=== PATIENT | male | born 1985 | race African-American/Black ===

== ENCOUNTER 2019-03-02 08:40 | Emergency (ER) | payer SELFPAY ==
[~2019-03-02] VITALS: Ht 167.6 cm; Wt 54.4 kg
[2019-03-02 08:40] VITALS: BP 146/91
[2019-03-02 09:15] LABS: BASO # 0.1 x10^3/uL (0.0-0.2); BASO % 1 % (0-3); EOS % 0 % (0-3); HEMATOCRIT 41.9 % (39.0-53.0); HEMOGLOBIN 13.6 g/dL (13.0-17.5); LYMPH % 26 % (24-48); MEAN CORPUSCULAR HEMOGLOBIN 26 pg (25-35); MEAN CORPUSCULAR HGB CONC 32 g/dL (31-37); MEAN CORPUSCULAR VOLUME 82 fL (79-100); MONO # 0.6 x10^3/uL (0.0-1.1); MONO % 6 % (0-9); NEUT # 7.6 x10^3uL (1.8-7.7); NEUT % 67 % (31-73); PLATELET COUNT 418 x10^3/uL (140-400); RED BLOOD COUNT 5.14 x10^6/uL (4.30-5.70); RED CELL DISTRIBUTION WIDTH 14.3 % (11.5-14.5); WHITE BLOOD COUNT 11.4 x10^3/uL (4.0-11.0)
[2019-03-02] MEDS ORDERED: IV NORMAL SALINE 1000ML BAG 1,000 ML IV ONE (09:15)
[2019-03-02] MEDS ORDERED: ONDANSETRON PF 4 MG/2 ML VIAL. ONE (09:20)
[2019-03-02 09:25] LABS: CREATININE 1.3 mg/dL (0.7-1.3); GFR 64.4
[2019-03-02 09:28] LABS: ACETAMIN < 2 mcg/ml (10-30); SALIC 5.3 mg/dL (2.8-20.0)
[2019-03-02 09:29] LABS: ETHANOL < 10 mg/dL (0-10)
[2019-03-02 09:33] LABS: ALBUMIN/GLOBULIN RATIO 0.7 (1.0-1.7); TOTAL BILIRUBIN 0.3 mg/dL (0.2-1.0); TOTAL PROTEIN 7.5 g/dL (6.4-8.2)
[2019-03-02 09:42] LABS: BILIRUBIN,URINE NEGATIVE (NEG); CLARITY,URINE CLEAR; COLOR,URINE YELLOW; NITRITE,URINE NEGATIVE (NEG); PROTEIN,URINE 100 mg/dL (NEG-TRACE); UROBILINOGEN,URINE 0.2 mg/dL (0.2 mg/dL)
[2019-03-02] MEDS ORDERED: ONDANSETRON PF 4 MG/2 ML VIAL. IV ONE (09:45)
[2019-03-02 09:47] LABS: AMPHETAMINE/METHAMPHETAMINE NEG (NEG); BARBITURATES NEG (NEG); BENZODIAZEPINES NEG (NEG); CANNABINOIDS POS (NEG); COCAINE NEG (NEG); METHADONE NEG (NEG); OPIATES NEG (NEG); PHENCYCLIDINE NEG (NEG)
--- NOTE | 2019-03-02 09:48 | EKG ---
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
--- NOTE | 2019-03-02 09:49 | PHYS DOC ---
Past Medical History Past Medical History: Seizure Past Surgical History: No Surgical History Alcohol Use: Occasionally Drug Use: None Adult General Chief Complaint Chief Complaint: SEIZURE HPI HPI Patient is a 33 year old L was brought here from home by EMS for evaluation of seizure activity. Patient said he had a history of seizure disorder, he was evaluated at [facility] 4 months ago for seizure activity. Patient said they did nothing for him, he is not taking any seizure medication. Patient said this morning he went to the toilet, when he came back into his bed he started shaking for a few minutes. Patient never fell down or hit his head on anything. Patient admitted of smoking heavy marijuana. He denies any head injury. Patient denies any other drugs uses. He denies any headache or neck pain, no fever. HE did request EMS to take him here. He does not want to go back to [facility]. Patient denies any abdominal pain, no chest pain, no trouble breathing. Review of Systems Review of Systems Constitutional: Denies fever or chills [] Eyes: Denies change in visual acuity, redness, or eye pain [] HENT: Denies nasal congestion or sore throat [] Respiratory: Denies cough or shortness of breath [] Cardiovascular: No additional information not addressed in HPI [] GI: Denies abdominal pain, nausea, vomiting, bloody stools or diarrhea [] : Denies dysuria or hematuria [] Musculoskeletal: Denies back pain or joint pain [] Integument: Denies rash or skin lesions [] Neurologic: Denies headache, focal weakness or sensory changes. POSITIVE FOR SEIZURE ACTIVITY. Endocrine: Denies polyuria or polydipsia [] All other systems were reviewed and found to be within normal limits, except as documented in this note. Current Medications Current Medications Current Medications Medications (Trade) Dose Ordered Sig/Zaid Start Time Stop Time Status Last Admin Dose Admin Ondansetron HCl (Zofran) 4 mg STK-MED ONCE 03/02/19 09:20 03/02/19 09:21 DC Sodium Chloride 1,000 ml @ 1,000 mls/hr 1X ONCE 03/02/19 09:15 03/02/19 10:14 DC Allergies Allergies Allergies Coded Allergies Type Severity Reaction Last Updated Verified No Known Drug Allergies 03/02/19 No Physical Exam Physical Exam Constitutional: Well developed, well nourished, no acute distress, non-toxic appearance. [] HENT: Normocephalic, atraumatic, bilateral external ears normal, oropharynx moist, no oral exudates, nose normal. [] Eyes: PERRLA, EOMI, conjunctiva normal, no discharge. [] Neck: Normal range of motion, no tenderness, supple, no stridor. [] Cardiovascular:Heart rate regular rhythm, no murmur [] Lungs & Thorax: Bilateral breath sounds clear to auscultation [] Abdomen: Bowel sounds normal, soft, no tenderness, no masses, no pulsatile masses. [] Skin: Warm, dry, no erythema, no rash. [] Back: No tenderness, no CVA tenderness. [] Extremities: No tenderness, no cyanosis, no clubbing, ROM intact, no edema. [] Neurologic: Alert and oriented X 3, normal motor function, normal sensory function, no focal deficits noted. [] Psychologic: Affect normal, judgement normal, mood normal. [] Current Patient Data Vital Signs Vital Signs Date Time Temp Pulse Resp B/P (MAP) Pulse Ox O2 Delivery O2 Flow Rate FiO2 03/02/19 08:40 98.7 114 20 146/91 (109) 90 Nasal Cannula 2.0 98.7 Lab Values Laboratory Tests Test 03/02/19 08:56 03/02/19 09:34 White Blood Count 11.4 x10^3/uL (4.0-11.0) H Red Blood Count 5.14 x10^6/uL (4.30-5.70) Hemoglobin 13.6 g/dL (13.0-17.5) Hematocrit 41.9 % (39.0-53.0) Mean Corpuscular Volume 82 fL (79-100) Mean Corpuscular Hemoglobin 26 pg (25-35) Mean Corpuscular Hemoglobin Concent 32 g/dL (31-37) Red Cell Distribution Width 14.3 % (11.5-14.5) Platelet Count 418 x10^3/uL (140-400) H Neutrophils (%) (Auto) 67 % (31-73) Lymphocytes (%) (Auto) 26 % (24-48) Monocytes (%) (Auto) 6 % (0-9) Eosinophils (%) (Auto) 0 % (0-3) Basophils (%) (Auto) 1 % (0-3) Neutrophils # (Auto) 7.6 x10^3uL (1.8-7.7) Lymphocytes # (Auto) 3.0 x10^3/uL (1.0-4.8) Monocytes # (Auto) 0.6 x10^3/uL (0.0-1.1) Eosinophils # (Auto) 0.0 x10^3/uL (0.0-0.7) Basophils # (Auto) 0.1 x10^3/uL (0.0-0.2) Sodium Level 138 mmol/L (136-145) Potassium Level 4.0 mmol/L (3.5-5.1) Chloride Level 103 mmol/L (98-107) Carbon Dioxide Level 18 mmol/L (21-32) L Anion Gap 17 (6-14) H Blood Urea Nitrogen 9 mg/dL (8-26) Creatinine 1.3 mg/dL (0.7-1.3) Estimated GFR (Cockcroft-Gault) 64.4 BUN/Creatinine Ratio 7 (6-20) Glucose Level 127 mg/dL (70-99) H Lactic Acid Level 9.3 mmol/L (0.4-2.0) *H Calcium Level 9.0 mg/dL (8.5-10.1) Total Bilirubin 0.3 mg/dL (0.2-1.0) Aspartate Amino Transferase (AST) 18 U/L (15-37) Alanine Aminotransferase (ALT) 19 U/L (16-63) Alkaline Phosphatase 71 U/L (46-116) Total Protein 7.5 g/dL (6.4-8.2) Albumin 3.0 g/dL (3.4-5.0) L Albumin/Globulin Ratio 0.7 (1.0-1.7) L Salicylates Level 5.3 mg/dL (2.8-20.0) Salicylate Last Dose Date Unknown Salicylate Last Dose Time Unknown Acetaminophen Level < 2 mcg/ml (10-30) L Acetaminophen Last Dose Date Unknown Acetaminophen Last Dose Time Unknown Ethyl Alcohol Level < 10 mg/dL (0-10) Urine Collection Type Void Urine Color Yellow Urine Clarity Clear Urine pH 5.0 Urine Specific [place] 1.015 Urine Protein 100 mg/dL (NEG-TRACE) Urine Glucose (UA) Negative mg/dL (NEG) Urine Ketones (Stick) Negative mg/dL (NEG) Urine Blood Negative (NEG) Urine Nitrite Negative (NEG) Urine Bilirubin Negative (NEG) Urine Urobilinogen Dipstick 0.2 mg/dL (0.2 mg/dL) Urine Leukocyte Esterase Small (NEG) Urine RBC 1-2 /HPF (0-2) Urine WBC 20-40 /HPF (0-4) Urine Squamous Epithelial Cells Few /LPF Urine Bacteria Few /HPF (0-FEW) Urine Hyaline Casts Few /HPF Urine Mucus Marked /LPF Urine Opiates Screen Neg (NEG) Urine Methadone Screen Neg (NEG) Urine Barbiturates Neg (NEG) Urine Phencyclidine Screen Neg (NEG) Urine Amphetamine/Methamphetamine Neg (NEG) Urine Benzodiazepines Screen Neg (NEG) Urine Cocaine Screen Neg (NEG) Urine Cannabinoids Screen Pos (NEG) Urine Ethyl Alcohol Neg (NEG) Laboratory Tests 03/02/19 08:56 Laboratory Tests 03/02/19 08:56 EKG EKG EKG was read by this physician at 9: 20 AM show heart rate 104 bpm sinus tachycardia, no STEMI[] Radiology/Procedures Radiology/Procedures [] Course & Med Decision Making Course & Med Decision Making Pertinent Labs and Imaging studies reviewed. (See chart for details) Patient refused IV fluid, IV nausea medication. Patient refused CT scan his head. Patient said he felt much better now he wanted to be released [facility]ART[facility]. Patient signed out against medical advice. Dragon Disclaimer Dragon Disclaimer This electronic medical record was generated, in whole or in part, using a voice recognition dictation system. Departure Departure Impression: Primary Impression: Seizure Disposition: 07 AGAINST MEDICAL ADVICE Condition: STABLE Patient Instructions: Discharge Against Medical Advice ESEQUIEL KELLY DO March 02, 2019 09:49
[2019-03-02 09:57] LABS: BACTERIA,URINE FEW /HPF (0-FEW); HYALINE CASTS, URINE FEW /HPF; SQUAMOUS EPITHELIAL CELL,UR FEW /LPF; WBC,URINE 20-40 /HPF (0-4)
== END 2019-03-02 09:51 | disposition home or self-care (01) ==
LOC: ER 08:40
DX: G40.909 Epilepsy, unspecified, not intractable, without status epilepticus (principal); R00.0 Tachycardia, unspecified; F12.90 Cannabis use, unspecified, uncomplicated
CPT/HCPCS: 36415; 80053; 80307; 80329; 81001; 83605; 85025; 87086; 93005; 99285; G0480

== ENCOUNTER 2019-06-18 00:36 | Emergency (ER) | payer SELFPAY ==
[~2019-06-18] VITALS: Ht 165.1 cm; Wt 59.0 kg
[2019-06-18] MEDS ORDERED: IV NORMAL SALINE 1000ML BAG 1,000 ML IV ONE ×2 (01:00→01:45)
[2019-06-18 01:44] LABS: BASO % 1 % (0-3); EOS % 0 % (0-3); HEMATOCRIT 40.3 % (39.0-53.0); HEMOGLOBIN 13.8 g/dL (13.0-17.5); LYMPH # 0.8 x10^3/uL (1.0-4.8); LYMPH % 13 % (24-48); MEAN CORPUSCULAR HEMOGLOBIN 28 pg (25-35); MEAN CORPUSCULAR HGB CONC 34 g/dL (31-37); MEAN CORPUSCULAR VOLUME 81 fL (79-100); MONO # 0.9 x10^3/uL (0.0-1.1); MONO % 16 % (0-9); NEUT # 4.3 x10^3/uL (1.8-7.7); NEUT % 70 % (31-73); PLATELET COUNT 168 x10^3/uL (140-400); RED CELL DISTRIBUTION WIDTH 15.7 % (11.5-14.5)
[2019-06-18] MEDS ORDERED: ACETAMINOPHEN 650 MG SUPP.RECT. PR ONE (01:45)
[2019-06-18 01:54] LABS: CALCIUM 8.9 mg/dL (8.5-10.1); CREATININE 1.2 mg/dL (0.7-1.3); GFR 85.4; POTASSIUM 3.9 mmol/L (3.5-5.1)
[2019-06-18 01:59] LABS: ALBUMIN 3.7 g/dL (3.4-5.0); ALBUMIN/GLOBULIN RATIO 0.9 (1.0-1.7); MAGNESIUM 1.6 mg/dL (1.8-2.4); TOTAL BILIRUBIN 0.6 mg/dL (0.2-1.0); TOTAL PROTEIN 7.8 g/dL (6.4-8.2)
[2019-06-18 02:01] LABS: BILIRUBIN,URINE NEGATIVE (NEG); CLARITY,URINE CLEAR; COLOR,URINE YELLOW; NITRITE,URINE NEGATIVE (NEG); PROTEIN,URINE 100 mg/dL (NEG-TRACE); UROBILINOGEN,URINE 0.2 mg/dL (0.2 mg/dL)
[2019-06-18 02:08] LABS: BARBITURATES NEG (NEG); BENZODIAZEPINES NEG (NEG); CANNABINOIDS POS (NEG); COCAINE NEG (NEG); METHADONE NEG (NEG); OPIATES NEG (NEG); PHENCYCLIDINE NEG (NEG)
[2019-06-18 02:09] LABS: AMPHETAMINE/METHAMPHETAMINE NEG (NEG); RBC,URINE OCC /HPF (0-2)
[2019-06-18 02:10] LABS: AMORPHOUS SEDIMENT,UR PRESENT /HPF; BACTERIA,URINE 0 /HPF (0-FEW); HYALINE CASTS, URINE FEW /HPF; SQUAMOUS EPITHELIAL CELL,UR OCC /LPF
--- NOTE | 2019-06-18 03:11 | RAD ---
AP chest. HISTORY: Fever AP view was taken of the chest. Lungs are clear. Heart is normal in size. There is no pleural effusion. IMPRESSION: 1. No acute infiltrates. Electronically signed by: Forest Field MD (06/18/2019 3:08 AM) [facility]
--- NOTE | 2019-06-18 04:35 | RAD ---
CT brain without contrast. HISTORY: Seizure CT scan of brain was done without contrast. There is no intracranial hemorrhage or subdural hematoma. There is no mass or shift of the midline. An acute CVA is not identified. Ventricles are normal in size. Sinuses are clear except for a mucous retention cyst in the left sphenoid sinus. IMPRESSION: 1. No intracranial hemorrhage or acute finding noted. PQRS Compliance Statement: One or more of the following individualized dose reduction techniques were utilized for this examination: 1. Automated exposure control 2. Adjustment of the mA and/or kV according to patient size 3. Use of iterative reconstruction technique Electronically signed by: Forest Field MD (06/18/2019 4:32 AM) [facility]
[2019-06-18 04:42] VITALS: BP 105/60
--- NOTE | 2019-06-18 05:51 | PHYS DOC ---
Past Medical History Past Medical History: Seizure Past Surgical History: No Surgical History Alcohol Use: Occasionally Drug Use: None Adult General Chief Complaint Chief Complaint: SEIZURE HPI HPI Patient is a 33 year old [f__sex] who presents with [] Review of Systems Review of Systems Constitutional: Denies fever or chills [] Eyes: Denies change in visual acuity, redness, or eye pain [] HENT: Denies nasal congestion or sore throat [] Respiratory: Denies cough or shortness of breath [] Cardiovascular: No additional information not addressed in HPI [] GI: Denies abdominal pain, nausea, vomiting, bloody stools or diarrhea [] : Denies dysuria or hematuria [] Musculoskeletal: Denies back pain or joint pain [] Integument: Denies rash or skin lesions [] Neurologic: Denies headache, focal weakness or sensory changes [] Endocrine: Denies polyuria or polydipsia [] All other systems were reviewed and found to be within normal limits, except as documented in this note. Current Medications Current Medications Current Medications Medications (Trade) Dose Ordered Sig/Zaid Start Time Stop Time Status Last Admin Dose Admin Acetaminophen (Tylenol Supp) 650 mg 1X ONCE 06/18/19 01:45 06/18/19 01:46 DC 06/18/19 01:46 650 MG Lorazepam (Ativan Inj) 1 mg 1X ONCE 06/18/19 01:45 06/18/19 01:46 DC 06/18/19 01:46 1 MG Sodium Chloride 1,000 ml @ 1,000 mls/hr 1X ONCE 06/18/19 01:45 06/18/19 02:44 DC 06/18/19 02:51 1,000 MLS/HR Allergies Allergies Allergies Coded Allergies Type Severity Reaction Last Updated Verified No Known Drug Allergies 03/02/19 No Physical Exam Physical Exam Constitutional: Well developed, well nourished, no acute distress, non-toxic appearance. [] HENT: Normocephalic, atraumatic, bilateral external ears normal, oropharynx moist, no oral exudates, nose normal. [] Eyes: PERRLA, EOMI, conjunctiva normal, no discharge. [] Neck: Normal range of motion, no tenderness, supple, no stridor. [] Cardiovascular:Heart rate regular rhythm, no murmur [] Lungs & Thorax: Bilateral breath sounds clear to auscultation [] Abdomen: Bowel sounds normal, soft, no tenderness, no masses, no pulsatile masses. [] Skin: Warm, dry, no erythema, no rash. [] Back: No tenderness, no CVA tenderness. [] Extremities: No tenderness, no cyanosis, no clubbing, ROM intact, no edema. [] Neurologic: Alert and oriented X 3, normal motor function, normal sensory function, no focal deficits noted. [] Psychologic: Affect normal, judgement normal, mood normal. [] Current Patient Data Vital Signs Vital Signs Date Time Temp Pulse Resp B/P (MAP) Pulse Ox O2 Delivery O2 Flow Rate FiO2 06/18/19 04:42 80 26 96 06/18/19 00:45 101.2 125/71 (89) Room Air 101.2 Lab Values Laboratory Tests Test 06/18/19 01:18 06/18/19 01:50 06/18/19 02:45 White Blood Count 6.0 x10^3/uL (4.0-11.0) Red Blood Count 5.00 x10^6/uL (4.30-5.70) Hemoglobin 13.8 g/dL (13.0-17.5) Hematocrit 40.3 % (39.0-53.0) Mean Corpuscular Volume 81 fL (79-100) Mean Corpuscular Hemoglobin 28 pg (25-35) Mean Corpuscular Hemoglobin Concent 34 g/dL (31-37) Red Cell Distribution Width 15.7 % (11.5-14.5) H Platelet Count 168 x10^3/uL (140-400) Neutrophils (%) (Auto) 70 % (31-73) Lymphocytes (%) (Auto) 13 % (24-48) L Monocytes (%) (Auto) 16 % (0-9) H Eosinophils (%) (Auto) 0 % (0-3) Basophils (%) (Auto) 1 % (0-3) Neutrophils # (Auto) 4.3 x10^3/uL (1.8-7.7) Lymphocytes # (Auto) 0.8 x10^3/uL (1.0-4.8) L Monocytes # (Auto) 0.9 x10^3/uL (0.0-1.1) Eosinophils # (Auto) 0.0 x10^3/uL (0.0-0.7) Basophils # (Auto) 0.0 x10^3/uL (0.0-0.2) Sodium Level 136 mmol/L (136-145) Potassium Level 3.9 mmol/L (3.5-5.1) Chloride Level 101 mmol/L (98-107) Carbon Dioxide Level 24 mmol/L (21-32) Anion Gap 11 (6-14) Blood Urea Nitrogen 9 mg/dL (8-26) Creatinine 1.2 mg/dL (0.7-1.3) Estimated GFR (Cockcroft-Gault) 85.4 BUN/Creatinine Ratio 8 (6-20) Glucose Level 89 mg/dL (70-99) Lactic Acid Level 0.5 mmol/L (0.4-2.0) Calcium Level 8.9 mg/dL (8.5-10.1) Magnesium Level 1.6 mg/dL (1.8-2.4) L Total Bilirubin 0.6 mg/dL (0.2-1.0) Aspartate Amino Transferase (AST) 19 U/L (15-37) Alanine Aminotransferase (ALT) 16 U/L (16-63) Alkaline Phosphatase 72 U/L (46-116) Creatine Kinase 155 U/L (39-308) Total Protein 7.8 g/dL (6.4-8.2) Albumin 3.7 g/dL (3.4-5.0) Albumin/Globulin Ratio 0.9 (1.0-1.7) L Urine Collection Type Unknown Urine Color Yellow Urine Clarity Clear Urine pH 5.0 Urine Specific [place] 1.015 Urine Protein 100 mg/dL (NEG-TRACE) Urine Glucose (UA) Negative mg/dL (NEG) Urine Ketones (Stick) 15 mg/dL (NEG) Urine Blood Trace (NEG) Urine Nitrite Negative (NEG) Urine Bilirubin Negative (NEG) Urine Urobilinogen Dipstick 0.2 mg/dL (0.2 mg/dL) Urine Leukocyte Esterase Negative (NEG) Urine RBC Occ /HPF (0-2) Urine WBC 1-4 /HPF (0-4) Urine Squamous Epithelial Cells Occ /LPF Urine Amorphous Sediment Present /HPF Urine Bacteria 0 /HPF (0-FEW) Urine Hyaline Casts Few /HPF Urine Mucus Marked /LPF Urine Opiates Screen Neg (NEG) Urine Methadone Screen Neg (NEG) Urine Barbiturates Neg (NEG) Urine Phencyclidine Screen Neg (NEG) Urine Amphetamine/Methamphetamine Neg (NEG) Urine Benzodiazepines Screen Neg (NEG) Urine Cocaine Screen Neg (NEG) Urine Cannabinoids Screen Pos (NEG) Urine Ethyl Alcohol Neg (NEG) Ammonia 11 mcmol/L (11-34) Laboratory Tests 06/18/19 01:18 Laboratory Tests 06/18/19 01:18 EKG EKG @0048 NSR at 85bpm, NO ST elevation, Radiology/Procedures Radiology/Procedures [] Course & Med Decision Making Course & Med Decision Making Pertinent Labs and Imaging studies reviewed. (See chart for details) [] Dragon Disclaimer Dragon Disclaimer This electronic medical record was generated, in whole or in part, using a voice recognition dictation system. Departure Departure Impression: Primary Impression: Altered mental status Additional Impression: Witnessed seizure-like activity Disposition: ADMITTED INPATIENT Admitting Physician: JOSE LUIS Cruz) Condition: GUARDED Referrals: NO PCP (PCP) Problem Qualifiers Primary Impression: Altered mental status Altered mental status type: unspecified Qualified Codes: R41.82 - Altered mental status, unspecified LUIS MCCABE DO Jun 18, 2019 05:51
[2019-06-18] MEDS ORDERED: ONDANSETRON PF 4 MG/2 ML VIAL. IV PRN (06:15)
--- NOTE | 2019-06-18 06:19 | EKG ---
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
== END 2019-06-18 06:50 | disposition left against medical advice (07) ==
LOC: ER 00:36 → UNDOADMIN 06:00 → 6 SOUTH 06:00 → ER 06:50
DX: R56.9 Unspecified convulsions (principal); R41.82 Altered mental status, unspecified
CPT/HCPCS: 36415; 70450; 71045; 80053; 80307; 81001; 82140; 82550; 83605; 83735; 85025; 87040; 93005; 96361; 96374; 99285; J2060; J7030

== ENCOUNTER 2019-10-17 02:11 | Observation (INO) | payer SELFPAY ==
[~2019-10-17] VITALS: Ht 180.3 cm; Wt 59.0 kg
[2019-10-17 02:41] LABS: BASO # 0.1 x10^3/uL (0.0-0.2); BASO % 1 % (0-3); EOS # 0.2 x10^3/uL (0.0-0.7); EOS % 1 % (0-3); HEMATOCRIT 46.1 % (39.0-53.0); HEMOGLOBIN 15.2 g/dL (13.0-17.5); LYMPH % 61 % (24-48); MEAN CORPUSCULAR HEMOGLOBIN 29 pg (25-35); MEAN CORPUSCULAR HGB CONC 33 g/dL (31-37); MEAN CORPUSCULAR VOLUME 87 fL (79-100); MONO # 0.9 x10^3/uL (0.0-1.1); MONO % 8 % (0-9); NEUT # 3.4 x10^3/uL (1.8-7.7); NEUT % 29 % (31-73); PLATELET COUNT 249 x10^3/uL (140-400); RED BLOOD COUNT 5.31 x10^6/uL (4.30-5.70); RED CELL DISTRIBUTION WIDTH 14.1 % (11.5-14.5); WHITE BLOOD COUNT 11.5 x10^3/uL (4.0-11.0)
[2019-10-17 02:50] LABS: PROTHROMBIN TIME PATIENT 13.7 SEC (11.7-14.0)
[2019-10-17 02:57] LABS: ALBUMIN 4.1 g/dL (3.4-5.0); ALBUMIN/GLOBULIN RATIO 1.1 (1.0-1.7); CALCIUM 9.6 mg/dL (8.5-10.1); CREATININE 1.5 mg/dL (0.7-1.3); MAGNESIUM 1.8 mg/dL (1.8-2.4); POTASSIUM 3.7 mmol/L (3.5-5.1); TOTAL BILIRUBIN 0.5 mg/dL (0.2-1.0)
[2019-10-17 02:59] LABS: BILIRUBIN,URINE NEGATIVE (NEG); CLARITY,URINE CLEAR; COLOR,URINE YELLOW; NITRITE,URINE NEGATIVE (NEG); PROTEIN,URINE 30 mg/dL (NEG-TRACE); UROBILINOGEN,URINE 0.2 mg/dL (0.2 mg/dL)
[2019-10-17] MEDS ORDERED: IV NORMAL SALINE 1000ML BAG 1,000 ML IV ONE (03:00)
[2019-10-17 03:05] LABS: AMPHETAMINE/METHAMPHETAMINE NEG (NEG); BARBITURATES NEG (NEG); BENZODIAZEPINES NEG (NEG); CANNABINOIDS POS (NEG); COCAINE NEG (NEG); METHADONE NEG (NEG); OPIATES NEG (NEG); PHENCYCLIDINE NEG (NEG)
[2019-10-17 03:10] LABS: SQUAMOUS EPITHELIAL CELL,UR OCC /LPF
[2019-10-17 03:11] LABS: BACTERIA,URINE 0 /HPF (0-FEW); RBC,URINE OCC /HPF (0-2); WBC,URINE OCC /HPF (0-4)
[2019-10-17 03:18] LABS: % ATYL 8 % (0-0); % LYMPHS 52 % (24-48); % MONOS 4 % (0-10); % SEGS 36 % (35-66); PLT ESTIMATE ADEQUATE (ADEQUATE)
--- NOTE | 2019-10-17 03:55 | RAD ---
CT head without contrast. CT cervical spine without contrast. PQRS statement: CT scans at this facility use dose reduction including either automated exposure control, iterative reconstructions, and /or weight based radiation dosing via mA and kV modification when appropriate to reduce radiation dose to as low as reasonably achievable. HISTORY: Headache, seizure, fell and hit head. COMPARISON: CT head June 18, 2019. CT head findings: No intracranial hemorrhage, mass, hydrocephalus, extra-axial fluid collections or infarction. Mild mucosal thickening left sphenoid sinus. Orbits, mastoids and bones are unremarkable. IMPRESSION: No acute intracranial CT abnormality. CT cervical spine findings: There is motion artifact by the patient at the skull base and cervical junction and at the C1 and C2 and upper C3 vertebra the extent of which decreases the sensitivity to detect traumatic pathology including fracture. Craniocervical junction remains intact. The lower cervical spine demonstrates intact vertebral height and alignment without a fracture. There is a linear fragment anterior and inferior left C3 transverse process, raising the possibility of a fracture, the sclerotic margins and mild spurring about its margins could indicate that this is chronic. Lung apices and paraspinal tissues are unremarkable. IMPRESSION: Motion degraded exam as described above. There is a small linear sclerotic fragment along the C3 left transverse process which could represent a small fracture fragment, possibly but not definitively chronic. FOR INTERNAL CODING PURPOSES Critical result: Critical results called to ESEQUIEL KELLY at 10/17/2019 3:51 AM. RESULT CODE: (C) Electronically signed by: Satya Leon MD (10/17/2019 3:52 AM) [facility]
--- NOTE | 2019-10-17 04:07 | PHYS DOC ---
Past Medical History Past Medical History: Seizure Past Surgical History: No Surgical History Alcohol Use: Occasionally Drug Use: None Adult General Chief Complaint Chief Complaint: SEIZURE HPI HPI Patient is a 33 year old male who was brought here from home by EMS after he was found in the bathroom having a seizure by his girlfriend. Upon arrival to ER, patient was dried heaving, was confused. MS reported that his family said he had history of seizure disorder but he was not on any medication. He was seen here twice last year for seizure activity but he signed out against medical advice. He Was seen at [facility] last year for seizure activity as well. His girlfriend stated that they did not thing for him. All other ROS is negative unless otherwise noted in HPI Review of Systems Review of Systems See above Current Medications Current Medications Current Medications Medications (Trade) Dose Ordered Sig/Zaid Start Time Stop Time Status Last Admin Dose Admin Lorazepam (Ativan Inj) 1 mg 1X ONCE 10/17/19 03:00 10/17/19 03:01 DC 10/17/19 02:59 1 MG Ondansetron HCl (Zofran) 4 mg PRN Q8HRS PRN 10/17/19 04:30 10/18/19 04:29 10/17/19 04:50 4 MG Sodium Chloride 1,000 ml @ 1,000 mls/hr 1X ONCE 10/17/19 03:00 10/17/19 03:59 DC 10/17/19 02:59 1,000 MLS/HR Allergies Allergies Allergies Coded Allergies Type Severity Reaction Last Updated Verified No Known Drug Allergies 03/02/19 No Physical Exam Physical Exam See above Constitutional: Well developed, well nourished, no acute distress, non-toxic appearance. APPEARED CONFUSED, POSTICTAL. HENT: Normocephalic, atraumatic, bilateral external ears normal, oropharynx moist, no oral exudates, nose normal. [] Eyes: PERRLA, EOMI, conjunctiva normal, no discharge. [] Neck: Normal range of motion, no tenderness, supple, no stridor. [] Cardiovascular:Heart rate regular rhythm, no murmur [] Lungs & Thorax: Bilateral breath sounds clear to auscultation [] Abdomen: Bowel sounds normal, soft, no tenderness, no masses, no pulsatile masses. [] Skin: Warm, dry, no erythema, no rash. [] Back: No tenderness, no CVA tenderness. [] Extremities: No tenderness, no cyanosis, no clubbing, ROM intact, no edema. [] Neurologic: Alert and AWAKE BUT CONFUSED, normal motor function, normal sensory function, no focal deficits noted. [] Psychologic: Affect normal, judgement normal, mood normal. [] Current Patient Data Vital Signs Vital Signs Date Time Temp Pulse Resp B/P (MAP) Pulse Ox O2 Delivery O2 Flow Rate FiO2 10/17/19 02:11 97.6 111 18 132/73 (92) 99 Nasal Cannula 2.0 97.6 Lab Values Laboratory Tests Test 10/17/19 02:31 10/17/19 02:51 White Blood Count 11.5 x10^3/uL (4.0-11.0) H Red Blood Count 5.31 x10^6/uL (4.30-5.70) Hemoglobin 15.2 g/dL (13.0-17.5) Hematocrit 46.1 % (39.0-53.0) Mean Corpuscular Volume 87 fL (79-100) Mean Corpuscular Hemoglobin 29 pg (25-35) Mean Corpuscular Hemoglobin Concent 33 g/dL (31-37) Red Cell Distribution Width 14.1 % (11.5-14.5) Platelet Count 249 x10^3/uL (140-400) Neutrophils (%) (Auto) 29 % (31-73) L Lymphocytes (%) (Auto) 61 % (24-48) H Monocytes (%) (Auto) 8 % (0-9) Eosinophils (%) (Auto) 1 % (0-3) Basophils (%) (Auto) 1 % (0-3) Neutrophils # (Auto) 3.4 x10^3/uL (1.8-7.7) Lymphocytes # (Auto) 7.0 x10^3/uL (1.0-4.8) H Monocytes # (Auto) 0.9 x10^3/uL (0.0-1.1) Eosinophils # (Auto) 0.2 x10^3/uL (0.0-0.7) Basophils # (Auto) 0.1 x10^3/uL (0.0-0.2) Segmented Neutrophils % 36 % (35-66) Lymphocytes % 52 % (24-48) H Atypical Lymphocytes % (Manual) 8 % (0-0) H Monocytes % 4 % (0-10) Platelet Estimate Adequate (ADEQUATE) Giant Platelets Occ Prothrombin Time 13.7 SEC (11.7-14.0) Prothrombin Time INR 1.1 (0.8-1.1) Activated Partial Thromboplast Time 28 SEC (24-38) Sodium Level 138 mmol/L (136-145) Potassium Level 3.7 mmol/L (3.5-5.1) Chloride Level 101 mmol/L (98-107) Carbon Dioxide Level 13 mmol/L (21-32) L Anion Gap 24 (6-14) H Blood Urea Nitrogen 21 mg/dL (8-26) Creatinine 1.5 mg/dL (0.7-1.3) H Estimated GFR (Cockcroft-Gault) 66.0 BUN/Creatinine Ratio 14 (6-20) Glucose Level 160 mg/dL (70-99) H Calcium Level 9.6 mg/dL (8.5-10.1) Magnesium Level 1.8 mg/dL (1.8-2.4) Total Bilirubin 0.5 mg/dL (0.2-1.0) Aspartate Amino Transferase (AST) 19 U/L (15-37) Alanine Aminotransferase (ALT) 13 U/L (16-63) L Alkaline Phosphatase 71 U/L (46-116) Creatine Kinase 261 U/L (39-308) Creatine Kinase MB (Mass) 3.3 ng/mL (0.0-3.6) Creatine Kinase MB Relative Index 1.3 % (0-4) Troponin I Quantitative < 0.017 ng/mL (0.000-0.055) Total Protein 8.0 g/dL (6.4-8.2) Albumin 4.1 g/dL (3.4-5.0) Albumin/Globulin Ratio 1.1 (1.0-1.7) Ethyl Alcohol Level < 10 mg/dL (0-10) Urine Collection Type Unknown Urine Color Yellow Urine Clarity Clear Urine pH 5.0 Urine Specific [place] 1.015 Urine Protein 30 mg/dL (NEG-TRACE) Urine Glucose (UA) Negative mg/dL (NEG) Urine Ketones (Stick) Negative mg/dL (NEG) Urine Blood Moderate (NEG) Urine Nitrite Negative (NEG) Urine Bilirubin Negative (NEG) Urine Urobilinogen Dipstick 0.2 mg/dL (0.2 mg/dL) Urine Leukocyte Esterase Negative (NEG) Urine RBC Occ /HPF (0-2) Urine WBC Occ /HPF (0-4) Urine Squamous Epithelial Cells Occ /LPF Urine Bacteria 0 /HPF (0-FEW) Urine Mucus Slight /LPF Urine Opiates Screen Neg (NEG) Urine Methadone Screen Neg (NEG) Urine Barbiturates Neg (NEG) Urine Phencyclidine Screen Neg (NEG) Urine Amphetamine/Methamphetamine Neg (NEG) Urine Benzodiazepines Screen Neg (NEG) Urine Cocaine Screen Neg (NEG) Urine Cannabinoids Screen Pos (NEG) Urine Ethyl Alcohol Neg (NEG) Laboratory Tests 10/17/19 02:31 Laboratory Tests 10/17/19 02:31 EKG EKG ekg was done and read at 0252, rate of 90 bpm, SINUS RHYTHM, NO STEMI. [] Radiology/Procedures Radiology/Procedures [][facility] [address] [place], [place] [id number] IMAGING REPORT Signed PATIENT: SYDNIE ARENSA ACCOUNT: [id number] : 1985 LOCATION: ER AGE: 33 SEX: M EXAM STATUS: REG ER ORD. PHYSICIAN: ESEQUIEL KELLY DO REASON: HAD SEIZURE WHILE IN THE SHOWER, FELL DOWN ON THE GROUND, HEADACHE PROCEDURE: CT HEAD AND CERVICAL SPINE WO CT head without contrast. CT cervical spine without contrast. PQRS statement: CT scans at this facility use dose reduction including either automated exposure control, iterative reconstructions, and /or weight based radiation dosing via mA and kV modification when appropriate to reduce radiation dose to as low as reasonably achievable. HISTORY: Headache, seizure, fell and hit head. COMPARISON: CT head June 18, 2019. CT head findings: No intracranial hemorrhage, mass, hydrocephalus, extra-axial fluid collections or infarction. Mild mucosal thickening left sphenoid sinus. Orbits, mastoids and bones are unremarkable. IMPRESSION: No acute intracranial CT abnormality. CT cervical spine findings: There is motion artifact by the patient at the skull base and cervical junction and at the C1 and C2 and upper C3 vertebra the extent of which decreases the sensitivity to detect traumatic pathology including fracture. Craniocervical junction remains intact. The lower cervical spine demonstrates intact vertebral height and alignment without a fracture. There is a linear fragment anterior and inferior left C3 transverse process, raising the possibility of a fracture, the sclerotic margins and mild spurring about its margins could indicate that this is chronic. Lung apices and paraspinal tissues are unremarkable. IMPRESSION: Motion degraded exam as described above. There is a small linear sclerotic fragment along the C3 left transverse process which could represent a small fracture fragment, possibly but not definitively chronic. FOR INTERNAL CODING PURPOSES Critical result: Critical results called to ESEQUIEL KELLY at 10/17/2019 3:51 AM. RESULT CODE: (C) Electronically signed by: Ashley Leon MD (10/17/2019 3:52 AM) [id number] DICTATED and SIGNED BY: ASHLEY LEON MD DATE: 10/17/19 0352 [facility] [address] [place] [address] IMAGING REPORT Signed PATIENT: SYDNIE ARENAS ACCOUNT: [id number] : 1985 LOCATION: [address] [place] [address] AGE: 33 SEX: M EXAM STATUS: ADM IN ORD. PHYSICIAN: ESEQUIEL KELLY DO REASON: FELL IN THE SHOWER, HAD A SEIZURE, NECK PAIN , POOR STUDY EARLIER. PROCEDURE: CT CERVICAL SPINE WO CONTRAST CT cervical spine without contrast PQRS statement: CT scans at this facility use dose reduction including either automated exposure control, iterative reconstructions, and /or weight based radiation dosing via mA and kV modification when appropriate to reduce radiation dose to as low as reasonably achievable. HISTORY: Fall, seizure, neck pain. FINDINGS: Craniocervical junction intact. No fracture of the cervical spine. 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 Paraspinal tissues and lung apices are unremarkable. IMPRESSION: No acute osseous injury of the cervical spine. Electronically signed by: Ashley Leon MD (10/17/2019 5:17 AM) [id number] DICTATED and SIGNED BY: ASHLEY LEON MD DATE: 10/17/19 0517 Course & Med Decision Making Course & Med Decision Making Pertinent Labs and Imaging studies reviewed. (See chart for details) Patient has recurrent seizure, was seen here twice last year for seizure activities. Patient did signed out AMA twice. He is not currently on any anti seizure medication, not sure if he has neurologic work up for his seizure activity. He was given a load dose of keppra iv and he will need to be admitted to the hospital for further evaluation . Patient was amenable to the plan of care. Dragon Disclaimer Dragon Disclaimer This electronic medical record was generated, in whole or in part, using a voice recognition dictation system. Departure Departure Impression: Primary Impression: Seizure Disposition: ADMITTED INPATIENT Admitting Physician: JOSE LUIS (Dr. Brenner) Condition: STABLE Referrals: NO PCP (PCP) ESEQUIEL KELLY DO Oct 17, 2019 04:07
[2019-10-17] MEDS ORDERED: ONDANSETRON PF 4 MG/2 ML VIAL. IV PRN ×2 (04:30→12:45)
[2019-10-17] MEDS ORDERED: levETIRAcetam 1,000 MG in IV DEXTROSE 5% 100ML 100 ML IV ONE (05:00)
--- NOTE | 2019-10-17 05:20 | RAD ---
CT cervical spine without contrast PQRS statement: CT scans at this facility use dose reduction including either automated exposure control, iterative reconstructions, and /or weight based radiation dosing via mA and kV modification when appropriate to reduce radiation dose to as low as reasonably achievable. HISTORY: Fall, seizure, neck pain. FINDINGS: Craniocervical junction intact. No fracture of the cervical spine. 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 Paraspinal tissues and lung apices are unremarkable. IMPRESSION: No acute osseous injury of the cervical spine. Electronically signed by: Satya Leon MD (10/17/2019 5:17 AM) [facility]
[2019-10-17 07:00] VITALS: BP 138/87
--- NOTE | 2019-10-17 08:30 | NUR ---
Pt admitted from ED via gurney. Pt moved to bed. Pt sleeping awakens to touch and answers questions but then drifts back to sleep. Completed assessment. Call light within reach. Will return to monitor.
--- NOTE | 2019-10-17 10:03 | PDOC1 ---
History and Physical Date of Admission Date of Admission DATE: 10/17/19 TIME: 10:02 Identification/Chief Complaint Chief Complaint seen in er , 33 year old male who was brought here from home by EMS after he was found in the bathroom having a seizure by his girlfriend. Upon arrival to ER, patient was dried heaving, was confused. MS reported that his family said he had history of seizure disorder but he was not on any medication. He was seen here twice last year for seizure activity but he signed out against medical advice. He Was seen at [facility] last year for seizure activity as well HE REPORTS HEAVY MARIJUANA USE DAILY Past Medical History Past Medical History Past Medical History Past Medical History Past Medical History: Seizure Past Surgical History: No Surgical History Alcohol Use: Occasionally Drug Use: None Family History Family History: High Cholestrol Social History Smoke: <1 pack per day ALCOHOL: occassional Drugs: None, Marijuana Current Problem List Problem List Problems Medical Problems: (1) Seizure Status: Acute Current Medications Current Medications Current Medications Sodium Chloride 1,000 ml @ 1,000 mls/hr 1X ONCE IV Last administered on 10/17/19at 02:59; Start 10/17/19 at 03:00; Stop 10/17/19 at 03:59; Status DC Lorazepam (Ativan Inj) 1 mg 1X ONCE IVP Last administered on 10/17/19at 02:59; Start 10/17/19 at 03:00; Stop 10/17/19 at 03:01; Status DC Levetiracetam 1000 mg/Dextrose 110 ml @ 440 mls/hr 1X ONCE IV Last administered on 10/17/19at 05:10; Start 10/17/19 at 05:00; Stop 10/17/19 at 05:14; Status DC Ondansetron HCl (Zofran) 4 mg PRN Q8HRS PRN IV NAUSEA/VOMITING 1ST CHOICE Last administered on 10/17/19at 04:50; Start 10/17/19 at 04:30; Stop 10/18/19 at 04:29 Lorazepam (Ativan Inj) 1 mg 1X ONCE IVP Last administered on 10/17/19at 04:44; Start 10/17/19 at 05:00; Stop 10/17/19 at 05:01; Status DC Allergies Allergies: Coded Allergies: No Known Drug Allergies (Unverified , 03/02/19) ROS Review of System 14 PT ROS OTHERWISE NEG General: No: Chills, Night Sweats, Fatigue, Malaise, Appetite, Other PSYCHOLOGICAL ROS: No: Anxiety, Behavioral Disorder, Concentration difficultie, Decreased libido, Depression, Disorientation, Hallucinations, Hostility, Irritablity, Memory difficulties, Mood Swings, Obsessive thoughts, Physical abuse, Sexual abuse, Sleep disturbances, Suicidal ideation, Other Eyes: No Blurry vision, No Decreased vision, No Double vision, No Dry eyes, No Excessive tearing, No Eye Pain, No Itchy Eyes, No Loss of vision, No Photophobia, No Scotomata, No Uses contacts, No Uses glasses, No Other ALLERGY AND IMMUNOLOGY: No: Hives, Insect Bite Sensitivity, Itchy/Watery Eyes, Nasal Congestion, Post Nasal Drip, Seasonal Allergies, Other Hematological and Lymphatic: No: Bleeding Problems, Blood Clots, Blood Transfusions, Brusing, Night Sweats, Pallor, Swollen Lymph Nodes, Other Respiratory: No: Cough, Hemoptysis, Orthopnea, Pleuritic Pain, Shortness of breath, SOB with excertion, Sputum Changes, Stridor, Tachypnea, Wheezing, Other Cardiovascular: No Chest Pain, No Palpitations, No Orthopnea, No Paroxysmal Noc. Dyspnea, No Edema, No Lt Headedness, No Other Genitourinary: No Dysuria, No Frequency, No Incontinence, No Hematuria, No Retention, No Discharge, No Urgency, No Pain, No Flank Pain, No Other, No , No , No , No , No , No , No Skin: No Dry Skin, No Eczema, No Hair Changes, No Lumps, No Mole Changes, No Mottling, No Nail Changes, No Pruritus, No Rash, No Skin Lesion Changes, No Other, No Acne Physical Exam Physical Exam Physical Exam Physical Exam See above Constitutional: Well developed, well nourished, no acute distress, non-toxic appearance. APPEARED CONFUSED, POSTICTAL. in ER, NOW ALERT, ORIENTED HENT: Normocephalic, atraumatic, bilateral external ears normal, oropharynx moist, no oral exudates, nose normal. [] Eyes: PERRLA, EOMI, conjunctiva normal, no discharge. [] Neck: Normal range of motion, no tenderness, supple, no stridor. [] Cardiovascular:Heart rate regular rhythm, no murmur [] Lungs & Thorax: Bilateral breath sounds clear to auscultation [] Abdomen: Bowel sounds normal, soft, no tenderness, no masses, no pulsatile masses. [] Skin: Warm, dry, no erythema, no rash. [] Back: No tenderness, no CVA tenderness. [] Extremities: No tenderness, no cyanosis, no clubbing, ROM intact, no edema. [] Neurologic: Alert and normal motor function, normal sensory function, no focal deficits noted. [] Psychologic: Affect normal, judgment normal, mood normal. [ General: Alert, Oriented X3, Cooperative, No acute distress HEENT: Atraumatic, EOMI, Mucous membr. moist/pink Lungs: Clear to auscultation Heart: RRR Breasts: Not examined Rectal Exam: not examined PELVIC: Examination not indicated Extremities: No cyanosis Neuro: Normal speech, Cranial nerves 3-12 NL Psych/Mental Status: Mental status NL, Mood NL Vitals Vitals Vital Signs Date Time Temp Pulse Resp B/P (MAP) Pulse Ox O2 Delivery O2 Flow Rate FiO2 10/17/19 07:00 98.2 75 16 138/87 (104) 100 Room Air 98.2 10/17/19 02:11 2.0 Labs Labs Laboratory Tests Test 10/17/19 02:31 10/17/19 02:51 White Blood Count 11.5 x10^3/uL (4.0-11.0) Red Blood Count 5.31 x10^6/uL (4.30-5.70) Hemoglobin 15.2 g/dL (13.0-17.5) Hematocrit 46.1 % (39.0-53.0) Mean Corpuscular Volume 87 fL (79-100) Mean Corpuscular Hemoglobin 29 pg (25-35) Mean Corpuscular Hemoglobin Concent 33 g/dL (31-37) Red Cell Distribution Width 14.1 % (11.5-14.5) Platelet Count 249 x10^3/uL (140-400) Neutrophils (%) (Auto) 29 % (31-73) Lymphocytes (%) (Auto) 61 % (24-48) Monocytes (%) (Auto) 8 % (0-9) Eosinophils (%) (Auto) 1 % (0-3) Basophils (%) (Auto) 1 % (0-3) Neutrophils # (Auto) 3.4 x10^3/uL (1.8-7.7) Lymphocytes # (Auto) 7.0 x10^3/uL (1.0-4.8) Monocytes # (Auto) 0.9 x10^3/uL (0.0-1.1) Eosinophils # (Auto) 0.2 x10^3/uL (0.0-0.7) Basophils # (Auto) 0.1 x10^3/uL (0.0-0.2) Segmented Neutrophils % 36 % (35-66) Lymphocytes % 52 % (24-48) Atypical Lymphocytes % (Manual) 8 % (0-0) Monocytes % 4 % (0-10) Platelet Estimate Adequate (ADEQUATE) Giant Platelets Occ Prothrombin Time 13.7 SEC (11.7-14.0) Prothromb Time International Ratio 1.1 (0.8-1.1) Activated Partial Thromboplast Time 28 SEC (24-38) Sodium Level 138 mmol/L (136-145) Potassium Level 3.7 mmol/L (3.5-5.1) Chloride Level 101 mmol/L (98-107) Carbon Dioxide Level 13 mmol/L (21-32) Anion Gap 24 (6-14) Blood Urea Nitrogen 21 mg/dL (8-26) Creatinine 1.5 mg/dL (0.7-1.3) Estimated GFR (Cockcroft-Gault) 66.0 BUN/Creatinine Ratio 14 (6-20) Glucose Level 160 mg/dL (70-99) Calcium Level 9.6 mg/dL (8.5-10.1) Magnesium Level 1.8 mg/dL (1.8-2.4) Total Bilirubin 0.5 mg/dL (0.2-1.0) Aspartate Amino Transf (AST/SGOT) 19 U/L (15-37) Alanine Aminotransferase (ALT/SGPT) 13 U/L (16-63) Alkaline Phosphatase 71 U/L (46-116) Creatine Kinase 261 U/L (39-308) Creatine Kinase MB (Mass) 3.3 ng/mL (0.0-3.6) Creatine Kinase MB Relative Index 1.3 % (0-4) Troponin I Quantitative < 0.017 ng/mL (0.000-0.055) Total Protein 8.0 g/dL (6.4-8.2) Albumin 4.1 g/dL (3.4-5.0) Albumin/Globulin Ratio 1.1 (1.0-1.7) Ethyl Alcohol Level < 10 mg/dL (0-10) Urine Collection Type Unknown Urine Color Yellow Urine Clarity Clear Urine pH 5.0 Urine Specific [place] 1.015 Urine Protein 30 mg/dL (NEG-TRACE) Urine Glucose (UA) Negative mg/dL (NEG) Urine Ketones (Stick) Negative mg/dL (NEG) Urine Blood Moderate (NEG) Urine Nitrite Negative (NEG) Urine Bilirubin Negative (NEG) Urine Urobilinogen Dipstick 0.2 mg/dL (0.2 mg/dL) Urine Leukocyte Esterase Negative (NEG) Urine RBC Occ /HPF (0-2) Urine WBC Occ /HPF (0-4) Urine Squamous Epithelial Cells Occ /LPF Urine Bacteria 0 /HPF (0-FEW) Urine Mucus Slight /LPF Urine Opiates Screen Neg (NEG) Urine Methadone Screen Neg (NEG) Urine Barbiturates Neg (NEG) Urine Phencyclidine Screen Neg (NEG) Urine Amphetamine/Methamphetamine Neg (NEG) Urine Benzodiazepines Screen Neg (NEG) Urine Cocaine Screen Neg (NEG) Urine Cannabinoids Screen Pos (NEG) Urine Ethyl Alcohol Neg (NEG) Laboratory Tests Test 10/17/19 02:31 10/17/19 02:51 White Blood Count 11.5 x10^3/uL (4.0-11.0) Red Blood Count 5.31 x10^6/uL (4.30-5.70) Hemoglobin 15.2 g/dL (13.0-17.5) Hematocrit 46.1 % (39.0-53.0) Mean Corpuscular Volume 87 fL (79-100) Mean Corpuscular Hemoglobin 29 pg (25-35) Mean Corpuscular Hemoglobin Concent 33 g/dL (31-37) Red Cell Distribution Width 14.1 % (11.5-14.5) Platelet Count 249 x10^3/uL (140-400) Neutrophils (%) (Auto) 29 % (31-73) Lymphocytes (%) (Auto) 61 % (24-48) Monocytes (%) (Auto) 8 % (0-9) Eosinophils (%) (Auto) 1 % (0-3) Basophils (%) (Auto) 1 % (0-3) Neutrophils # (Auto) 3.4 x10^3/uL (1.8-7.7) Lymphocytes # (Auto) 7.0 x10^3/uL (1.0-4.8) Monocytes # (Auto) 0.9 x10^3/uL (0.0-1.1) Eosinophils # (Auto) 0.2 x10^3/uL (0.0-0.7) Basophils # (Auto) 0.1 x10^3/uL (0.0-0.2) Segmented Neutrophils % 36 % (35-66) Lymphocytes % 52 % (24-48) Atypical Lymphocytes % (Manual) 8 % (0-0) Monocytes % 4 % (0-10) Platelet Estimate Adequate (ADEQUATE) Giant Platelets Occ Prothrombin Time 13.7 SEC (11.7-14.0) Prothromb Time International Ratio 1.1 (0.8-1.1) Activated Partial Thromboplast Time 28 SEC (24-38) Sodium Level 138 mmol/L (136-145) Potassium Level 3.7 mmol/L (3.5-5.1) Chloride Level 101 mmol/L (98-107) Carbon Dioxide Level 13 mmol/L (21-32) Anion Gap 24 (6-14) Blood Urea Nitrogen 21 mg/dL (8-26) Creatinine 1.5 mg/dL (0.7-1.3) Estimated GFR (Cockcroft-Gault) 66.0 BUN/Creatinine Ratio 14 (6-20) Glucose Level 160 mg/dL (70-99) Calcium Level 9.6 mg/dL (8.5-10.1) Magnesium Level 1.8 mg/dL (1.8-2.4) Total Bilirubin 0.5 mg/dL (0.2-1.0) Aspartate Amino Transf (AST/SGOT) 19 U/L (15-37) Alanine Aminotransferase (ALT/SGPT) 13 U/L (16-63) Alkaline Phosphatase 71 U/L (46-116) Creatine Kinase 261 U/L (39-308) Creatine Kinase MB (Mass) 3.3 ng/mL (0.0-3.6) Creatine Kinase MB Relative Index 1.3 % (0-4) Troponin I Quantitative < 0.017 ng/mL (0.000-0.055) Total Protein 8.0 g/dL (6.4-8.2) Albumin 4.1 g/dL (3.4-5.0) Albumin/Globulin Ratio 1.1 (1.0-1.7) Ethyl Alcohol Level < 10 mg/dL (0-10) Urine Collection Type Unknown Urine Color Yellow Urine Clarity Clear Urine pH 5.0 Urine Specific [place] 1.015 Urine Protein 30 mg/dL (NEG-TRACE) Urine Glucose (UA) Negative mg/dL (NEG) Urine Ketones (Stick) Negative mg/dL (NEG) Urine Blood Moderate (NEG) Urine Nitrite Negative (NEG) Urine Bilirubin Negative (NEG) Urine Urobilinogen Dipstick 0.2 mg/dL (0.2 mg/dL) Urine Leukocyte Esterase Negative (NEG) Urine RBC Occ /HPF (0-2) Urine WBC Occ /HPF (0-4) Urine Squamous Epithelial Cells Occ /LPF Urine Bacteria 0 /HPF (0-FEW) Urine Mucus Slight /LPF Urine Opiates Screen Neg (NEG) Urine Methadone Screen Neg (NEG) Urine Barbiturates Neg (NEG) Urine Phencyclidine Screen Neg (NEG) Urine Amphetamine/Methamphetamine Neg (NEG) Urine Benzodiazepines Screen Neg (NEG) Urine Cocaine Screen Neg (NEG) Urine Cannabinoids Screen Pos (NEG) Urine Ethyl Alcohol Neg (NEG) Images Images CT cervical spine without contrast PQRS statement: CT scans at this facility use dose reduction including either automated exposure control, iterative reconstructions, and /or weight based radiation dosing via mA and kV modification when appropriate to reduce radiation dose to as low as reasonably achievable. HISTORY: Fall, seizure, neck pain. FINDINGS: Craniocervical junction intact. No fracture of the cervical spine. 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 Paraspinal tissues and lung apices are unremarkable. IMPRESSION: No acute osseous injury of the cervical spine. Electronically signed by: Satya Leon MD (10/17/2019 5:17 AM) [facility] DICTATED and SIGNED BY: SATYA LEON MD DATE: 10/17/[address] head without contrast. CT cervical spine without contrast. PQRS statement: CT scans at this facility use dose reduction including either automated exposure control, iterative reconstructions, and /or weight based radiation dosing via mA and kV modification when appropriate to reduce radiation dose to as low as reasonably achievable. HISTORY: Headache, seizure, fell and hit head. COMPARISON: CT head June 18, 2019. CT head findings: No intracranial hemorrhage, mass, hydrocephalus, extra-axial fluid collections or infarction. Mild mucosal thickening left sphenoid sinus. Orbits, mastoids and bones are unremarkable. IMPRESSION: No acute intracranial CT abnormality. CT cervical spine findings: There is motion artifact by the patient at the skull base and cervical junction and at the C1 and C2 and upper C3 vertebra the extent of which decreases the sensitivity to detect traumatic pathology including fracture. Craniocervical junction remains intact. The lower cervical spine demonstrates intact vertebral height and alignment without a fracture. There is a linear fragment anterior and inferior left C3 transverse process, raising the possibility of a fracture, the sclerotic margins and mild spurring about its margins could indicate that this is chronic. Lung apices and paraspinal tissues are unremarkable. IMPRESSION: Motion degraded exam as described above. There is a small linear sclerotic fragment along the C3 left transverse process which could represent a small fracture fragment, possibly but not definitively chronic. VTE Prophylaxis Ordered VTE Prophylaxis Devices: Yes VTE Pharmacological Prophylaxi: Yes Assessment/Plan Assessment/Plan IMPRESSION: ACUTE SEIZURE No acute intracranial CT abnormality. THC ABUSE PLAN ADMIT SEIZURE PRECAUTIONS NEUROLOGY CONSULT HAWK REN MD Oct 17, 2019 10:03
--- NOTE | 2019-10-17 10:42 | EKG ---
[facility] [address] [place] [id number] Test Date: 2019-10-17 Test Time: 02:50:01 Pat Name: SYDNIE ARENAS Department: Room: Gender: M [employer]: : [id number] Requested By: ESEQUIEL KELLY Order Number: [id number] Reading MD: Measurements Intervals [place] Rate: 90 P: 36 IL: 178 QRS: 70 QRSD: 88 T: 43 QT: 368 QTc: 454 Interpretive Statements SINUS RHYTHM QRS(T) CONTOUR ABNORMALITY CONSIDER ANTEROSEPTAL MYOCARDIAL DAMAGE ST & T ABNORMALITY, CONSIDER RECENT INFERIOR MYOCARDIAL OR PERICARDIAL DAMAGE ABNORMAL ECG RI6.01 No previous ECG available for comparison
[2019-10-17 11:00] VITALS: BP 123/73
[2019-10-17] MEDS ORDERED: ALBUTEROL SULFATE 2.5 MG/3 ML NEBU. NEB PRN (12:45)
[2019-10-17] MEDS ORDERED: LORazepam 0.5 MG TABLET PO PRN (12:45)
[2019-10-17] MEDS ORDERED: 0.9 % SODIUM CHLORIDE 10 ML DISP.SYRIN. IV PRN (12:45)
[2019-10-17] MEDS ORDERED: DOCUSATE SODIUM 100 MG CAPSULE. PO PRN (12:45)
[2019-10-17] MEDS ORDERED: cloNIDine HCL 0.1 MG TABLET PO PRN (12:45)
[2019-10-17] MEDS ORDERED: MAG HYDROX/ALUMINUM HYD/SIMETH 30 ML ORAL.SUSP PO PRN (12:45)
[2019-10-17] MEDS ORDERED: guaiFENesin ORAL 200 MG/10 ML LIQUID. PO PRN (12:45)
[2019-10-17] MEDS ORDERED: ACETAMINOPHEN 325 MG TABLET. PO PRN (12:45)
--- NOTE | 2019-10-17 15:11 | NUR ---
Pt states he would like to leave AMA because he needs to be at work. Paged and updated Dr. Brenner. IV removed. Pt verbalized understanding and signed AMA form.
--- NOTE | 2019-10-17 15:17 | NUR ---
Pt taken out by [employer] and .
--- NOTE | 2019-10-17 16:16 | PDOC2 ---
NEUROLOGY CONSULT Date of Admission Date of Admission DATE: 10/17/19 TIME: 16:07 Reason for Consult Reason for Consult: IMPRESSION: Seizure, provoked by drug. Marijuana use/abuse. RECOMMENDATIONS/PLAN: Dilantin 300 mg HS. FU with PCP. See Psychiatry. Drug abstinence. No driving x 6 months anytime after a seizure or seizure like episode. HISTORY OF THE PRESENT ILLNESS: This is a 33-year-old AA male who was brought here from home by EMS after he was found in the bathroom having a seizure by his girlfriend. Upon arrival to ER, patient was dried heaving, was confused. MS reported that his family said he had history of seizure disorder but he has not taken medication. Keppra was prescribed to him in the past but he stated he never took due to cost. He was seen in the ER of [facility] twice last year for seizure activity but he signed out against medical advice. Past Medical History Seizure. Past Surgical History No major surgery recently. Family History High Cholesterol Social History Smoke: <1 pack per day ALCOHOL: occassional Drugs: Marijuana q2h daily x 10 years. ALLERGY: Unknown MEDICATIONS: Refer to MAR REVIEW OF SYSTEMS: Constitutional: No malnutrition, weight loss, cachexia. Head: No traumatic brain or head injury. Skin: No edema, or rash. Ear: No infection. Eyes: No vision loss or color blindness. Nose: No bleeding or purulent discharges. Hearing: No hearing decrease. Neck: No injury. Cardiac: No GA, or arrhythmia. Pulmonary: No COPD. GI: No GI ulcer, GI bleeding. Urinary/genital: No dysuria, hematuria, incontinence, urinary retention. Endocrinologic: No cousin face, craniofacial dysmorphism. Skeletomuscular: No muscular atrophy, deformity. Neurological: see HP. Psychiatric: Marijuana use/abuse. Otherwise, not -bwzad review of systems. PHYSICAL EXAMINATION: General appearance is in no acute distress. HEENT: Normocephalic and nontraumatic. Eyes, nose, ears, and throat are unremarkable. Neck is supple. No lymphadenopathy. No bruits are heard over the carotid artery. No crepitus. Cardiovascular: S1, S2, regular rate and rhythm. Pulmonary: Clear to auscultation bilaterally. Abdomen: Bowel sounds are positive. Abdomen is soft, nontender, and nondistended. Extremities: No rash, lesions, or edema. No restriction of range of motion NEUROLOGICAL EXAMINATION: Alert Oriented to time, place and person. PERRL. EOMI. CN: no focal findings. Muscle tone: within normal. Muscle strength: 5 DTR: 2 Plantar reflex: Flexor response bilaterally Gait: not examined in bed. Sensory exam: no abnormal findings. No cerebellar signs elicited. F-T-N test fine. Current Medications Current Medications Current Medications Sodium Chloride 1,000 ml @ 1,000 mls/hr 1X ONCE IV Last administered on 10/17at 02:59; Start 10/17/19 at 03:00; Stop 10/17/19 at 03:59; Status DC Lorazepam (Ativan Inj) 1 mg 1X ONCE IVP Last administered on 10/17/19at 02:59; Start 10/17/19 at 03:00; Stop 10/17/19 at 03:01; Status DC Levetiracetam 1000 mg/Dextrose 110 ml @ 440 mls/hr 1X ONCE IV Last administered on 10/17/19at 05:10; Start 10/17/19 at 05:00; Stop 10/17/19 at 05:14; Status DC Ondansetron HCl (Zofran) 4 mg PRN Q8HRS PRN IV NAUSEA/VOMITING 1ST CHOICE Last administered on 10/17/19at 04:50; Start 10/17/19 at 04:30; Stop 10/17/19 at 15:24; Status DC Lorazepam (Ativan Inj) 1 mg 1X ONCE IVP Last administered on 10/17/19at 04:44; Start 10/17/19 at 05:00; Stop 10/17/19 at 05:01; Status DC Sodium Chloride (Normal Saline Flush) 3 ml QSHIFT PRN IV AFTER MEDS AND BLOOD DRAWS; Start 10/17/19 at 12:45; Stop 10/17/19 at 15:24; Status DC Ondansetron HCl (Zofran) 4 mg PRN Q4HRS PRN IV NAUSEA/VOMITING; Start 10/17/19 at 12:45; Stop 10/17/19 at 15:24; Status DC Acetaminophen (Tylenol) 650 mg PRN Q4HRS PRN PO TEMP OVER 100.4F OR MILD PAIN; Start 10/17/19 at 12:45; Stop 10/17/19 at 15:24; Status DC Al Hydroxide/Mg Hydroxide (Mylanta Plus Xs) 30 ml PRN DAILY PRN PO HEARTBURN / GAS; Start 10/17/19 at 12:45; Stop 10/17/19 at 15:24; Status DC Clonidine HCl (Catapres) 0.1 mg PRN Q6HRS PRN PO SBP>160 OR DBP>90; Start 10/17/19 at 12:45; Stop 10/17/19 at 15:24; Status DC Docusate Sodium (Colace) 100 mg PRN BID PRN PO CONSTIPATION; Start 10/17/19 at 12:45; Stop 10/17/19 at 15:24; Status DC Albuterol Sulfate (Ventolin Neb Soln) 2.5 mg PRN Q4HRS PRN NEB SHORTNESS OF BREATH; Start 10/17/19 at 12:45; Stop 10/17/19 at 15:24; Status DC Guaifenesin (Robitussin) 200 mg PRN Q4HRS PRN PO COUGH; Start 10/17/19 at 12:45; Stop 10/17/19 at 15:24; Status DC Lorazepam (Ativan) 0.5 mg PRN Q4HRS PRN PO ANXIETY / AGITATION; Start 10/17/19 at 12:45; Stop 10/17/19 at 15:24; Status DC Lorazepam (Ativan Inj) 2 mg PRN Q4HRS PRN IV ANXIETY / AGITATION; Start 10/17/19 at 12:45; Stop 10/17/19 at 15:24; Status DC Enoxaparin Sodium (Lovenox 40mg Syringe) 40 mg DAILY SQ ; Start 10/18/19 at 09:00; Stop 10/17/19 at 15:24; Status DC Allergies Allergies: Allergies Coded Allergies Type Severity Reaction Last Updated Verified No Known Drug Allergies 03/02/19 No ROS Review of System The patient denies any associated fevers, chills, headache, ear pain, rhinorrhea, sore throat, stiff neck, productive cough, chest pain, shortness of breath, back or flank pain, abdominal pain, nausea, vomiting, diarrhea, constipation, dysuria, rash, numbness, weakness, tingling, incontinence, difficulty ambulating, or diaphoresis. Physical Exam Physical Exam General: Well developed, well nourished, no acute distress, well appearing HEENT: Pupils equally round and reactive to light, EOMI, no discharge, normal conjunctiva Neck: Supple, no nuchal rigidity, no JVD, trachea midline, no tenderness Cardiac: RRR, no murmurs, no gallops, no rubs Chest/Lungs: CTAB, no wheeze, no rhonchi, no crackles Abdomen: soft, non-distended, no guarding, no peritoneal signs, non-tender Back: No tenderness Extremities: no edema, pulses intact, non-tender,capillary refill <3 sec bilateral upper and lower extremities, Neuro: Alert and oriented x 4, no focal deficits, normal speech Vitals Vitals: Vital Signs Date Time Temp Pulse Resp B/P (MAP) Pulse Ox O2 Delivery O2 Flow Rate FiO2 10/17/19 11:21 Room Air 10/17/19 11:00 97.8 63 16 123/73 (90) 95 97.8 10/17/19 02:11 2.0 Labs Labs Laboratory Tests Test 10/17/19 02:31 10/17/19 02:51 White Blood Count 11.5 x10^3/uL (4.0-11.0) Red Blood Count 5.31 x10^6/uL (4.30-5.70) Hemoglobin 15.2 g/dL (13.0-17.5) Hematocrit 46.1 % (39.0-53.0) Mean Corpuscular Volume 87 fL (79-100) Mean Corpuscular Hemoglobin 29 pg (25-35) Mean Corpuscular Hemoglobin Concent 33 g/dL (31-37) Red Cell Distribution Width 14.1 % (11.5-14.5) Platelet Count 249 x10^3/uL (140-400) Neutrophils (%) (Auto) 29 % (31-73) Lymphocytes (%) (Auto) 61 % (24-48) Monocytes (%) (Auto) 8 % (0-9) Eosinophils (%) (Auto) 1 % (0-3) Basophils (%) (Auto) 1 % (0-3) Neutrophils # (Auto) 3.4 x10^3/uL (1.8-7.7) Lymphocytes # (Auto) 7.0 x10^3/uL (1.0-4.8) Monocytes # (Auto) 0.9 x10^3/uL (0.0-1.1) Eosinophils # (Auto) 0.2 x10^3/uL (0.0-0.7) Basophils # (Auto) 0.1 x10^3/uL (0.0-0.2) Segmented Neutrophils % 36 % (35-66) Lymphocytes % 52 % (24-48) Atypical Lymphocytes % (Manual) 8 % (0-0) Monocytes % 4 % (0-10) Platelet Estimate Adequate (ADEQUATE) Giant Platelets Occ Prothrombin Time 13.7 SEC (11.7-14.0) Prothromb Time International Ratio 1.1 (0.8-1.1) Activated Partial Thromboplast Time 28 SEC (24-38) Sodium Level 138 mmol/L (136-145) Potassium Level 3.7 mmol/L (3.5-5.1) Chloride Level 101 mmol/L (98-107) Carbon Dioxide Level 13 mmol/L (21-32) Anion Gap 24 (6-14) Blood Urea Nitrogen 21 mg/dL (8-26) Creatinine 1.5 mg/dL (0.7-1.3) Estimated GFR (Cockcroft-Gault) 66.0 BUN/Creatinine Ratio 14 (6-20) Glucose Level 160 mg/dL (70-99) Calcium Level 9.6 mg/dL (8.5-10.1) Magnesium Level 1.8 mg/dL (1.8-2.4) Total Bilirubin 0.5 mg/dL (0.2-1.0) Aspartate Amino Transf (AST/SGOT) 19 U/L (15-37) Alanine Aminotransferase (ALT/SGPT) 13 U/L (16-63) Alkaline Phosphatase 71 U/L (46-116) Creatine Kinase 261 U/L (39-308) Creatine Kinase MB (Mass) 3.3 ng/mL (0.0-3.6) Creatine Kinase MB Relative Index 1.3 % (0-4) Troponin I Quantitative < 0.017 ng/mL (0.000-0.055) Total Protein 8.0 g/dL (6.4-8.2) Albumin 4.1 g/dL (3.4-5.0) Albumin/Globulin Ratio 1.1 (1.0-1.7) Ethyl Alcohol Level < 10 mg/dL (0-10) Urine Collection Type Unknown Urine Color Yellow Urine Clarity Clear Urine pH 5.0 Urine Specific [place] 1.015 Urine Protein 30 mg/dL (NEG-TRACE) Urine Glucose (UA) Negative mg/dL (NEG) Urine Ketones (Stick) Negative mg/dL (NEG) Urine Blood Moderate (NEG) Urine Nitrite Negative (NEG) Urine Bilirubin Negative (NEG) Urine Urobilinogen Dipstick 0.2 mg/dL (0.2 mg/dL) Urine Leukocyte Esterase Negative (NEG) Urine RBC Occ /HPF (0-2) Urine WBC Occ /HPF (0-4) Urine Squamous Epithelial Cells Occ /LPF Urine Bacteria 0 /HPF (0-FEW) Urine Mucus Slight /LPF Urine Opiates Screen Neg (NEG) Urine Methadone Screen Neg (NEG) Urine Barbiturates Neg (NEG) Urine Phencyclidine Screen Neg (NEG) Urine Amphetamine/Methamphetamine Neg (NEG) Urine Benzodiazepines Screen Neg (NEG) Urine Cocaine Screen Neg (NEG) Urine Cannabinoids Screen Pos (NEG) Urine Ethyl Alcohol Neg (NEG) Laboratory Tests Test 10/17/19 02:31 10/17/19 02:51 White Blood Count 11.5 x10^3/uL (4.0-11.0) Red Blood Count 5.31 x10^6/uL (4.30-5.70) Hemoglobin 15.2 g/dL (13.0-17.5) Hematocrit 46.1 % (39.0-53.0) Mean Corpuscular Volume 87 fL (79-100) Mean Corpuscular Hemoglobin 29 pg (25-35) Mean Corpuscular Hemoglobin Concent 33 g/dL (31-37) Red Cell Distribution Width 14.1 % (11.5-14.5) Platelet Count 249 x10^3/uL (140-400) Neutrophils (%) (Auto) 29 % (31-73) Lymphocytes (%) (Auto) 61 % (24-48) Monocytes (%) (Auto) 8 % (0-9) Eosinophils (%) (Auto) 1 % (0-3) Basophils (%) (Auto) 1 % (0-3) Neutrophils # (Auto) 3.4 x10^3/uL (1.8-7.7) Lymphocytes # (Auto) 7.0 x10^3/uL (1.0-4.8) Monocytes # (Auto) 0.9 x10^3/uL (0.0-1.1) Eosinophils # (Auto) 0.2 x10^3/uL (0.0-0.7) Basophils # (Auto) 0.1 x10^3/uL (0.0-0.2) Segmented Neutrophils % 36 % (35-66) Lymphocytes % 52 % (24-48) Atypical Lymphocytes % (Manual) 8 % (0-0) Monocytes % 4 % (0-10) Platelet Estimate Adequate (ADEQUATE) Giant Platelets Occ Prothrombin Time 13.7 SEC (11.7-14.0) Prothromb Time International Ratio 1.1 (0.8-1.1) Activated Partial Thromboplast Time 28 SEC (24-38) Sodium Level 138 mmol/L (136-145) Potassium Level 3.7 mmol/L (3.5-5.1) Chloride Level 101 mmol/L (98-107) Carbon Dioxide Level 13 mmol/L (21-32) Anion Gap 24 (6-14) Blood Urea Nitrogen 21 mg/dL (8-26) Creatinine 1.5 mg/dL (0.7-1.3) Estimated GFR (Cockcroft-Gault) 66.0 BUN/Creatinine Ratio 14 (6-20) Glucose Level 160 mg/dL (70-99) Calcium Level 9.6 mg/dL (8.5-10.1) Magnesium Level 1.8 mg/dL (1.8-2.4) Total Bilirubin 0.5 mg/dL (0.2-1.0) Aspartate Amino Transf (AST/SGOT) 19 U/L (15-37) Alanine Aminotransferase (ALT/SGPT) 13 U/L (16-63) Alkaline Phosphatase 71 U/L (46-116) Creatine Kinase 261 U/L (39-308) Creatine Kinase MB (Mass) 3.3 ng/mL (0.0-3.6) Creatine Kinase MB Relative Index 1.3 % (0-4) Troponin I Quantitative < 0.017 ng/mL (0.000-0.055) Total Protein 8.0 g/dL (6.4-8.2) Albumin 4.1 g/dL (3.4-5.0) Albumin/Globulin Ratio 1.1 (1.0-1.7) Ethyl Alcohol Level < 10 mg/dL (0-10) Urine Collection Type Unknown Urine Color Yellow Urine Clarity Clear Urine pH 5.0 Urine Specific [place] 1.015 Urine Protein 30 mg/dL (NEG-TRACE) Urine Glucose (UA) Negative mg/dL (NEG) Urine Ketones (Stick) Negative mg/dL (NEG) Urine Blood Moderate (NEG) Urine Nitrite Negative (NEG) Urine Bilirubin Negative (NEG) Urine Urobilinogen Dipstick 0.2 mg/dL (0.2 mg/dL) Urine Leukocyte Esterase Negative (NEG) Urine RBC Occ /HPF (0-2) Urine WBC Occ /HPF (0-4) Urine Squamous Epithelial Cells Occ /LPF Urine Bacteria 0 /HPF (0-FEW) Urine Mucus Slight /LPF Urine Opiates Screen Neg (NEG) Urine Methadone Screen Neg (NEG) Urine Barbiturates Neg (NEG) Urine Phencyclidine Screen Neg (NEG) Urine Amphetamine/Methamphetamine Neg (NEG) Urine Benzodiazepines Screen Neg (NEG) Urine Cocaine Screen Neg (NEG) Urine Cannabinoids Screen Pos (NEG) Urine Ethyl Alcohol Neg (NEG) GANGA BE MD Oct 17, 2019 16:16
[2019-10-18] MEDS ORDERED: ENOXAPARIN 40 MG/0.4 ML SYRINGE. SQ SCH (09:00)
== END 2019-10-17 15:24 | disposition home or self-care (01) ==
LOC: ER 02:11 → 4 NORTH 04:42
PROVIDERS: ADMIT Family Medicine; ATTEND Family Medicine
DX: R56.9 Unspecified convulsions (principal); F17.210 Nicotine dependence, cigarettes, uncomplicated
CPT/HCPCS: 36415; 70450; 72125; 80053; 80307; 81001; 82553; 83735; 84484; 85007; 85025; 85610; 85730; 93005; 96361; 96374; 96375; 96376; 99284; G0378; G0379; G0480; J1953; J2060; J2405; J7030

== ENCOUNTER 2020-02-25 11:48 | Emergency (ER) | payer SELFPAY ==
[~2020-02-25] VITALS: Ht 165.1 cm; Wt 68.1 kg
[2020-02-25] MEDS ORDERED: levETIRAcetam 1,000 MG in IV DEXTROSE 5% 100ML 100 ML IV ONE (12:45)
[2020-02-25] MEDS ORDERED: IV NORMAL SALINE 1000ML BAG 1,000 ML IV ONE (12:45)
[2020-02-25 12:49] LABS: BASO # 0.1 x10^3/uL (0.0-0.2); BASO % 1 % (0-3); EOS % 0 % (0-3); HEMATOCRIT 50.1 % (39.0-53.0); HEMOGLOBIN 16.2 g/dL (13.0-17.5); LYMPH # 3.1 x10^3/uL (1.0-4.8); LYMPH % 31 % (24-48); MEAN CORPUSCULAR HEMOGLOBIN 29 pg (25-35); MEAN CORPUSCULAR HGB CONC 32 g/dL (31-37); MEAN CORPUSCULAR VOLUME 88 fL (79-100); MONO # 0.9 x10^3/uL (0.0-1.1); MONO % 9 % (0-9); NEUT # 6.1 x10^3/uL (1.8-7.7); NEUT % 60 % (31-73); PLATELET COUNT 265 x10^3/uL (140-400); RED BLOOD COUNT 5.68 x10^6/uL (4.30-5.70); RED CELL DISTRIBUTION WIDTH 14.4 % (11.5-14.5); WHITE BLOOD COUNT 10.3 x10^3/uL (4.0-11.0)
[2020-02-25 13:00] LABS: CALCIUM 9.3 mg/dL (8.5-10.1); CREATININE 1.4 mg/dL (0.7-1.3); GFR 71.1; POTASSIUM 3.9 mmol/L (3.5-5.1)
[2020-02-25 13:05] LABS: ALBUMIN 4.2 g/dL (3.4-5.0); ALBUMIN/GLOBULIN RATIO 0.9 (1.0-1.7); TOTAL BILIRUBIN 0.6 mg/dL (0.2-1.0)
--- NOTE | 2020-02-25 13:08 | RAD ---
CHEST AP ONLY 02/25/2020 12:39 PM INDICATION: Cough COMPARISON: 06/18/2019 TECHNIQUE: Portable frontal view of the chest is provided. FINDINGS: The cardiomediastinal silhouette is within normal limits. Lungs are clear. There are no significant pleural effusions. There is no pulmonary vascular congestion. No pneumothorax. No suspicious osseous abnormality. IMPRESSION: There is no acute cardiopulmonary process. Electronically signed by: Kadie Wynne MD (02/25/2020 1:06 PM) [facility]
--- NOTE | 2020-02-25 13:14 | PHYS DOC ---
Past Medical History Past Medical History: Seizure Past Surgical History: No Surgical History Smoking Status: Current Every Day Smoker Additional Information: 3 CIGARETTES A DAY Alcohol Use: Occasionally Drug Use: None General Adult EDM: Chief Complaint: SEIZURE HPI: HPI: Patient is a 34 year old male with history of seizures who presents to the ED today to be evaluated after having a seizure at home he states the seizure lasted 2 minutes but no one witnessed it he woke up with urine incontinence. Patient reports not being on any seizure medications. He also arrives in the ED coughing and hacking. Review of Systems: Review of Systems: Constitutional: Denies fever or chills. [] Eyes: Denies change in visual acuity. [] HENT: Denies nasal congestion or sore throat. [] Respiratory: reports cough denies shortness of breath. [] Cardiovascular: Denies chest pain or edema. [] GI: Denies abdominal pain, nausea, vomiting, bloody stools or diarrhea. [] : Denies dysuria. [] Musculoskeletal: Denies back pain or joint pain. [] Integument: Denies rash. [] Neurologic: Reports seizure, denies focal weakness or sensory changes. [] Psychiatric: Denies depression or anxiety. [] Heart Score: Risk Factors: Risk Factors: DM, Current or recent (<one month) smoker, HTN, HLP, family history of CAD, obesity. Risk Scores: Score 0 - 3: 2.5% MACE over next 6 weeks - Discharge Home Score 4 - 6: 20.3% MACE over next 6 weeks - Admit for Clinical Observation Score 7 - 10: 72.7% MACE over next 6 weeks - Early Invasive Strategies Current Medications: Current Medications Medications (Trade) Dose Ordered Sig/Zaid Start Time Stop Time Status Last Admin Dose Admin Levetiracetam 1000 mg/Dextrose 110 ml @ 440 mls/hr 1X ONCE 02/25/20 12:45 02/25/20 12:59 DC 02/25/20 13:00 440 MLS/HR Sodium Chloride 1,000 ml @ 1,000 mls/hr 1X ONCE 02/25/20 12:45 02/25/20 13:44 02/25/20 11:59 1,000 MLS/HR Allergies: Allergies: Allergies Coded Allergies Type Severity Reaction Last Updated Verified No Known Drug Allergies 03/02/19 No Physical Exam: PE: Constitutional: Well developed, well nourished, no acute distress, non-toxic appearance. [] HENT: Normocephalic, atraumatic, bilateral external ears normal, oropharynx moist, no oral exudates, nose normal. [] Eyes: PERRLA, EOMI, conjunctiva normal, no discharge. [] Neck: Normal range of motion, no tenderness, supple, no stridor. [] Cardiovascular:Heart rate regular rhythm, no murmur [] Lungs & Thorax: Bilateral breath sounds clear to auscultation [] Abdomen: Bowel sounds normal, soft, no tenderness, no masses, no pulsatile masses. [] Skin: Warm, dry, no erythema, no rash. [] Back: No tenderness, no CVA tenderness. [] Extremities: No tenderness, no cyanosis, no clubbing, ROM intact, no edema. [] Neurologic: Alert and oriented X 3, normal motor function, normal sensory function, no focal deficits noted. [] Psychologic: Affect normal, judgement normal, mood normal. [] Current Patient Data: Labs: Laboratory Tests Test 02/25/20 11:55 White Blood Count 10.3 x10^3/uL (4.0-11.0) Red Blood Count 5.68 x10^6/uL (4.30-5.70) Hemoglobin 16.2 g/dL (13.0-17.5) Hematocrit 50.1 % (39.0-53.0) Mean Corpuscular Volume 88 fL (79-100) Mean Corpuscular Hemoglobin 29 pg (25-35) Mean Corpuscular Hemoglobin Concent 32 g/dL (31-37) Red Cell Distribution Width 14.4 % (11.5-14.5) Platelet Count 265 x10^3/uL (140-400) Neutrophils (%) (Auto) 60 % (31-73) Lymphocytes (%) (Auto) 31 % (24-48) Monocytes (%) (Auto) 9 % (0-9) Eosinophils (%) (Auto) 0 % (0-3) Basophils (%) (Auto) 1 % (0-3) Neutrophils # (Auto) 6.1 x10^3/uL (1.8-7.7) Lymphocytes # (Auto) 3.1 x10^3/uL (1.0-4.8) Monocytes # (Auto) 0.9 x10^3/uL (0.0-1.1) Eosinophils # (Auto) 0.0 x10^3/uL (0.0-0.7) Basophils # (Auto) 0.1 x10^3/uL (0.0-0.2) Sodium Level 137 mmol/L (136-145) Potassium Level 3.9 mmol/L (3.5-5.1) Chloride Level 100 mmol/L (98-107) Carbon Dioxide Level 13 mmol/L (21-32) L Anion Gap 24 (6-14) H Blood Urea Nitrogen 12 mg/dL (8-26) Creatinine 1.4 mg/dL (0.7-1.3) H Estimated GFR (Cockcroft-Gault) 71.1 BUN/Creatinine Ratio 9 (6-20) Glucose Level 129 mg/dL (70-99) H Calcium Level 9.3 mg/dL (8.5-10.1) Total Bilirubin Pending Aspartate Amino Transferase (AST) Pending Alanine Aminotransferase (ALT) Pending Alkaline Phosphatase Pending Total Protein Pending Albumin Pending Albumin/Globulin Ratio Pending Ethyl Alcohol Level < 10 mg/dL (0-10) Laboratory Tests 02/25/20 11:55 Laboratory Tests 02/25/20 11:55 Vital Signs: Vital Signs Date Time Temp Pulse Resp B/P (MAP) Pulse Ox O2 Delivery O2 Flow Rate FiO2 02/25/20 11:48 98.2 122 20 141/81 (101) 96 Room Air 98.2 EKG: EKG: [] Radiology/Procedures: Radiology/Procedures: [] Course & Med Decision Making: Course & Med Decision Making Pertinent Labs and Imaging studies reviewed. (See chart for details) This is a 34 year old male presenting for seizure that occurred at home hx of seizures but not on medication. Also noted for coughing. chest xray is negative. Labs are negative for any acute findings, given Keppra in the ED. Discharged with the same. Educated patient on the importance of compliance with seizure medications. He has been given prescriptions for Keppra before apparently when he runs out he never goes to see any neurologist. Dragon Disclaimer: Dragon Disclaimer: This electronic medical record was generated, in whole or in part, using a voice recognition dictation system. Departure Departure Impression: Primary Impression: Seizure Additional Impression: Cough Disposition: HOME, SELF-CARE Condition: STABLE Referrals: NO PCP (PCP) ALVARO BELLAMY MD follow up in 1 week Patient Instructions: Seizure, Adult Additional Instructions: You were evaluated in the emergency room after having a seizure. Please follow- up with the neurologist provided, take the prescribed seizure medicines as ordered. Scripts Levetiracetam (KEPPRA) 500 Mg Tablet 1 TAB PO BID, #30 TAB 0 Refills Prov: JAIMEE REINA APRN 02/25/20 JAIMEE REINA APRN February 25, 2020 13:14
[2020-02-25] MEDS ORDERED: LEVE500T56 PO (14:50)
[2020-02-25 15:00] VITALS: BP 130/62
== END 2020-02-25 15:30 | disposition home or self-care (01) ==
LOC: ER 11:48
DX: R56.9 Unspecified convulsions (principal); R05 Cough; R32 Unspecified urinary incontinence; F17.210 Nicotine dependence, cigarettes, uncomplicated
CPT/HCPCS: 36415; 71045; 80053; 85025; 96365; 99285; G0480; J1953; J7030; J7060

== ENCOUNTER 2020-04-09 09:25 | Emergency (ER) | payer SELFPAY ==
[~2020-04-09] VITALS: Ht 167.6 cm; Wt 68.1 kg
[~2020-04-09 09:25] MED LIST: LEVE500T56 PO
[2020-04-09] MEDS ORDERED: IV NORMAL SALINE 1000ML BAG 1,000 ML IV ONE (10:00)
[2020-04-09 10:22] LABS: CALCIUM 8.5 mg/dL (8.5-10.1); CREATININE 1.3 mg/dL (0.7-1.3); GFR 77.4; POTASSIUM 4.4 mmol/L (3.5-5.1)
[2020-04-09 10:25] LABS: BASO % 1 % (0-3); EOS % 1 % (0-3); HEMATOCRIT 44.9 % (39.0-53.0); HEMOGLOBIN 15.4 g/dL (13.0-17.5); LYMPH # 2.6 x10^3/uL (1.0-4.8); LYMPH % 40 % (24-48); MEAN CORPUSCULAR HEMOGLOBIN 30 pg (25-35); MEAN CORPUSCULAR HGB CONC 34 g/dL (31-37); MEAN CORPUSCULAR VOLUME 87 fL (79-100); MONO # 0.5 x10^3/uL (0.0-1.1); MONO % 8 % (0-9); NEUT # 3.3 x10^3/uL (1.8-7.7); NEUT % 51 % (31-73); PLATELET COUNT 229 x10^3/uL (140-400); RED BLOOD COUNT 5.19 x10^6/uL (4.30-5.70); RED CELL DISTRIBUTION WIDTH 14.2 % (11.5-14.5); WHITE BLOOD COUNT 6.4 x10^3/uL (4.0-11.0)
[2020-04-09 10:27] LABS: ALBUMIN 3.7 g/dL (3.4-5.0); ALBUMIN/GLOBULIN RATIO 1.2 (1.0-1.7); TOTAL BILIRUBIN 0.5 mg/dL (0.2-1.0); TOTAL PROTEIN 6.9 g/dL (6.4-8.2)
[2020-04-09] MEDS ORDERED: levETIRAcetam 1,000 MG in IV DEXTROSE 5% 100ML 100 ML IV ONE (10:45)
--- NOTE | 2020-04-09 11:38 | PHYS DOC ---
Past Medical History Past Medical History: Seizure Past Surgical History: No Surgical History Smoking Status: Current Every Day Smoker Alcohol Use: None Drug Use: None General Adult EDM: Chief Complaint: SEIZURE HPI: HPI: Patient is a 34 year old male presents to the ED with a chief complaint of seizure. Patient states that he has a history of seizure disorder and is prescribed Keppra. Patient states that he does not take Keppra for the last 2 weeks because he found that the pills are too big. Patient denies any injuries. Patient denies fever, chills, nausea, vomiting, diarrhea, dysuria, chest pain, shortness of breath... Review of Systems: Review of Systems: Constitutional: Denies fever or chills. [] Eyes: Denies change in visual acuity. [] HENT: Denies nasal congestion or sore throat. [] Respiratory: Denies cough or shortness of breath. [] Cardiovascular: Denies chest pain or edema. [] GI: Denies abdominal pain, nausea, vomiting, bloody stools or diarrhea. [] : Denies dysuria. [] Neurologic: Complains of seizure Heart Score: Risk Factors: Risk Factors: DM, Current or recent (<one month) smoker, HTN, HLP, family history of CAD, obesity. Risk Scores: Score 0 - 3: 2.5% MACE over next 6 weeks - Discharge Home Score 4 - 6: 20.3% MACE over next 6 weeks - Admit for Clinical Observation Score 7 - 10: 72.7% MACE over next 6 weeks - Early Invasive Strategies Current Medications: Current Medications Medications (Trade) Dose Ordered Sig/[facility] Start Time Stop Time Status Last Admin Dose Admin Levetiracetam 1000 mg/Dextrose 110 ml @ 440 mls/hr 1X ONCE 04/09/20 10:45 04/09/20 10:59 DC Sodium Chloride 1,000 ml @ 1,000 mls/hr 1X ONCE 04/09/20 10:00 04/09/20 10:59 DC 04/09/20 10:25 1,000 MLS/HR Allergies: Allergies: Allergies Coded Allergies Type Severity Reaction Last Updated Verified No Known Drug Allergies 03/02/19 No Physical Exam: PE: Constitutional: Well developed, well nourished, no acute distress, non-toxic appearance. [] HENT: Normocephalic, atraumatic Eyes: EOMI Neck: Normal range of motion, Supple Cardiovascular:Heart rate regular rhythm Lungs & Thorax: Bilateral breath sounds clear to auscultation [] Abdomen: Bowel sounds normal, soft, no tenderness Extremities: No tenderness, ROM intact Neurologic: Alert and oriented X 3, no focal neuro deficits on exam Current Patient Data: Labs: Laboratory Tests Test 04/09/20 09:35 White Blood Count 6.4 x10^3/uL (4.0-11.0) Red Blood Count 5.19 x10^6/uL (4.30-5.70) Hemoglobin 15.4 g/dL (13.0-17.5) Hematocrit 44.9 % (39.0-53.0) Mean Corpuscular Volume 87 fL (79-100) Mean Corpuscular Hemoglobin 30 pg (25-35) Mean Corpuscular Hemoglobin Concent 34 g/dL (31-37) Red Cell Distribution Width 14.2 % (11.5-14.5) Platelet Count 229 x10^3/uL (140-400) Neutrophils (%) (Auto) 51 % (31-73) Lymphocytes (%) (Auto) 40 % (24-48) Monocytes (%) (Auto) 8 % (0-9) Eosinophils (%) (Auto) 1 % (0-3) Basophils (%) (Auto) 1 % (0-3) Neutrophils # (Auto) 3.3 x10^3/uL (1.8-7.7) Lymphocytes # (Auto) 2.6 x10^3/uL (1.0-4.8) Monocytes # (Auto) 0.5 x10^3/uL (0.0-1.1) Eosinophils # (Auto) 0.0 x10^3/uL (0.0-0.7) Basophils # (Auto) 0.0 x10^3/uL (0.0-0.2) Sodium Level 139 mmol/L (136-145) Potassium Level 4.4 mmol/L (3.5-5.1) Chloride Level 103 mmol/L (98-107) Carbon Dioxide Level 20 mmol/L (21-32) L Anion Gap 16 (6-14) H Blood Urea Nitrogen 10 mg/dL (8-26) Creatinine 1.3 mg/dL (0.7-1.3) Estimated GFR (Cockcroft-Gault) 77.4 BUN/Creatinine Ratio 8 (6-20) Glucose Level 105 mg/dL (70-99) H Calcium Level 8.5 mg/dL (8.5-10.1) Total Bilirubin 0.5 mg/dL (0.2-1.0) Aspartate Amino Transferase (AST) 18 U/L (15-37) Alanine Aminotransferase (ALT) 15 U/L (16-63) L Alkaline Phosphatase 69 U/L (46-116) Total Protein 6.9 g/dL (6.4-8.2) Albumin 3.7 g/dL (3.4-5.0) Albumin/Globulin Ratio 1.2 (1.0-1.7) Laboratory Tests 04/09/20 09:35 Laboratory Tests 04/09/20 09:35 Vital Signs: Vital Signs Date Time Temp Pulse Resp B/P (MAP) Pulse Ox O2 Delivery O2 Flow Rate FiO2 04/09/20 09:40 98.4 99 20 112/87 (95) 86 Room Air 98.4 EKG: EKG: [] Radiology/Procedures: Radiology/Procedures: [] Course & Med Decision Making: Course & Med Decision Making Pertinent Labs reviewed. (See chart for details) Ordered labs, IV fluids, Keppra 1000 mg IV Patient is alert and oriented x3 with no focal neuro deficits on exam. Labs are within normal limits. Patient states that he will try to break the Keppra tablet and take it at home. Discussed results and plan of care with patient. Patient is instructed to follow up with PCP in one to 2 days. Appropriate discharge instructions given to patient to return to the ED or to seek immediate medical evaluation. Patient is instructed to return to the ED if symptoms worsen or if any concerns. Dragon Disclaimer: Dragon Disclaimer: This electronic medical record was generated, in whole or in part, using a voice recognition dictation system. Departure Departure Impression: Primary Impression: Seizure Additional Impression: Non compliance with medical treatment Referrals: NO PCP (PCP) Patient Instructions: Seizure, Adult Additional Instructions: Discussed results and plan of care with patient. Patient is instructed to follow up with PCP in one to 2 days. Appropriate discharge instructions given to patient to return to the ED or to seek immediate medical evaluation. Patient is instructed to return to the ED if symptoms worsen or if any concerns. Justicifation of Admission Dx: Justifications for Admission: Justification of Admission Dx: SHANICE Romeo DO Apr 09, 2020 11:38
[2020-04-09 12:00] VITALS: BP 114/82
== END 2020-04-09 12:07 | disposition home or self-care (01) ==
LOC: ER 09:25
DX: G40.909 Epilepsy, unspecified, not intractable, without status epilepticus (principal); F17.200 Nicotine dependence, unspecified, uncomplicated
CPT/HCPCS: 36415; 80053; 85025; 96365; 99284; J1953; J7030; J7060

== ENCOUNTER 2020-04-23 09:22 | Emergency (ER) | payer SELFPAY ==
[~2020-04-23] VITALS: Ht 165.1 cm; Wt 81.0 kg
[2020-04-23] MEDS ORDERED: IV NORMAL SALINE 1000ML BAG 1,000 ML IV ONE (09:30)
[2020-04-23] MEDS ORDERED: FAMOTIDINE 20 MG/2 ML VIAL IVP ONE (10:00)
[2020-04-23] MEDS ORDERED: ONDANSETRON PF 4 MG/2 ML VIAL. IVP ONE (10:00)
--- NOTE | 2020-04-23 10:18 | RAD ---
CT HEAD AND CERVICAL SPINE WO dated 04/23/2020 9:30 AM. Comparison: None. Clinical Indication: Reason: seizure, pain / Spl. Instructions: / History: . Technical factors: Contiguous 5 mm axial images of the head were obtained from the skullbase to the vertex. No contrast was administered. In addition, 3 mm axial images of the cervical spine were acquired with thin cut coronal and sagittal reconstructions. One or more of the following individualized dose reduction techniques were utilized for this examination: 1. Automated exposure control 2. Adjustment of the mA and/or kV according to patient size 3. Use of iterative reconstruction technique Findings head: Ventricles and sulci are within normal limits for age. No evidence of ventricular shift or mass effect. Brain parenchyma is of normal attenuation. There is no evidence of hemorrhage or extra-axial collection. Mucous retention cyst or soft tissue thickening of the left sphenoid sinus. The paranasal sinuses and mastoid air cells are otherwise clear. IMPRESSION HEAD: No evidence of acute intracranial abnormality. Findings cervical spine: Images were acquired from the skull base to T2. There is straightening of the normal cervical lordosis, otherwise sagittal alignment is anatomic. Vertebral body heights are maintained. No prevertebral soft tissue swelling. Posterior elements are intact. No fractures are identified. No significant spondylotic changes. No apparent focal disc herniation. The bony canal and foramen are adequate. Visually soft tissue structures are unremarkable. Limited images of lung apices are clear. IMPRESSION CERVICAL SPINE: No evidence of fracture or malalignment. Electronically signed by: Warner Childress MD (04/23/2020 10:15 AM) [id number]
--- NOTE | 2020-04-23 10:21 | RAD ---
CT chest without contrast dated 04/23/2020. No comparison available. CLINICAL INDICATION: Cough. Technique: Contiguous axial imaging the chest performed without the administration of intravenous contrast. One or more of the following individualized dose reduction techniques were utilized for this examination: 1. Automated exposure control 2. Adjustment of the mA and/or kV according to patient size 3. Use of iterative reconstruction technique FINDINGS: Central airways are patent. Mild diffuse bronchial wall thickening. Prominent reticular nodular markings throughout both lungs with diffuse groundglass opacity. There is more confluent opacification in the superior segment lower lobes bilaterally. No pneumothorax. No significant pleural effusion. Heart size within normal limits. No pericardial effusion. No mediastinal, hilar or axillary lymphadenopathy. There are calcified prevascular lymph nodes. Thyroid gland is unremarkable. Limited images of the upper abdomen are unremarkable. No acute bony abnormality. IMPRESSION: 1. Bilateral airspace disease consistent with pneumonia. Consider atypical infection or viral pneumonitis. Aspiration pneumonia is another consideration. Electronically signed by: Warner Childress MD (04/23/2020 10:19 AM) [id number]
--- NOTE | 2020-04-23 10:31 | PHYS DOC ---
Past Medical History Past Medical History: Seizure Additional Past Medical Histor: NON-COMPLIANT Past Surgical History: No Surgical History Smoking Status: Current Every Day Smoker Alcohol Use: None Additional Information: FORMER ETOH, APPROX 4 MONTHS AGO. Drug Use: None General Adult EDM: Chief Complaint: SEIZURE HPI: HPI: Patient is a 34 year old [f__sex] who presents with [] Review of Systems: Review of Systems: Constitutional: Denies fever or chills. [] Eyes: Denies change in visual acuity. [] HENT: Denies nasal congestion or sore throat. [] Respiratory: Denies cough or shortness of breath. [] Cardiovascular: Denies chest pain or edema. [] GI: Denies abdominal pain, nausea, vomiting, bloody stools or diarrhea. [] : Denies dysuria. [] Musculoskeletal: Denies back pain or joint pain. [] Integument: Denies rash. [] Neurologic: Denies headache, focal weakness or sensory changes. [] Endocrine: Denies polyuria or polydipsia. [] Lymphatic: Denies swollen glands. [] Psychiatric: Denies depression or anxiety. [] Heart Score: Risk Factors: Risk Factors: DM, Current or recent (<one month) smoker, HTN, HLP, family history of CAD, obesity. Risk Scores: Score 0 - 3: 2.5% MACE over next 6 weeks - Discharge Home Score 4 - 6: 20.3% MACE over next 6 weeks - Admit for Clinical Observation Score 7 - 10: 72.7% MACE over next 6 weeks - Early Invasive Strategies Current Medications: Current Medications Medications (Trade) Dose Ordered Sig/[facility] Start Time Stop Time Status Last Admin Dose Admin Famotidine (Pepcid Vial) 20 mg 1X ONCE 04/23/20 10:00 04/23/20 10:01 DC 04/23/20 10:27 20 MG Ondansetron HCl (Zofran) 4 mg 1X ONCE 04/23/20 10:00 04/23/20 10:01 DC 04/23/20 10:26 4 MG Sodium Chloride 1,000 ml @ 1,000 mls/hr 1X ONCE 04/23/20 09:30 04/23/20 10:29 DC 04/23/20 10:25 1,000 MLS/HR Allergies: Allergies: Allergies Coded Allergies Type Severity Reaction Last Updated Verified No Known Drug Allergies 03/02/19 No Physical Exam: PE: Constitutional: Well developed, well nourished, no acute distress, non-toxic appearance. [] HENT: Normocephalic, atraumatic, bilateral external ears normal, oropharynx moist, no oral exudates, nose normal. [] Eyes: PERRLA, EOMI, conjunctiva normal, no discharge. [] Neck: Normal range of motion, no tenderness, supple, no stridor. [] Cardiovascular:Heart rate regular rhythm, no murmur [] Lungs & Thorax: Bilateral breath sounds clear to auscultation [] Abdomen: Bowel sounds normal, soft, no tenderness, no masses, no pulsatile masses. [] Skin: Warm, dry, no erythema, no rash. [] Back: No tenderness, no CVA tenderness. [] Extremities: No tenderness, no cyanosis, no clubbing, ROM intact, no edema. [] Neurologic: Alert and oriented X 3, normal motor function, normal sensory function, no focal deficits noted. [] Psychologic: Affect normal, judgement normal, mood normal. [] Current Patient Data: Vital Signs: Vital Signs Date Time Temp Pulse Resp B/P (MAP) Pulse Ox O2 Delivery O2 Flow Rate FiO2 04/23/20 09:25 98.5 115 32 147/71 (96) 88 Room Air 98.5 EKG: EKG: @0939 NSR at 100bpm, NO ST elevation, QRS 84ms, QT/QTc 336/436ms Radiology/Procedures: Radiology/Procedures: PROCEDURE: CT HEAD AND CERVICAL SPINE WO CT HEAD AND CERVICAL SPINE WO dated 04/23/2020 9:30 AM. Comparison: None. Clinical Indication: Reason: seizure, pain / Spl. Instructions: / History: . Technical factors: Contiguous 5 mm axial images of the head were obtained from the skullbase to the vertex. No contrast was administered. In addition, 3 mm axial images of the cervical spine were acquired with thin cut coronal and sagittal reconstructions. One or more of the following individualized dose reduction techniques were utilized for this examination: 1. Automated exposure control 2. Adjustment of the mA and/or kV according to patient size 3. Use of iterative reconstruction technique Findings head: Ventricles and sulci are within normal limits for age. No evidence of ventricular shift or mass effect. Brain parenchyma is of normal attenuation. There is no evidence of hemorrhage or extra-axial collection. Mucous retention cyst or soft tissue thickening of the left sphenoid sinus. The paranasal sinuses and mastoid air cells are otherwise clear. IMPRESSION HEAD: No evidence of acute intracranial abnormality. Findings cervical spine: Images were acquired from the skull base to T2. There is straightening of the normal cervical lordosis, otherwise sagittal alignment is anatomic. Vertebral body heights are maintained. No prevertebral soft tissue swelling. Posterior elements are intact. No fractures are identified. No significant spondylotic changes. No apparent focal disc herniation. The bony canal and foramen are adequate. Visually soft tissue structures are unremarkable. Limited images of lung apices are clear. IMPRESSION CERVICAL SPINE: No evidence of fracture or malalignment. Electronically signed by: Warenr Childress MD (04/23/2020 10:15 AM) [id number] PROCEDURE: CT CHEST WO CONTRAST CT chest without contrast dated 04/23/2020. No comparison available. CLINICAL INDICATION: Cough. Technique: Contiguous axial imaging the chest performed without the administration of intravenous contrast. One or more of the following individualized dose reduction techniques were utilized for this examination: 1. Automated exposure control 2. Adjustment of the mA and/or kV according to patient size 3. Use of iterative reconstruction technique FINDINGS: Central airways are patent. Mild diffuse bronchial wall thickening. Prominent reticular nodular markings throughout both lungs with diffuse groundglass opacity. There is more confluent opacification in the superior segment lower lobes bilaterally. No pneumothorax. No significant pleural effusion. Heart size within normal limits. No pericardial effusion. No mediastinal, hilar or axillary lymphadenopathy. There are calcified prevascular lymph nodes. Thyroid gland is unremarkable. Limited images of the upper abdomen are unremarkable. No acute bony abnormality. IMPRESSION: 1. Bilateral airspace disease consistent with pneumonia. Consider atypical infection or viral pneumonitis. Aspiration pneumonia is another consideration. Electronically signed by: Warner Childress MD (04/23/2020 10:19 AM) [id number] Course & Med Decision Making: Course & Med Decision Making Pertinent Labs and Imaging studies reviewed. (See chart for details) [] Louie Disclaimer: Louie Disclaimer: This electronic medical record was generated, in whole or in part, using a voice recognition dictation system. Departure Departure Impression: Primary Impression: Seizure Additional Impressions: Aspiration pneumonia Qualified Codes: J69.0 - Pneumonitis due to inhalation of food and vomit Suspected 2019 novel coronavirus infection Hypoxia Disposition: HOME, SELF-CARE Condition: STABLE Referrals: NO PCP (PCP) ALVARO BELLAMY MD Patient Instructions: Aspiration Pneumonia, Seizure, Adult, [id number] Additional Instructions: You have been tested for or diagnosed with COVID-19. It is an infection caused by a new type of coronavirus. COVID-19 will cause cold-like or mild flu symptoms in most. It can cause more severe symptoms like problems breathing in some. There is no treatment for COVID-19. The body will clear the infection over time. Self-care will help to ease discomfort. Steps to Take: Self-Care Rest as needed. Healthy habits may help you feel better. Steps include: Choose healthy foods including fruits and vegetables. Drink water throughout the day. Get plenty of sleep each night. If you smoke, try to quit. It may ease breathing. Avoid alcohol. Keep Others Healthy The virus can spread to others. Droplets are released every time you sneeze or cough. The droplets can get into the mouth, nose, or eyes of people near you and lead to infection. To lower the chances of spreading COVID-19 to others: Stay at home until your doctor has said it is safe to leave. If you tested positive this will mean staying isolated until both of the following are true: At least 7 days have passed since the start of illness. You are free of fever for at least 72 hours without the use of medicine. During this time: - Avoid public areas, events, or transportation. Do not return to work or school until your doctor has said it is safe to do so. - Call ahead if you need to go to a medical center. Let them know you may have COVID-19. It will help them guide you where to go. They may also ask you to wear a facemask when you come to the office. - If you call for emergency medical services, let them know you may have COVID- 19. While at home: - Try to avoid close contact with others. Stay about 6 feet away. - If possible, spend most of your time in a separate room from others. - Use a face mask if you will be in close contact with others such as sharing a room or vehicle. - Have someone wipe down common surfaces in the home. Use household sql server bi developer every day on areas like doorknobs, counters, or sinks. - Cough or sneeze into a tissue. Throw the tissue away right after use. If a tissue is not available, cough or sneeze into your elbow. - Wash your hands often. Wash them after sneezing or coughing. Use soap and water and wash for at least 20 seconds. Alcohol based hand cocoa bean cleaner can be used if soap and water is not available. - Do not prepare food for others. Avoid sharing personal items like forks, spoons, or toothbrushes. - Avoid close contact with pets while you are sick. There is no evidence of the virus passing to pets. This is a safety step until more is known about this virus. Isolation can be frustrating. Social interaction can help. Keep in touch with friends and family through phone and tech options. You can still interact with others in your home, just keep a safe distance of about 6 feet. Follow-up: Your doctors office will check in with you to see if there are any changes in your health. You may be asked to keep track of symptoms to share with them. They will also let you know when you are clear to be in public again. Problems to Look Out For: Contact your doctor if your recovery is not going as you expect. Get emergency care if you have problems such as: - Trouble breathing - Nonstop chest pain or pressure - Changes in awareness, confusion, or problems waking - Lips or face have bluish color - Worsening of symptoms If you think you have an emergency, call for emergency medical services right away. As taken from [facility] Amoxicillin/Potassium Clav (AUGMENTIN 875-125 TABLET) 1 Each Tablet 1 TAB PO BID, #14 TAB Prov: WARNER MCCABE DO 04/23/20 Justicifation of Admission Dx: Justifications for Admission: Justification of Admission Dx: N/A COVID-19 Assessment: COVID-19 Patient Risks: Age 65 or older: No Sign of co-morbidity: No Exp to person + for COVID: No Exp to PUI: No Travel from affected area: No Lower respiratory symptoms: Yes Fever: No PPE Use: Full PPE with N95 mask or PAPR: Yes Critical Care Time Critical care time was 30 minutes which includes time at bedside, spent in discussion of patient's care with specialists and/or family members, with interpretation of laboratory and/or radiological studies and is exclusive of procedures. WARNER MCCABE 12, 2020 10:31
[2020-04-23 10:42] LABS: BASO % 1 % (0-3); EOS % 1 % (0-3); HEMATOCRIT 46.6 % (39.0-53.0); HEMOGLOBIN 15.6 g/dL (13.0-17.5); LYMPH # 1.8 x10^3/uL (1.0-4.8); LYMPH % 31 % (24-48); MEAN CORPUSCULAR HEMOGLOBIN 29 pg (25-35); MEAN CORPUSCULAR HGB CONC 34 g/dL (31-37); MEAN CORPUSCULAR VOLUME 87 fL (79-100); MONO # 0.4 x10^3/uL (0.0-1.1); MONO % 7 % (0-9); NEUT # 3.7 x10^3/uL (1.8-7.7); NEUT % 62 % (31-73); PLATELET COUNT 177 x10^3/uL (140-400); RED BLOOD COUNT 5.38 x10^6/uL (4.30-5.70); RED CELL DISTRIBUTION WIDTH 14.3 % (11.5-14.5)
[2020-04-23 10:45] LABS: CALCIUM 8.8 mg/dL (8.5-10.1); CREATININE 1.2 mg/dL (0.7-1.3); GFR 84.9; POTASSIUM 4.8 mmol/L (3.5-5.1)
[2020-04-23] MEDS ORDERED: AMPICILLIN/SULBACTAM 3 GM in IV NORMAL SALINE 100ML 100 ML IV ONE (10:45)
[2020-04-23 10:47] LABS: PROTHROMBIN TIME PATIENT 13.7 SEC (11.7-14.0)
[2020-04-23 10:59] LABS: ALBUMIN 3.6 g/dL (3.4-5.0); ALBUMIN/GLOBULIN RATIO 1.1 (1.0-1.7); MAGNESIUM 1.9 mg/dL (1.8-2.4); TOTAL BILIRUBIN 0.3 mg/dL (0.2-1.0); TOTAL PROTEIN 6.9 g/dL (6.4-8.2)
[2020-04-23 11:26] VITALS: BP 152/85
[2020-04-23] MEDS ORDERED: AMOX1TAB61 PO (11:26)
[2020-04-23 11:42] LABS: BILIRUBIN,URINE NEGATIVE (NEG); CLARITY,URINE CLEAR; COLOR,URINE YELLOW; NITRITE,URINE NEGATIVE (NEG); PH,URINE 5.5 (<5.0-8.0); PROTEIN,URINE 30 mg/dL (NEG-TRACE); UROBILINOGEN,URINE 0.2 mg/dL (0.2 mg/dL)
[2020-04-23 11:47] LABS: BARBITURATES NEG (NEG); BENZODIAZEPINES NEG (NEG); CANNABINOIDS POS (NEG); COCAINE NEG (NEG); METHADONE NEG (NEG); OPIATES NEG (NEG); PHENCYCLIDINE NEG (NEG)
[2020-04-23 11:49] LABS: AMPHETAMINE/METHAMPHETAMINE NEG (NEG); BACTERIA,URINE 0 /HPF (0-FEW); RBC,URINE 0 /HPF (0-2); SQUAMOUS EPITHELIAL CELL,UR FEW /LPF
[2020-04-23 11:50] LABS: HYALINE CASTS, URINE OCCASIONAL /HPF; SPERM,URINE PRESENT /HPF
--- NOTE | 2020-04-25 07:55 | EKG ---
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
== END 2020-04-23 11:32 | disposition home or self-care (01) ==
LOC: ER 09:22
DX: R56.9 Unspecified convulsions (principal); J69.0 Pneumonitis due to inhalation of food and vomit; Z20.828 Contact with and (suspected) exposure to other viral communicable diseases; R09.02 Hypoxemia; F17.200 Nicotine dependence, unspecified, uncomplicated
CPT/HCPCS: 36415; 70450; 71250; 72125; 80053; 80307; 81001; 82550; 83605; 83735; 84484; 85025; 85610; 85730; 87040; 93005; 96365; 96375; 99291; J0295; J2405; J3490; J7030

== ENCOUNTER 2020-07-17 13:22 | Emergency (ER) | payer SELFPAY ==
[~2020-07-17] VITALS: Ht 165.1 cm; Wt 70.4 kg
[~2020-07-17 13:22] MED LIST changes: +AMOX1TAB61 PO
[2020-07-17] MEDS ORDERED: IV NORMAL SALINE 1000ML BAG 1,000 ML IV ONE (13:45)
[2020-07-17] MEDS ORDERED: levETIRAcetam 1,000 MG in IV DEXTROSE 5% 100ML 100 ML IV ONE (14:00)
[2020-07-17 14:02] LABS: BASO # 0.1 x10^3/uL (0.0-0.2); BASO % 1 % (0-3); EOS % 0 % (0-3); HEMATOCRIT 51.3 % (39.0-53.0); HEMOGLOBIN 16.8 g/dL (13.0-17.5); LYMPH # 3.4 x10^3/uL (1.0-4.8); LYMPH % 33 % (24-48); MEAN CORPUSCULAR HEMOGLOBIN 29 pg (25-35); MEAN CORPUSCULAR HGB CONC 33 g/dL (31-37); MEAN CORPUSCULAR VOLUME 88 fL (79-100); MONO % 10 % (0-9); NEUT # 5.9 x10^3/uL (1.8-7.7); NEUT % 56 % (31-73); PLATELET COUNT 255 x10^3/uL (140-400); RED BLOOD COUNT 5.86 x10^6/uL (4.30-5.70); RED CELL DISTRIBUTION WIDTH 14.7 % (11.5-14.5); WHITE BLOOD COUNT 10.5 x10^3/uL (4.0-11.0)
[2020-07-17 14:12] LABS: CALCIUM 10.6 mg/dL (8.5-10.1); CREATININE 1.5 mg/dL (0.7-1.3); GFR 65.6
[2020-07-17 14:19] LABS: ALBUMIN 4.6 g/dL (3.4-5.0); TOTAL BILIRUBIN 0.6 mg/dL (0.2-1.0); TOTAL PROTEIN 9.3 g/dL (6.4-8.2)
[2020-07-17 14:39] LABS: PLT ESTIMATE ADEQUATE (ADEQUATE)
--- NOTE | 2020-07-17 15:03 | PHYS DOC ---
Past Medical History Past Medical History: Seizure Additional Past Medical Histor: NON-COMPLIANT Past Surgical History: No Surgical History Smoking Status: Current Every Day Smoker Alcohol Use: Sober Drug Use: None General Adult EDM: Chief Complaint: SEIZURE HPI: HPI: Patient is a 34 year old noncompliant male patient with history of seizures presenting today to the ED after having a seizures a couple minutes prior to coming to the ED. Patient is well-known to this ED for his seizures. He is supposed to be on Keppra. He does not know the last time he took his Keppra. He is currently on the cell phone and will not get off the phone to talk to us. He is also coughing, he has history of chronic cough. Review of Systems: Review of Systems: Constitutional: Denies fever or chills. [] Eyes: Denies change in visual acuity. [] HENT: Denies nasal congestion or sore throat. [] Respiratory: Noted to be coughing, denies shortness of breath. [] Cardiovascular: Denies chest pain or edema. [] GI: Denies abdominal pain, nausea, vomiting, bloody stools or diarrhea. [] : Denies dysuria. [] Musculoskeletal: Denies back pain or joint pain. [] Integument: Denies rash. [] Neurologic: Reports seizures. Denies headache, focal weakness or sensory changes. [] Psychiatric: Denies depression or anxiety. [] Heart Score: Risk Factors: Risk Factors: DM, Current or recent (<one month) smoker, HTN, HLP, family history of CAD, obesity. Risk Scores: Score 0 - 3: 2.5% MACE over next 6 weeks - Discharge Home Score 4 - 6: 20.3% MACE over next 6 weeks - Admit for Clinical Observation Score 7 - 10: 72.7% MACE over next 6 weeks - Early Invasive Strategies Current Medications: Current Medications Medications (Trade) Dose Ordered Sig/Zaid Start Time Stop Time Status Last Admin Dose Admin Levetiracetam 1000 mg/Dextrose 110 ml @ 440 mls/hr 1X ONCE 07/17/20 14:00 07/17/20 14:14 DC 07/17/20 13:55 440 MLS/HR Lorazepam (Ativan Inj) 2 mg 1X ONCE 07/17/20 14:00 07/17/20 14:01 DC 07/17/20 13:45 2 MG Sodium Chloride 1,000 ml @ 1,000 mls/hr 1X ONCE 07/17/20 13:45 07/17/20 14:44 DC 07/17/20 14:05 1,000 MLS/HR Allergies: Allergies: Allergies Coded Allergies Type Severity Reaction Last Updated Verified No Known Drug Allergies 03/02/19 No Physical Exam: PE: Constitutional: Well developed, well nourished, no acute distress, non-toxic appearance. [] HENT: Normocephalic, atraumatic, bilateral external ears normal, oropharynx moist, no oral exudates, nose normal. [] Eyes: PERRLA, EOMI, conjunctiva normal, no discharge. [] Neck: Normal range of motion, no tenderness, supple, no stridor. [] Cardiovascular:Heart rate regular rhythm, no murmur [] Lungs & Thorax: Bilateral breath sounds clear to auscultation [] Abdomen: Bowel sounds normal, soft, no tenderness, no masses, no pulsatile masses. [] Skin: Warm, dry, no erythema, no rash. [] Back: No tenderness, no CVA tenderness. [] Extremities: No tenderness, no cyanosis, no clubbing, ROM intact, no edema. [] Neurologic: Alert and oriented X 3, normal motor function, normal sensory function, no focal deficits noted. Cranial nerves II through XII intact Psychologic: Flat affect Current Patient Data: Labs: Laboratory Tests Test 07/17/20 13:45 White Blood Count 10.5 x10^3/uL (4.0-11.0) Red Blood Count 5.86 x10^6/uL (4.30-5.70) H Hemoglobin 16.8 g/dL (13.0-17.5) Hematocrit 51.3 % (39.0-53.0) Mean Corpuscular Volume 88 fL (79-100) Mean Corpuscular Hemoglobin 29 pg (25-35) Mean Corpuscular Hemoglobin Concent 33 g/dL (31-37) Red Cell Distribution Width 14.7 % (11.5-14.5) H Platelet Count 255 x10^3/uL (140-400) Neutrophils (%) (Auto) 56 % (31-73) Lymphocytes (%) (Auto) 33 % (24-48) Monocytes (%) (Auto) 10 % (0-9) H Eosinophils (%) (Auto) 0 % (0-3) Basophils (%) (Auto) 1 % (0-3) Neutrophils # (Auto) 5.9 x10^3/uL (1.8-7.7) Lymphocytes # (Auto) 3.4 x10^3/uL (1.0-4.8) Monocytes # (Auto) 1.0 x10^3/uL (0.0-1.1) Eosinophils # (Auto) 0.0 x10^3/uL (0.0-0.7) Basophils # (Auto) 0.1 x10^3/uL (0.0-0.2) Platelet Estimate Adequate (ADEQUATE) Large Platelets Present Sodium Level 143 mmol/L (136-145) Potassium Level 4.0 mmol/L (3.5-5.1) Chloride Level 106 mmol/L (98-107) Carbon Dioxide Level 13 mmol/L (21-32) L Anion Gap 24 (6-14) H Blood Urea Nitrogen 10 mg/dL (8-26) Creatinine 1.5 mg/dL (0.7-1.3) H Estimated GFR (Cockcroft-Gault) 65.6 BUN/Creatinine Ratio 7 (6-20) Glucose Level 171 mg/dL (70-99) H Calcium Level 10.6 mg/dL (8.5-10.1) H Total Bilirubin 0.6 mg/dL (0.2-1.0) Aspartate Amino Transferase (AST) 22 U/L (15-37) Alanine Aminotransferase (ALT) 20 U/L (16-63) Alkaline Phosphatase 80 U/L (46-116) Total Protein 9.3 g/dL (6.4-8.2) H Albumin 4.6 g/dL (3.4-5.0) Albumin/Globulin Ratio 1.0 (1.0-1.7) Ethyl Alcohol Level < 10 mg/dL (0-10) Laboratory Tests 07/17/20 13:45 Laboratory Tests 07/17/20 13:45 EKG: EKG: [] Radiology/Procedures: Radiology/Procedures: [] Course & Med Decision Making: Course & Med Decision Making Pertinent Labs and Imaging studies reviewed. (See chart for details) This is a 34-year-old male patient well-known to this ED presenting today to be evaluated for seizure. He has history of seizures and is noncompliant. He is currently on his cell phone and would not get off the phone to talk to us. He is also coughing, he is known for his chronic cough as well. He had a seizure in this ED and was given Ativan as well as Keppra. His labs are negative for any acute findings, creatinine was noted at 1.5 which is around his baseline. He was given IV fluids in the ED. BUN is normal.. He purposely urinated on the crespo in the ED. Nursing staff reports that he is also known to have bowel movements on purpose on the ED floors. Patient is in no distress. Dressed discharge to home. Dragon Disclaimer: Dragamairani Disclaimer: This electronic medical record was generated, in whole or in part, using a voice recognition dictation system. Departure Departure Impression: Primary Impression: Seizure Additional Impression: Cough Disposition: 01 HOME, SELF-CARE Condition: STABLE Referrals: NO PCP (PCP) ALVARO BELLAMY MD follow up as soon as possible Patient Instructions: Cough, Adult, Seizure, Adult Additional Instructions: You were evaluated for chronic seizures. Please take your medicines as prescribed and follow up with your doctor. Scripts Levetiracetam (KEPPRA) 500 Mg Tablet 1 TAB PO BID, #90 TAB 0 Refills Prov: JAIMEE REINA APRN 07/17/20 JAIMEE REINA APRN Jul 17, 2020 15:03
[2020-07-17] MEDS ORDERED: LEVE500T56 PO (16:45)
[2020-07-17 17:32] VITALS: BP 134/76
== END 2020-07-17 17:50 | disposition home or self-care (01) ==
LOC: ER 13:22
DX: R56.9 Unspecified convulsions (principal); R05 Cough; F17.200 Nicotine dependence, unspecified, uncomplicated
CPT/HCPCS: 36415; 80053; 85025; 96365; 96375; 99285; G0480; J1953; J2060; J7030; J7060; 99283

== ENCOUNTER 2020-10-04 05:29 | Emergency (ER) | payer SELFPAY ==
[~2020-10-04] VITALS: Ht 167.6 cm; Wt 68.2 kg
--- NOTE | 2020-10-04 06:18 | ED.ADGEN ---
Past Medical History Past Medical History: Seizure Additional Past Medical Histor: NON-COMPLIANT Past Surgical History: No Surgical History Smoking Status: Current Every Day Smoker Additional Information: 0.5ppd Alcohol Use: None Drug Use: None General Adult EDM: Chief Complaint: SEIZURE HPI: HPI: Patient is a 34 year old male coming in for a 1.5-minute seizure witnessed by his girlfriend who called EMS. Patient admits that he has a history of medication noncompliance. Has prescription from [facility] that was prescribed from this ER but does not the last time he took a dose. Patient states his seizure is no different than his others. Is awake and alert after a postictal period that was witnessed by EMS. Patient has been vomiting afterwards that he says is normal after his seizures. His he otherwise has been well. Denies any fevers, headache, cough, pain. Review of Systems: Review of Systems: Negative other than stated in HPI Allergies: Allergies: Allergies Coded Allergies Type Severity Reaction Last Updated Verified No Known Drug Allergies 03/02/19 No Physical Exam: PE: Constitutional: Well developed, well nourished, no acute distress, non-toxic appearance. [] HENT: Normocephalic, atraumatic, bilateral external ears normal, oropharynx moist, no oral exudates, nose normal. [] Eyes: PERRLA, EOMI, conjunctiva normal, no discharge. [] Neck: Normal range of motion, no tenderness, supple, no stridor. [] Cardiovascular:Heart rate regular rhythm, no murmur [] Lungs & Thorax: Bilateral breath sounds clear to auscultation [] Abdomen: Bowel sounds normal, soft, no tenderness, no masses, no pulsatile masses. [] Skin: Warm, dry, no erythema, no rash. [] Back: No tenderness, no CVA tenderness. [] Extremities: No tenderness, no cyanosis, no clubbing, ROM intact, no edema. [] Neurologic: Alert and oriented X 3, normal motor function, normal sensory function, no focal deficits noted. [] Psychologic: Affect normal, judgement normal, mood normal. [] Current Patient Data: Vital Signs: Vital Signs Date Time Temp Pulse Resp B/P (MAP) Pulse Ox O2 Delivery O2 Flow Rate FiO2 10/04/20 05:38 98.1 108 24 100 Room Air 98.1 EKG: EKG: [] Heart Score: Risk Factors: Risk Factors: DM, Current or recent (<one month) smoker, HTN, HLP, family history of CAD, obesity. Risk Scores: Score 0 - 3: 2.5% MACE over next 6 weeks - Discharge Home Score 4 - 6: 20.3% MACE over next 6 weeks - Admit for Clinical Observation Score 7 - 10: 72.7% MACE over next 6 weeks - Early Invasive Strategies Radiology/Procedures: Radiology/Procedures: [] Course & Med Decision Making: Course & Med Decision Making Recurrent seizure due to medication noncompliance, no indication for work-up. Patient is back to baseline alert and oriented now. Had discussion with patient about medication compliance, patient states that he knows he needs to start taking medication as prescribed that he will. Patient has a nearly full bottle of Keppra with him, so no need to make new prescription. Discussed follow-up for patient to establish primary care. [] Dragon Disclaimer: Dragon Disclaimer: This electronic medical record was generated, in whole or in part, using a voice recognition dictation system. Departure Departure Impression: Primary Impression: Recurrent seizures Additional Impression: Medical non-compliance Disposition: 01 DC HOME SELF CARE/HOMELESS Condition: STABLE Referrals: NO PCP (PCP) Patient Instructions: Epilepsy, [id number] Additional Instructions: Take your levetiracetam as prescribed and establish primary care provider Problem Qualifiers NEELAM ELLIS MD Oct 04, 2020 06:17
[2020-10-04 06:37] VITALS: BP 123/72
== END 2020-10-04 06:43 | disposition home or self-care (01) ==
LOC: ER 05:29
DX: G40.802 Other epilepsy, not intractable, without status epilepticus (principal); R11.10 Vomiting, unspecified; F17.200 Nicotine dependence, unspecified, uncomplicated; Z91.19 Patient's noncompliance with other medical treatment and regimen
CPT/HCPCS: 99283

== ENCOUNTER 2020-12-15 02:58 | Emergency (ER) | payer SELFPAY ==
[~2020-12-15] VITALS: Ht 165.1 cm; Wt 80.0 kg
[2020-12-15] MEDS ORDERED: ONDANSETRON PF 4 MG/2 ML VIAL. IVP ONE (03:00)
[2020-12-15] MEDS ORDERED: IV NORMAL SALINE 1000ML BAG 1,000 ML IV ONE (03:00)
--- NOTE | 2020-12-15 03:04 | PHYS DOC ---
Past Medical History Past Medical History: Seizure Additional Past Medical Histor: NON-COMPLIANT Past Surgical History: No Surgical History Smoking Status: Current Every Day Smoker Alcohol Use: None Drug Use: None General Adult EDM: Chief Complaint: SEIZURE HPI: HPI: 35-year-old male with significant history of seizure disorder on Keppra, medication noncompliance, who presents for evaluation of breakthrough seizure. The patient had a reported witnessed 1 minute seizure episode, characterized by tonic-clonic activity. There was postictal confusion that is gradually improving, as well as some nausea. No significant head injury or headache. Review of records show prior presentations for breakthrough seizure in the setting of medication noncompliance. He states that he has not taken his me dication routinely for the last 3 months or so. Otherwise no acute medical complaints. Review of Systems: Review of Systems: Gen: No fever, chills. Eyes: No blurred vision, diplopia. ENT: No nasal congestion, sore throat. CV: No CP, palpitations. Resp. No SOB, cough. GI: No abd pain. Reports nausea. Neuro: No MUNOZ, dizziness, weakness. Reports observed seizure activity. MSK: No myalgia, arthralgia, back pain. Skin: No acute rash or lesion. Remainder of systems reviewed and negative unless otherwise specified. Heart Score: Risk Factors: Risk Factors: DM, Current or recent (<one month) smoker, HTN, HLP, family history of CAD, obesity. Risk Scores: Score 0 - 3: 2.5% MACE over next 6 weeks - Discharge Home Score 4 - 6: 20.3% MACE over next 6 weeks - Admit for Clinical Observation Score 7 - 10: 72.7% MACE over next 6 weeks - Early Invasive Strategies Allergies: Allergies: Allergies Coded Allergies Type Severity Reaction Last Updated Verified No Known Drug Allergies 03/02/19 No Physical Exam: PE: Gen: NAD. Well nourished. Head: NC/AT. Eyes: No scleral icterus. Mild conjunctival injection. PERRL. ENT: MMM. Posterior OP clear. Neck: Supple. No meningismus. CV: RRR. Peripheral pulses intact. Resp: CTAB. Abd: Soft. NT. ND. MSK: No peripheral cyanosis. No edema. Neuro: A&Ox3. Strength & sensation grossly intact throughout. No dysmetria. GCS 15. Skin. Warm. Dry. Psych: Appropriate mood & affect. Current Patient Data: Labs: Laboratory Tests Test 12/15/20 03:10 White Blood Count 8.7 x10^3/uL (4.0-11.0) Red Blood Count 4.92 x10^6/uL (4.30-5.70) Hemoglobin 14.5 g/dL (13.0-17.5) Hematocrit 42.9 % (39.0-53.0) Mean Corpuscular Volume 87 fL (79-100) Mean Corpuscular Hemoglobin 30 pg (25-35) Mean Corpuscular Hemoglobin Concent 34 g/dL (31-37) Red Cell Distribution Width 13.9 % (11.5-14.5) Platelet Count 204 x10^3/uL (140-400) Neutrophils (%) (Auto) 35 % (31-73) Lymphocytes (%) (Auto) 54 % (24-48) Monocytes (%) (Auto) 9 % (0-9) Eosinophils (%) (Auto) 2 % (0-3) Basophils (%) (Auto) 2 % (0-3) Neutrophils # (Auto) 3.0 x10^3/uL (1.8-7.7) Lymphocytes # (Auto) 4.7 x10^3/uL (1.0-4.8) Monocytes # (Auto) 0.7 x10^3/uL (0.0-1.1) Eosinophils # (Auto) 0.1 x10^3/uL (0.0-0.7) Basophils # (Auto) 0.1 x10^3/uL (0.0-0.2) Sodium Level 138 mmol/L (136-145) Chloride Level 101 mmol/L (98-107) Carbon Dioxide Level 20 mmol/L (21-32) Anion Gap 17 (6-14) Blood Urea Nitrogen 12 mg/dL (8-26) Estimated GFR (Cockcroft-Gault) 70.6 BUN/Creatinine Ratio 9 (6-20) Glucose Level 169 mg/dL (70-99) Calcium Level 9.1 mg/dL (8.5-10.1) Total Bilirubin 0.6 mg/dL (0.2-1.0) Aspartate Amino Transf (AST/SGOT) 20 U/L (15-37) Alkaline Phosphatase 62 U/L (46-116) Troponin I Quantitative < 0.017 ng/mL (0.000-0.055) Total Protein 7.2 g/dL (6.4-8.2) Albumin 3.9 g/dL (3.4-5.0) Albumin/Globulin Ratio 1.2 (1.0-1.7) EKG: EKG: EKG at 0323. Sinus rhythm. Heart rate 93. Normal intervals. No STEMI. Interpreted by me. Radiology/Procedures: Radiology/Procedures: [] Course & Med Decision Making: Course & Med Decision Making Pertinent Labs and Imaging studies reviewed. (See chart for details) In summary, 35M with seizure d/o p/w breakthrough seizure in the setting of medication noncompliance. Transient postictal confusion and nausea, now resolved. Labs largely unrevealing. EKG without acute injury pattern. Given keppra load and IVF. Will DC home. Advised compliance with Keppra. Refill provided. Return precautions given. Louie Disclaimer: Louie Disclaimer: This electronic medical record was generated, in whole or in part, using a voice recognition dictation system. Departure Departure Impression: Primary Impression: Seizure Disposition: 01 DC HOME SELF CARE/HOMELESS Condition: STABLE Referrals: NO PCP (PCP) Patient Instructions: Seizure, Adult Additional Instructions: Please take your keppra as directed. Scripts Levetiracetam (KEPPRA) 500 Mg Tablet 1 TAB PO BID for 30 Days, #60 TAB 0 Refills Prov: JARED FRIEDMAN DO 12/15/20 JARED FRIEDMAN DO Dec 15, 2020 03:04
[2020-12-15] MEDS ORDERED: levETIRAcetam 1,000 MG in IV DEXTROSE 5% 100ML 100 ML IV ONE (03:15)
[2020-12-15 03:21] LABS: BASO # 0.1 x10^3/uL (0.0-0.2); BASO % 2 % (0-3); EOS # 0.1 x10^3/uL (0.0-0.7); EOS % 2 % (0-3); HEMATOCRIT 42.9 % (39.0-53.0); HEMOGLOBIN 14.5 g/dL (13.0-17.5); LYMPH # 4.7 x10^3/uL (1.0-4.8); LYMPH % 54 % (24-48); MEAN CORPUSCULAR HEMOGLOBIN 30 pg (25-35); MEAN CORPUSCULAR HGB CONC 34 g/dL (31-37); MEAN CORPUSCULAR VOLUME 87 fL (79-100); MONO # 0.7 x10^3/uL (0.0-1.1); MONO % 9 % (0-9); NEUT % 35 % (31-73); PLATELET COUNT 204 x10^3/uL (140-400); RED BLOOD COUNT 4.92 x10^6/uL (4.30-5.70); RED CELL DISTRIBUTION WIDTH 13.9 % (11.5-14.5); WHITE BLOOD COUNT 8.7 x10^3/uL (4.0-11.0)
[2020-12-15 04:01] LABS: CALCIUM 9.1 mg/dL (8.5-10.1); CREATININE 1.4 mg/dL (0.7-1.3); GFR 70.6; POTASSIUM 3.6 mmol/L (3.5-5.1)
[2020-12-15 04:07] LABS: ALBUMIN 3.9 g/dL (3.4-5.0); ALBUMIN/GLOBULIN RATIO 1.2 (1.0-1.7); TOTAL BILIRUBIN 0.6 mg/dL (0.2-1.0); TOTAL PROTEIN 7.2 g/dL (6.4-8.2)
[2020-12-15] MEDS ORDERED: LEVE500T56 PO (04:15)
[2020-12-15 04:30] VITALS: BP 98/53
--- NOTE | 2020-12-15 04:39 | EKG ---
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
== END 2020-12-15 04:54 | disposition home or self-care (01) ==
LOC: ER 02:58
DX: G40.909 Epilepsy, unspecified, not intractable, without status epilepticus (principal); R41.0 Disorientation, unspecified; F17.200 Nicotine dependence, unspecified, uncomplicated
CPT/HCPCS: 36415; 80053; 83735; 84484; 85025; 93005; 96365; 96375; 99284; J1953; J2405; J7030; J7060

== ENCOUNTER 2021-02-25 03:49 | Emergency (ER) | payer SELFPAY ==
[~2021-02-25] VITALS: Ht 162.6 cm; Wt 80.0 kg
[2021-02-25] MEDS ORDERED: LEVE500T56 PO (04:42)
--- NOTE | 2021-02-25 04:43 | PHYS DOC ---
Past Medical History Past Medical History: Seizure Additional Past Medical Histor: NON-COMPLIANT Past Surgical History: No Surgical History Smoking Status: Current Every Day Smoker Alcohol Use: None Drug Use: None General Adult EDM: Chief Complaint: SEIZURE HPI: HPI: Patient is a 35 year old male past medical history seizures presents for evaluation after seizure. Patient lives with significant other who called 911. EMS states patient had 3 seizures today. Patient does not recall having a seizure. Patient states he has a mild headache which she normally gets after seizures. Patient states he is on Keppra but takes it every few days when he remembers. Review of Systems: Review of Systems: Review of systems: Constitutional symptoms- No fever, no chills. Eyes- No Discharge, No Visual Loss Respiratory symptoms- No shortness of breath, No wheezing, No Dyspnea on Exertion Cardiovascular Systems; No chest pain, No Palpitations, No syncope Gastrointestinal symptoms: NO abdominal pain, no nausea, no vomiting or diarrhea. Genitourinary symptoms: No dysuria. Musculoskeletal symptoms: No back pain No extremity pain. NEUROLOGICAL Symptoms: No headache, no generalized weakness; No focal Weakness positive seizures Heart Score: C/O Chest Pain: N/A Risk Factors: Risk Factors: DM, Current or recent (<one month) smoker, HTN, HLP, family history of CAD, obesity. Risk Scores: Score 0 - 3: 2.5% MACE over next 6 weeks - Discharge Home Score 4 - 6: 20.3% MACE over next 6 weeks - Admit for Clinical Observation Score 7 - 10: 72.7% MACE over next 6 weeks - Early Invasive Strategies Allergies: Allergies: Allergies Coded Allergies Type Severity Reaction Last Updated Verified No Known Drug Allergies 03/02/19 No Physical Exam: PE: General: alert, no acute distress. Skin: warm, dry and intact. Head:: Normocephalic, atraumatic. Neck: Trachea midline. Eyes: EOMI, Normal conjunctiva, No drainage CARDIOVASCULAR: Regular rate and rhythm RESPIRATORY: No respiratory distress Back: Full range of motion. MUSCULOSKELETAL: Full range of motion of bilateral upper and lower extremities. GASTROINTESTINAL: Abdomen soft without rebound or guarding. NEUROLOGICAL: Alert and noted to person, place and time. No neurological deficits observed Psychiatric: Cooperative. Normal judgment Current Patient Data: Vital Signs: Vital Signs Date Time Temp Pulse Resp B/P (MAP) Pulse Ox O2 Delivery O2 Flow Rate FiO2 02/25/21 03:55 98.9 120 24 134/60 (84) 97 Room Air 98.9 EKG: EKG: [] Radiology/Procedures: Radiology/Procedures: [] Course & Med Decision Making: Course & Med Decision Making Pertinent Labs and Imaging studies reviewed. (See chart for details) [] Patient was evaluated for chief complaint. Work-up consisted of laboratory analysis. Results reviewed and discussed with patient. Patient received 1 g of Keppra. Patient discharged home with Keppra prescription advised to take daily. Dragon Disclaimer: Dragon Disclaimer: This electronic medical record was generated, in whole or in part, using a voice recognition dictation system. Departure Departure Impression: Primary Impression: Seizure Disposition: HOME / SELF CARE / HOMELESS Condition: STABLE Referrals: NO PCP (PCP) Patient Instructions: Seizure, Adult Scripts Levetiracetam (KEPPRA) 500 Mg Tablet 1 TAB PO BID for 30 Days, #60 TAB 0 Refills Prov: KAMILA RUBIO DO 02/25/21 KAMILA RUBIO DO February 25, 2021 04:43
[2021-02-25] MEDS ORDERED: levETIRAcetam 1,000 MG in IV DEXTROSE 5% 100ML 100 ML IV ONE (04:45)
[2021-02-25 04:52] LABS: BASO # 0.1 x10^3/uL (0.0-0.2); BASO % 1 % (0-3); EOS % 0 % (0-3); HEMATOCRIT 44.6 % (39.0-53.0); LYMPH % 35 % (24-48); MEAN CORPUSCULAR HEMOGLOBIN 29 pg (25-35); MEAN CORPUSCULAR HGB CONC 34 g/dL (31-37); MEAN CORPUSCULAR VOLUME 87 fL (79-100); MONO # 1.1 x10^3/uL (0.0-1.1); MONO % 9 % (0-9); NEUT # 6.4 x10^3/uL (1.8-7.7); NEUT % 56 % (31-73); PLATELET COUNT 249 x10^3/uL (140-400); RED BLOOD COUNT 5.15 x10^6/uL (4.30-5.70); RED CELL DISTRIBUTION WIDTH 13.9 % (11.5-14.5); WHITE BLOOD COUNT 11.6 x10^3/uL (4.0-11.0)
[2021-02-25 05:04] LABS: CALCIUM 9.1 mg/dL (8.5-10.1); CREATININE 1.5 mg/dL (0.7-1.3); GFR 65.2; POTASSIUM 3.7 mmol/L (3.5-5.1)
[2021-02-25 05:10] LABS: ALBUMIN 4.4 g/dL (3.4-5.0); ALBUMIN/GLOBULIN RATIO 1.2 (1.0-1.7); TOTAL PROTEIN 8.1 g/dL (6.4-8.2)
[2021-02-25 05:50] VITALS: BP 137/76
== END 2021-02-25 05:35 | disposition home or self-care (01) ==
LOC: ER 03:49
DX: R56.9 Unspecified convulsions (principal)
CPT/HCPCS: 36415; 80053; 85025; 96365; 99285; J1953; J7060

== ENCOUNTER 2021-04-02 02:20 | Emergency (ER) | payer SELFPAY ==
[~2021-04-02] VITALS: Ht 165.1 cm; Wt 68.2 kg
[2021-04-02] MEDS ORDERED: ONDANSETRON PF 4 MG/2 ML VIAL. ONE (02:39)
[2021-04-02 02:40] LABS: BASO # 0.1 x10^3/uL (0.0-0.2); BASO % 1 % (0-3); EOS % 0 % (0-3); HEMATOCRIT 50.2 % (39.0-53.0); HEMOGLOBIN 16.6 g/dL (13.0-17.5); LYMPH # 3.1 x10^3/uL (1.0-4.8); LYMPH % 23 % (24-48); MEAN CORPUSCULAR HEMOGLOBIN 29 pg (25-35); MEAN CORPUSCULAR HGB CONC 33 g/dL (31-37); MEAN CORPUSCULAR VOLUME 88 fL (79-100); MONO # 0.8 x10^3/uL (0.0-1.1); MONO % 6 % (0-9); NEUT # 9.7 x10^3/uL (1.8-7.7); NEUT % 71 % (31-73); PLATELET COUNT 218 x10^3/uL (140-400); RED BLOOD COUNT 5.69 x10^6/uL (4.30-5.70); RED CELL DISTRIBUTION WIDTH 14.5 % (11.5-14.5); WHITE BLOOD COUNT 13.6 x10^3/uL (4.0-11.0)
[2021-04-02 02:46] LABS: CALCIUM 9.1 mg/dL (8.5-10.1); CREATININE 1.5 mg/dL (0.7-1.3); GFR 65.2; POTASSIUM 3.7 mmol/L (3.5-5.1)
[2021-04-02 02:53] LABS: ALBUMIN/GLOBULIN RATIO 1.1 (1.0-1.7); TOTAL BILIRUBIN 0.6 mg/dL (0.2-1.0); TOTAL PROTEIN 7.7 g/dL (6.4-8.2)
[2021-04-02] MEDS ORDERED: IV NORMAL SALINE 1000ML BAG 1,000 ML IV ONE (03:00)
[2021-04-02] MEDS ORDERED: ONDANSETRON PF 4 MG/2 ML VIAL. IVP ONE (03:00)
--- NOTE | 2021-04-02 03:04 | EKG ---
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
--- NOTE | 2021-04-02 03:18 | PHYS DOC ---
Past Medical History Past Medical History: Seizure Additional Past Medical Histor: NON-COMPLIANT Past Surgical History: No Surgical History Smoking Status: Current Every Day Smoker Alcohol Use: None Drug Use: None General Adult EDM: Chief Complaint: SEIZURE HPI: HPI: Patient is a 35 year old male with past medical history of seizures presents for evaluation after seizure. Per EMS- seizure witness by GF. Patient was asleep, had a seizure and fell out of bed. On arrival patient A/O x4. Patient coughing and spitting up blood. His O2 Sat was 80% on room air. Patient also vomiting. Patient admits to medicine non-compliance. Review of Systems: Review of Systems: Review of systems: Constitutional symptoms- No fever, no chills. Eyes- No Discharge, No Visual Loss Respiratory symptoms- Positive shortness of breath, No wheezing, No Dyspnea on Exertion positive cough Cardiovascular Systems; No chest pain, No Palpitations, No syncope Gastrointestinal symptoms: NO abdominal pain, Positive nausea, Positive vomiting no diarrhea. Genitourinary symptoms: No dysuria. Musculoskeletal symptoms: No back pain No extremity pain. NEUROLOGICAL Symptoms: No headache, no generalized weakness; No focal Weakness positive seizures Skin: No rash. Heart Score: C/O Chest Pain: N/A Risk Factors: Risk Factors: DM, Current or recent (<one month) smoker, HTN, HLP, family history of CAD, obesity. Risk Scores: Score 0 - 3: 2.5% MACE over next 6 weeks - Discharge Home Score 4 - 6: 20.3% MACE over next 6 weeks - Admit for Clinical Observation Score 7 - 10: 72.7% MACE over next 6 weeks - Early Invasive Strategies Current Medications: Current Medications Medications (Trade) Dose Ordered Sig/Zaid Start Time Stop Time Status Last Admin Dose Admin Ondansetron HCl (Zofran) 4 mg STK-MED ONCE 04/02/21 02:39 04/02/21 02:40 DC Prochlorperazine Edisylate (Compazine) 10 mg 1X ONCE 04/02/21 03:30 04/02/21 03:31 Sodium Chloride 1,000 ml @ 1,000 mls/hr 1X ONCE 04/02/21 03:00 04/02/21 03:59 04/02/21 02:40 1,000 MLS/HR Allergies: Allergies: Allergies Coded Allergies Type Severity Reaction Last Updated Verified No Known Drug Allergies 03/02/19 No Physical Exam: PE: General: alert, no acute distress. Skin: warm, dry and intact. HENT: bilateral external ears normal, oropharynx moist, nose normal. tongue laceration left posterior, oral wound left lower Head:: Normocephalic, abrasion left tempal Neck: Trachea midline. Eyes: EOMI, Normal conjunctiva, No drainage CARDIOVASCULAR: Regular rate and rhythm RESPIRATORY: tachypnea Back: Full range of motion. Skin: Warm, dry, no erythema, no rash. abrasion left tempal MUSCULOSKELETAL: Full range of motion of bilateral upper and lower extremities. GASTROINTESTINAL: Abdomen soft without rebound or guarding. NEUROLOGICAL: Alert and noted to person, place and time. No neurological deficits observed Psychiatric: Cooperative. Normal judgment Current Patient Data: Labs: Laboratory Tests Test 04/02/21 02:31 White Blood Count 13.6 x10^3/uL (4.0-11.0) H Red Blood Count 5.69 x10^6/uL (4.30-5.70) Hemoglobin 16.6 g/dL (13.0-17.5) Hematocrit 50.2 % (39.0-53.0) Mean Corpuscular Volume 88 fL (79-100) Mean Corpuscular Hemoglobin 29 pg (25-35) Mean Corpuscular Hemoglobin Concent 33 g/dL (31-37) Red Cell Distribution Width 14.5 % (11.5-14.5) Platelet Count 218 x10^3/uL (140-400) Neutrophils (%) (Auto) 71 % (31-73) Lymphocytes (%) (Auto) 23 % (24-48) L Monocytes (%) (Auto) 6 % (0-9) Eosinophils (%) (Auto) 0 % (0-3) Basophils (%) (Auto) 1 % (0-3) Neutrophils # (Auto) 9.7 x10^3/uL (1.8-7.7) H Lymphocytes # (Auto) 3.1 x10^3/uL (1.0-4.8) Monocytes # (Auto) 0.8 x10^3/uL (0.0-1.1) Eosinophils # (Auto) 0.0 x10^3/uL (0.0-0.7) Basophils # (Auto) 0.1 x10^3/uL (0.0-0.2) Sodium Level 141 mmol/L (136-145) Potassium Level 3.7 mmol/L (3.5-5.1) Chloride Level 103 mmol/L (98-107) Carbon Dioxide Level 14 mmol/L (21-32) L Anion Gap 24 (6-14) H Blood Urea Nitrogen 15 mg/dL (8-26) Creatinine 1.5 mg/dL (0.7-1.3) H Estimated GFR (Cockcroft-Gault) 65.2 BUN/Creatinine Ratio 10 (6-20) Glucose Level 175 mg/dL (70-99) H Calcium Level 9.1 mg/dL (8.5-10.1) Total Bilirubin 0.6 mg/dL (0.2-1.0) Aspartate Amino Transferase (AST) 55 U/L (15-37) H Alanine Aminotransferase (ALT) 40 U/L (16-63) Alkaline Phosphatase 87 U/L (46-116) Ammonia 40 mcmol/L (11-34) H Total Protein 7.7 g/dL (6.4-8.2) Albumin 4.0 g/dL (3.4-5.0) Albumin/Globulin Ratio 1.1 (1.0-1.7) Laboratory Tests 04/02/21 02:31 Laboratory Tests 04/02/21 02:31 Vital Signs: Vital Signs Date Time Temp Pulse Resp B/P (MAP) Pulse Ox O2 Delivery O2 Flow Rate FiO2 04/02/21 02:20 97.6 106 19 144/91 (108) 94 NonRebreather Mask 97.6 EKG: EKG: [] Performed at 0223 Rate [address] elevation No ST depression No acute CT Radiology/Procedures: Radiology/Procedures: [] Impression: wet read bilateral infiltrates Course & Med Decision Making: Course & Med Decision Making Pertinent Labs and Imaging studies reviewed. (See chart for details) [] Patient was evaluated for chief complaint. Work up consisted of labs radiologic imaging and ekg. Results reviewed. Patient tachypneic and placed on a nonrebreather with oxygen improvement 96% Chest x-ray wet read diffuse bilateral infiltrates. Patient was started on Zosyn Covid swab obtained and pending. Patient's nausea/vomiting was treated with Zofran. Patient's lactic acid was noted to be elevated he was treated with IV fluids. CT chest was pending at the time of admission. Patient was admitted to the hospitalist. Critical Care Time 35 Minutes Time spent on reviewing labs, radiologic imaging, documentation, and discussing patient with consults. Dragon Disclaimer: Dragon Disclaimer: This electronic medical record was generated, in whole or in part, using a voice recognition dictation system. Departure Departure Impression: Primary Impression: Seizure Additional Impressions: Cough Pneumonia Disposition: ADMITTED INPATIENT Admitting Physician: JOSE LUIS Referrals: NO PCP (PCP) KAMILA RUBIO DO Apr 02, 2021 03:18
[2021-04-02] MEDS ORDERED: PROCHLORPERAZINE 10 MG/2 ML VIAL. IV ONE (03:30)
--- NOTE | 2021-04-02 03:52 | RAD ---
EXAMINATION: CT HEAD/BRAIN WO (CT HEAD WITHOUT IV CONTRAST) CLINICAL HISTORY: SEIZURE FALL HEAD CONTUSION TECHNIQUE: Serial axial images without IV contrast were obtained from the vertex to the foramen magnu m. CT Dose Reduction Employed: One or more of the following individualized dose reduction techniques wer e utilized for this examination: 1. Automated exposure control 2. Adjustment of the mA and/or kV ac cording to patient size 3. Use of iterative reconstruction technique. COMPARISON: None FINDINGS: Acute Change: Mild subcutaneous edema/small hematoma along the inferior anterolateral left frontal sc alp. No evidence of an acute infarct or other acute parenchymal process. Hemorrhage: No evidence of acute intracranial hemorrhage. Mass Lesion/Mass Effect: No evidence of intracranial mass or extraaxial fluid collection. No signific ant mass effect. Parenchyma: No significant volume loss. Parenchyma otherwise within normal limits for age. Ventricles: Ventricles within normal limits for age. Paranasal Sinuses and Skull Base: Small mucous retention cysts/polyp in the sphenoid sinus. Visualize d skull base and soft tissues unremarkable. IMPRESSION: Mild subcutaneous edema/small hematoma along the left frontal scalp. No evidence of acute intracranial abnormality. Electronically signed by: Yang Bauman DO (04/02/2021 3:50 AM) [facility]
[2021-04-02] MEDS ORDERED: CONTRAST GIVEN. MC PRN (04:30)
[2021-04-02] MEDS ORDERED: IOHEXOL 350 MG/ML 100 ML VIAL. IV ONE (05:00)
[2021-04-02] MEDS ORDERED: PIPERACILLIN/TAZOBACTAM 4.5 GM in IV NORMAL SALINE 100ML 100 ML IV ONE (05:00)
[2021-04-02 05:02] LABS: AMPHETAMINE/METHAMPHETAMINE NEG (NEG); BARBITURATES NEG (NEG); BENZODIAZEPINES NEG (NEG); CANNABINOIDS POS (NEG); COCAINE NEG (NEG); METHADONE NEG (NEG); OPIATES NEG (NEG); PHENCYCLIDINE NEG (NEG)
--- NOTE | 2021-04-02 05:26 | RAD ---
EXAMINATION: XR CHEST 1V CLINICAL HISTORY: Shortness of breath EXAM DATE/TIME: 04/02/2021 3:03 AM COMPARISON: 02/25/2020 FINDINGS: Lines, Tubes, and Devices: None. Cardiomediastinal Silhouette: Within normal limits. Lungs and Pleura: Diffuse patchy opacities throughout the bilateral lungs. No evidence of pleural eff usion or pneumothorax. Bones and Soft Tissues: No acute osseous abnormality. IMPRESSION: Diffuse patchy bilateral airspace disease. Electronically signed by: Yang Bauman DO (04/02/2021 5:23 AM) [facility]
[2021-04-02] MEDS ORDERED: ACETAMINOPHEN 325 MG TABLET. PO PRN ×2 (06:15→08:00)
[2021-04-02] MEDS ORDERED: ONDANSETRON PF 4 MG/2 ML VIAL. IV PRN (06:15)
[2021-04-02 06:24] LABS: BASE EXCESS ABG -6 mmol/L (-3-3); HCO3 ABG 19 mmol/L (21-28); PCO2 ABG 39 mmHg (35-46); PO2 ABG 56 mmHg (85-108); SAT O2 ABG 87 % (92-99)
[2021-04-02 06:25] LABS: FIO2 ABG 100
--- NOTE | 2021-04-02 06:34 | RAD ---
EXAMINATION: CTA CHEST CLINICAL HISTORY: Dyspnea, hypoxia Technique: Spiral CT acquisition of the chest from the thoracic inlet to the upper abdomen following IV contrast with coronal and sagittal reformatted images also provided for review. 3D maximum intensi ty projection images also performed. CT Dose Reduction Employed: One or more of the following individualized dose reduction techniques wer e utilized for this examination: 1. Automated exposure control 2. Adjustment of the mA and/or kV ac cording to patient size 3. Use of iterative reconstruction technique. Comparison: Chest radiograph same day FINDINGS: Pulmonary Vasculature: No evidence of main, lobar, or segmental pulmonary arterial thrombus. Lung Parenchyma, Pleura, and Airways: Diffuse patchy opacities throughout bilateral lungs. No pleural effusion. Central airways patent. Lower Neck, Lymph Nodes, and Mediastinum: Visualized thyroid gland within normal limits. No mediastin al, hilar, or axillary lymphadenopathy. Heart, Pericardium, and Thoracic Vessels: Borderline cardiomegaly. No pericardial effusion. Thoracic aorta within normal limits. No coronary artery atherosclerotic calcifications are noted, although the study is not optimized for coronary assessment. Bones and Soft Tissues: No evidence of acute osseous abnormality. Upper Abdomen: Diffuse hypoattenuation of the hepatic parenchyma, compatible with steatosis. IMPRESSION: No evidence of main, lobar, or segmental pulmonary embolism. Diffuse patchy opacities throughout the bilateral lungs, possibly related to alveolar edema or atypic al/viral pneumonia. Correlate clinically. Borderline cardiomegaly. Electronically signed by: Yang Bauman DO (04/02/2021 6:31 AM) [facility]
--- NOTE | 2021-04-02 07:58 | PDOC1 ---
History and Physical Date of Admission Date of Admission DATE: 04/02/21 TIME: 07:34 Identification/Chief Complaint Chief Complaint Seizure Source Source: Chart review, Patient History of Present Illness History of Present Illness Patient 35-year-old female past medical history seizures who presents for evaluation ER after witnessed seizure at home. Patient was reportedly asleep when the seizure-like activity occurred, and fell out of bed. This was witnessed by his girlfriend. Upon arrival patient was hypoxic on room air at 80%. Reportedly nauseous and vomiting in the ED, coughing up blood. Labs on admission WBC 13.6, creatinine 1.5, lactic acid 11.2, pH 7.32, PO2 56, PCO2 39. Chest x-ray admission showed diffuse patchy bilateral airspace disease. He does admit to noncompliance with his Keppra, stating he has not taken this medication in 2 weeks. Will admit for further medical management. Past Medical History CENTRAL NERVOUS SYSTEM: Seizure Past Surgical History Past Surgical History: No pertinent history Family History Family History: High Cholestrol Social History Smoke: 1 pack per day ALCOHOL: occassional Drugs: None, Marijuana Current Problem List Problem List Problems Medical Problems: (1) Cough Status: Acute (2) Pneumonia Status: Acute (3) Seizure Status: Acute Current Medications Current Medications Current Medications Ondansetron HCl (Zofran) 4 mg 1X ONCE IVP Last administered on 04/02/21at 02:40; Start 04/02/21 at 03:00; Stop 04/02/21 at 03:01; Status DC Sodium Chloride 1,000 ml @ 1,000 mls/hr 1X ONCE IV Last administered on 04/02/21at 02:40; Start 04/02/21 at 03:00; Stop 04/02/21 at 03:59; Status DC Ondansetron HCl (Zofran) 4 mg STK-MED ONCE .ROUTE ; Start 04/02/21 at 02:39; Stop 04/02/21 at 02:40; Status DC Prochlorperazine Edisylate (Compazine) 10 mg 1X ONCE IV ; Start 04/02/21 at 03:30; Stop 04/02/21 at 03:31; Status DC Iohexol (Omnipaque 350 Mg/ml) 100 ml 1X ONCE IV Last administered on 04/02/21at 05:13; Start 04/02/21 at 05:00; Stop 04/02/21 at 05:01; Status DC Info (CONTRAST GIVEN -- Rx MONITORING) 1 each PRN DAILY PRN MC SEE COMMENTS; Start 04/02/21 at 04:30; Stop 04/04/21 at 04:29 Piperacillin Sod/ Tazobactam Sod 4.5 gm/Sodium Chloride 100 ml @ 200 mls/hr 1X ONCE IV Last administered on 04/02/21at 05:43; Start 04/02/21 at 05:00; Stop 04/02/21 at 05:29; Status DC Ondansetron HCl (Zofran) 4 mg PRN Q8HRS PRN IV NAUSEA/VOMITING 1ST CHOICE; Start 04/02/21 at 06:15; Stop 04/03/21 at 06:14 Acetaminophen (Tylenol) 650 mg PRN Q4HRS PRN PO FEVER > 100.3'F; Start 04/02/21 at 06:15; Stop 04/03/21 at 06:14 Active Scripts Active Keppra (Levetiracetam) 500 Mg Tablet 1 Tab PO BID 30 Days Keppra (Levetiracetam) 500 Mg Tablet 1 Tab PO BID 30 Days Keppra (Levetiracetam) 500 Mg Tablet 1 Tab PO BID Augmentin 875-125 Tablet (Amoxicillin/Potassium Clav) 1 Each Tablet 1 Tab PO BID Keppra (Levetiracetam) 500 Mg Tablet 1 Tab PO BID Allergies Allergies: Coded Allergies: No Known Drug Allergies (Unverified , 03/02/19) ROS Review of System GENERAL: No history of weight change, weakness or fevers. SKIN: No bruising, hair changes or rashes. EYES: No blurred, double or loss of vision. NOSE AND THROAT: No history of nosebleeds, hoarseness or sore throat. HEART: Denies chest pain, denies palpitations. LUNGS: Denies cough, hemoptysis, wheezing or shortness of breath. GASTROINTESTINAL: Denies nausea, vomiting, abdominal pain. GENITOURINARY: Denies dysuria, frequency, urgency, hematuria. NEUROLOGIC: Seizure. Denies history of numbness, tingling, tremor or weakness. PSYCHIATRIC: Denies anxiety, denies depression. ENDOCRINE: No history of heat or cold intolerance, polyuria or polydipsia. EXTREMITIES: Denies muscle weakness, joint pain, pain on walking or stiffness. Physical Exam Physical Exam General: Alert, Oriented X3, Cooperative, No acute distress HEENT: PERRLA, EOMI. Left posterior tongue laceration. Left frontal scalp hematoma. Lungs: Clear to auscultation, Normal air movement Heart: Tachycardic. No murmurs Cardiovascular: S1, S2 Abdomen: Normal bowel sounds, Soft, No tenderness Extremities: No clubbing, No cyanosis Skin: No rashes, No significant lesion Neuro: Normal speech, Normal tone, Sensation intact Psych/Mental Status: Mental status NL, Mood NL Vitals Vitals Vital Signs Date Time Temp Pulse Resp B/P (MAP) Pulse Ox O2 Delivery O2 Flow Rate FiO2 04/02/21 06:53 106 33 94 04/02/21 02:20 97.6 144/91 (108) NonRebreather Mask 97.6 Labs Labs Laboratory Tests Test 04/02/21 02:31 04/02/21 04:45 04/02/21 06:17 White Blood Count 13.6 x10^3/uL (4.0-11.0) Red Blood Count 5.69 x10^6/uL (4.30-5.70) Hemoglobin 16.6 g/dL (13.0-17.5) Hematocrit 50.2 % (39.0-53.0) Mean Corpuscular Volume 88 fL (79-100) Mean Corpuscular Hemoglobin 29 pg (25-35) Mean Corpuscular Hemoglobin Concent 33 g/dL (31-37) Red Cell Distribution Width 14.5 % (11.5-14.5) Platelet Count 218 x10^3/uL (140-400) Neutrophils (%) (Auto) 71 % (31-73) Lymphocytes (%) (Auto) 23 % (24-48) Monocytes (%) (Auto) 6 % (0-9) Eosinophils (%) (Auto) 0 % (0-3) Basophils (%) (Auto) 1 % (0-3) Neutrophils # (Auto) 9.7 x10^3/uL (1.8-7.7) Lymphocytes # (Auto) 3.1 x10^3/uL (1.0-4.8) Monocytes # (Auto) 0.8 x10^3/uL (0.0-1.1) Eosinophils # (Auto) 0.0 x10^3/uL (0.0-0.7) Basophils # (Auto) 0.1 x10^3/uL (0.0-0.2) Sodium Level 141 mmol/L (136-145) Potassium Level 3.7 mmol/L (3.5-5.1) Chloride Level 103 mmol/L (98-107) Carbon Dioxide Level 14 mmol/L (21-32) Anion Gap 24 (6-14) Blood Urea Nitrogen 15 mg/dL (8-26) Creatinine 1.5 mg/dL (0.7-1.3) Estimated GFR (Cockcroft-Gault) 65.2 BUN/Creatinine Ratio 10 (6-20) Glucose Level 175 mg/dL (70-99) Lactic Acid Level 11.2 mmol/L (0.4-2.0) Calcium Level 9.1 mg/dL (8.5-10.1) Total Bilirubin 0.6 mg/dL (0.2-1.0) Aspartate Amino Transf (AST/SGOT) 55 U/L (15-37) Alanine Aminotransferase (ALT/SGPT) 40 U/L (16-63) Alkaline Phosphatase 87 U/L (46-116) Ammonia 40 mcmol/L (11-34) Total Protein 7.7 g/dL (6.4-8.2) Albumin 4.0 g/dL (3.4-5.0) Albumin/Globulin Ratio 1.1 (1.0-1.7) Urine Opiates Screen Neg (NEG) Urine Methadone Screen Neg (NEG) Urine Barbiturates Neg (NEG) Urine Phencyclidine Screen Neg (NEG) Urine Amphetamine/Methamphetamine Neg (NEG) Urine Benzodiazepines Screen Neg (NEG) Urine Cocaine Screen Neg (NEG) Urine Cannabinoids Screen Pos (NEG) Urine Ethyl Alcohol Neg (NEG) O2 Saturation 87 % (92-99) Arterial Blood pH 7.32 (7.35-7.45) Arterial Blood pCO2 at Patient Temp 39 mmHg (35-46) Arterial Blood pO2 at Patient Temp 56 mmHg (85-108) Arterial Blood HCO3 19 mmol/L (21-28) Arterial Blood Base Excess -6 mmol/L (-3-3) FiO2 100 Laboratory Tests Test 04/02/21 02:31 04/02/21 04:45 04/02/21 06:17 White Blood Count 13.6 x10^3/uL (4.0-11.0) Red Blood Count 5.69 x10^6/uL (4.30-5.70) Hemoglobin 16.6 g/dL (13.0-17.5) Hematocrit 50.2 % (39.0-53.0) Mean Corpuscular Volume 88 fL (79-100) Mean Corpuscular Hemoglobin 29 pg (25-35) Mean Corpuscular Hemoglobin Concent 33 g/dL (31-37) Red Cell Distribution Width 14.5 % (11.5-14.5) Platelet Count 218 x10^3/uL (140-400) Neutrophils (%) (Auto) 71 % (31-73) Lymphocytes (%) (Auto) 23 % (24-48) Monocytes (%) (Auto) 6 % (0-9) Eosinophils (%) (Auto) 0 % (0-3) Basophils (%) (Auto) 1 % (0-3) Neutrophils # (Auto) 9.7 x10^3/uL (1.8-7.7) Lymphocytes # (Auto) 3.1 x10^3/uL (1.0-4.8) Monocytes # (Auto) 0.8 x10^3/uL (0.0-1.1) Eosinophils # (Auto) 0.0 x10^3/uL (0.0-0.7) Basophils # (Auto) 0.1 x10^3/uL (0.0-0.2) Sodium Level 141 mmol/L (136-145) Potassium Level 3.7 mmol/L (3.5-5.1) Chloride Level 103 mmol/L (98-107) Carbon Dioxide Level 14 mmol/L (21-32) Anion Gap 24 (6-14) Blood Urea Nitrogen 15 mg/dL (8-26) Creatinine 1.5 mg/dL (0.7-1.3) Estimated GFR (Cockcroft-Gault) 65.2 BUN/Creatinine Ratio 10 (6-20) Glucose Level 175 mg/dL (70-99) Lactic Acid Level 11.2 mmol/L (0.4-2.0) Calcium Level 9.1 mg/dL (8.5-10.1) Total Bilirubin 0.6 mg/dL (0.2-1.0) Aspartate Amino Transf (AST/SGOT) 55 U/L (15-37) Alanine Aminotransferase (ALT/SGPT) 40 U/L (16-63) Alkaline Phosphatase 87 U/L (46-116) Ammonia 40 mcmol/L (11-34) Total Protein 7.7 g/dL (6.4-8.2) Albumin 4.0 g/dL (3.4-5.0) Albumin/Globulin Ratio 1.1 (1.0-1.7) Urine Opiates Screen Neg (NEG) Urine Methadone Screen Neg (NEG) Urine Barbiturates Neg (NEG) Urine Phencyclidine Screen Neg (NEG) Urine Amphetamine/Methamphetamine Neg (NEG) Urine Benzodiazepines Screen Neg (NEG) Urine Cocaine Screen Neg (NEG) Urine Cannabinoids Screen Pos (NEG) Urine Ethyl Alcohol Neg (NEG) O2 Saturation 87 % (92-99) Arterial Blood pH 7.32 (7.35-7.45) Arterial Blood pCO2 at Patient Temp 39 mmHg (35-46) Arterial Blood pO2 at Patient Temp 56 mmHg (85-108) Arterial Blood HCO3 19 mmol/L (21-28) Arterial Blood Base Excess -6 mmol/L (-3-3) FiO2 100 Images Images CHEST AP ONLY EXAMINATION: XR CHEST 1V CLINICAL HISTORY: Shortness of breath EXAM DATE/TIME: 04/02/2021 3:03 AM COMPARISON: 02/25/2020 FINDINGS: Lines, Tubes, and Devices: None. Cardiomediastinal Silhouette: Within normal limits. Lungs and Pleura: Diffuse patchy opacities throughout the bilateral lungs. No evidence of pleural effusion or pneumothorax. Bones and Soft Tissues: No acute osseous abnormality. IMPRESSION: Diffuse patchy bilateral airspace disease. CT HEAD WO CONTRAST EXAMINATION: CT HEAD/BRAIN WO (CT HEAD WITHOUT IV CONTRAST) CLINICAL HISTORY: SEIZURE FALL HEAD CONTUSION TECHNIQUE: Serial axial images without IV contrast were obtained from the vertex to the foramen magnum. CT Dose Reduction Employed: One or more of the following individualized dose reduction techniques were utilized for this examination: 1. Automated exposure control 2. Adjustment of the mA and/or kV according to patient size 3. Use of iterative reconstruction technique. COMPARISON: None FINDINGS: Acute Change: Mild subcutaneous edema/small hematoma along the inferior anterolateral left frontal scalp. No evidence of an acute infarct or other acute parenchymal process. Hemorrhage: No evidence of acute intracranial hemorrhage. Mass Lesion/Mass Effect: No evidence of intracranial mass or extraaxial fluid collection. No significant mass effect. Parenchyma: No significant volume loss. Parenchyma otherwise within normal limits for age. Ventricles: Ventricles within normal limits for age. Paranasal Sinuses and Skull Base: Small mucous retention cysts/polyp in the sphenoid sinus. Visualized skull base and soft tissues unremarkable. IMPRESSION: Mild subcutaneous edema/small hematoma along the left frontal scalp. No evidence of acute intracranial abnormality. CT ANGIOGRAPHY CHEST EXAMINATION: CTA CHEST CLINICAL HISTORY: Dyspnea, hypoxia Technique: Spiral CT acquisition of the chest from the thoracic inlet to the upper abdomen following IV contrast with coronal and sagittal reformatted images also provided for review. 3D maximum intensity projection images also performed. CT Dose Reduction Employed: One or more of the following individualized dose reduction techniques were utilized for this examination: 1. Automated exposure control 2. Adjustment of the mA and/or kV according to patient size 3. Use of iterative reconstruction technique. Comparison: Chest radiograph same day FINDINGS: Pulmonary Vasculature: No evidence of main, lobar, or segmental pulmonary arterial thrombus. Lung Parenchyma, Pleura, and Airways: Diffuse patchy opacities throughout bilateral lungs. No pleural effusion. Central airways patent. Lower Neck, Lymph Nodes, and Mediastinum: Visualized thyroid gland within normal limits. No mediastinal, hilar, or axillary lymphadenopathy. Heart, Pericardium, and Thoracic Vessels: Borderline cardiomegaly. No pericardial effusion. Thoracic aorta within normal limits. No coronary artery atherosclerotic calcifications are noted, although the study is not optimized for coronary assessment. Bones and Soft Tissues: No evidence of acute osseous abnormality. Upper Abdomen: Diffuse hypoattenuation of the hepatic parenchyma, compatible with steatosis. IMPRESSION: No evidence of main, lobar, or segmental pulmonary embolism. Diffuse patchy opacities throughout the bilateral lungs, possibly related to alveolar edema or atypical/viral pneumonia. Correlate clinically. Borderline cardiomegaly. VTE Prophylaxis Ordered VTE Prophylaxis Devices: Yes VTE Pharmacological Prophylaxi: No Assessment/Plan Assessment/Plan Seizure Atypical pneumonia Acute respiratory failure with hypoxia EMEKA due to vasomotor nephropathy Lactic acidosis Medication noncompliance Plan: Consultation was placed to pulmonology in the ED Treated with IV antibiotics and placed on nonrebreather in ED Will resume home Keppra CTA on admission diffuse patchy opacities throughout the bilateral lungs, possibly related to atypical/viral pneumonia Barring pulmonology recommendations, patient may be able to discharge on doxycycline when stable. FEN - Cardiac diet PPX - SCDs FULL CODE Dispo - inpatient for above Justifications for Admission Other Justification CHARLIE TOLLIVER MD Apr 02, 2021 07:58
[2021-04-02] MEDS ORDERED: ZOLPIDEM 5 MG TABLET. PO PRN (08:00)
[2021-04-02] MEDS ORDERED: BISACODYL 10 MG SUPP.RECT. PR PRN (08:00)
[2021-04-02] MEDS ORDERED: ONDANSETRON PF 4 MG/2 ML VIAL. IVP PRN (08:00)
[2021-04-02] MEDS ORDERED: MAGNESIUM HYDROXIDE 2,400 MG/30 ML ORAL.SUSP. PO PRN (08:00)
[2021-04-02] MEDS ORDERED: MAG HYDROX/ALUMINUM HYD/SIMETH 30 ML ORAL.SUSP PO PRN (08:00)
[2021-04-02] MEDS ORDERED: CALCIUM CARBONATE 500 MG TAB.CHEW PO PRN (08:00)
[2021-04-02] MEDS ORDERED: MORPHINE SULFATE 2 MG/ML VIAL. IV PRN (08:15)
[2021-04-02] MEDS ORDERED: MORPHINE SULFATE 4 MG/ML VIAL. IV PRN (08:15)
[2021-04-02 08:27] VITALS: BP 132/82
[2021-04-02] MEDS ORDERED: DOXYCYCLINE HYCLATE 100 MG TABLET PO SCH (09:00)
[2021-04-02] MEDS ORDERED: levETIRAcetam 500 MG TABLET PO SCH (09:00)
[2021-04-02 09:05] LABS: CALCIUM 8.5 mg/dL (8.5-10.1); CREATININE 1.3 mg/dL (0.7-1.3); GFR 76.9; POTASSIUM 4.6 mmol/L (3.5-5.1)
[2021-04-02 11:06] VITALS: BP 151/83
--- NOTE | 2021-04-02 11:07 | PDOC ---
PULMONARY PROGRESS NOTES DATE: 04/02/21 TIME: 11:07 Vitals Vital Signs Date Time Temp Pulse Resp B/P (MAP) Pulse Ox O2 Delivery O2 Flow Rate FiO2 04/02/21 11:06 98.9 110 20 151/83 (105) 92 Room Air 98.9 Labs Laboratory Tests Test 04/02/21 02:31 04/02/21 04:45 04/02/21 06:17 04/02/21 08:40 White Blood Count 13.6 x10^3/uL (4.0-11.0) Red Blood Count 5.69 x10^6/uL (4.30-5.70) Hemoglobin 16.6 g/dL (13.0-17.5) Hematocrit 50.2 % (39.0-53.0) Mean Corpuscular Volume 88 fL (79-100) Mean Corpuscular Hemoglobin 29 pg (25-35) Mean Corpuscular Hemoglobin Concent 33 g/dL (31-37) Red Cell Distribution Width 14.5 % (11.5-14.5) Platelet Count 218 x10^3/uL (140-400) Neutrophils (%) (Auto) 71 % (31-73) Lymphocytes (%) (Auto) 23 % (24-48) Monocytes (%) (Auto) 6 % (0-9) Eosinophils (%) (Auto) 0 % (0-3) Basophils (%) (Auto) 1 % (0-3) Neutrophils # (Auto) 9.7 x10^3/uL (1.8-7.7) Lymphocytes # (Auto) 3.1 x10^3/uL (1.0-4.8) Monocytes # (Auto) 0.8 x10^3/uL (0.0-1.1) Eosinophils # (Auto) 0.0 x10^3/uL (0.0-0.7) Basophils # (Auto) 0.1 x10^3/uL (0.0-0.2) Sodium Level 141 mmol/L (136-145) 141 mmol/L (136-145) Potassium Level 3.7 mmol/L (3.5-5.1) 4.6 mmol/L (3.5-5.1) Chloride Level 103 mmol/L (98-107) 107 mmol/L (98-107) Carbon Dioxide Level 14 mmol/L (21-32) 22 mmol/L (21-32) Anion Gap 24 (6-14) 12 (6-14) Blood Urea Nitrogen 15 mg/dL (8-26) 12 mg/dL (8-26) Creatinine 1.5 mg/dL (0.7-1.3) 1.3 mg/dL (0.7-1.3) Estimated GFR (Cockcroft-Gault) 65.2 76.9 BUN/Creatinine Ratio 10 (6-20) Glucose Level 175 mg/dL (70-99) 118 mg/dL (70-99) Lactic Acid Level 11.2 mmol/L (0.4-2.0) 1.0 mmol/L (0.4-2.0) Calcium Level 9.1 mg/dL (8.5-10.1) 8.5 mg/dL (8.5-10.1) Total Bilirubin 0.6 mg/dL (0.2-1.0) Aspartate Amino Transf (AST/SGOT) 55 U/L (15-37) Alanine Aminotransferase (ALT/SGPT) 40 U/L (16-63) Alkaline Phosphatase 87 U/L (46-116) Ammonia 40 mcmol/L (11-34) Total Protein 7.7 g/dL (6.4-8.2) Albumin 4.0 g/dL (3.4-5.0) Albumin/Globulin Ratio 1.1 (1.0-1.7) Urine Opiates Screen Neg (NEG) Urine Methadone Screen Neg (NEG) Urine Barbiturates Neg (NEG) Urine Phencyclidine Screen Neg (NEG) Urine Amphetamine/Methamphetamine Neg (NEG) Urine Benzodiazepines Screen Neg (NEG) Urine Cocaine Screen Neg (NEG) Urine Cannabinoids Screen Pos (NEG) Urine Ethyl Alcohol Neg (NEG) O2 Saturation 87 % (92-99) Arterial Blood pH 7.32 (7.35-7.45) Arterial Blood pCO2 at Patient Temp 39 mmHg (35-46) Arterial Blood pO2 at Patient Temp 56 mmHg (85-108) Arterial Blood HCO3 19 mmol/L (21-28) Arterial Blood Base Excess -6 mmol/L (-3-3) FiO2 100 Laboratory Tests Test 04/02/21 02:31 04/02/21 04:45 04/02/21 06:17 04/02/21 08:40 White Blood Count 13.6 x10^3/uL (4.0-11.0) Red Blood Count 5.69 x10^6/uL (4.30-5.70) Hemoglobin 16.6 g/dL (13.0-17.5) Hematocrit 50.2 % (39.0-53.0) Mean Corpuscular Volume 88 fL (79-100) Mean Corpuscular Hemoglobin 29 pg (25-35) Mean Corpuscular Hemoglobin Concent 33 g/dL (31-37) Red Cell Distribution Width 14.5 % (11.5-14.5) Platelet Count 218 x10^3/uL (140-400) Neutrophils (%) (Auto) 71 % (31-73) Lymphocytes (%) (Auto) 23 % (24-48) Monocytes (%) (Auto) 6 % (0-9) Eosinophils (%) (Auto) 0 % (0-3) Basophils (%) (Auto) 1 % (0-3) Neutrophils # (Auto) 9.7 x10^3/uL (1.8-7.7) Lymphocytes # (Auto) 3.1 x10^3/uL (1.0-4.8) Monocytes # (Auto) 0.8 x10^3/uL (0.0-1.1) Eosinophils # (Auto) 0.0 x10^3/uL (0.0-0.7) Basophils # (Auto) 0.1 x10^3/uL (0.0-0.2) Sodium Level 141 mmol/L (136-145) 141 mmol/L (136-145) Potassium Level 3.7 mmol/L (3.5-5.1) 4.6 mmol/L (3.5-5.1) Chloride Level 103 mmol/L (98-107) 107 mmol/L (98-107) Carbon Dioxide Level 14 mmol/L (21-32) 22 mmol/L (21-32) Anion Gap 24 (6-14) 12 (6-14) Blood Urea Nitrogen 15 mg/dL (8-26) 12 mg/dL (8-26) Creatinine 1.5 mg/dL (0.7-1.3) 1.3 mg/dL (0.7-1.3) Estimated GFR (Cockcroft-Gault) 65.2 76.9 BUN/Creatinine Ratio 10 (6-20) Glucose Level 175 mg/dL (70-99) 118 mg/dL (70-99) Lactic Acid Level 11.2 mmol/L (0.4-2.0) 1.0 mmol/L (0.4-2.0) Calcium Level 9.1 mg/dL (8.5-10.1) 8.5 mg/dL (8.5-10.1) Total Bilirubin 0.6 mg/dL (0.2-1.0) Aspartate Amino Transf (AST/SGOT) 55 U/L (15-37) Alanine Aminotransferase (ALT/SGPT) 40 U/L (16-63) Alkaline Phosphatase 87 U/L (46-116) Ammonia 40 mcmol/L (11-34) Total Protein 7.7 g/dL (6.4-8.2) Albumin 4.0 g/dL (3.4-5.0) Albumin/Globulin Ratio 1.1 (1.0-1.7) Urine Opiates Screen Neg (NEG) Urine Methadone Screen Neg (NEG) Urine Barbiturates Neg (NEG) Urine Phencyclidine Screen Neg (NEG) Urine Amphetamine/Methamphetamine Neg (NEG) Urine Benzodiazepines Screen Neg (NEG) Urine Cocaine Screen Neg (NEG) Urine Cannabinoids Screen Pos (NEG) Urine Ethyl Alcohol Neg (NEG) O2 Saturation 87 % (92-99) Arterial Blood pH 7.32 (7.35-7.45) Arterial Blood pCO2 at Patient Temp 39 mmHg (35-46) Arterial Blood pO2 at Patient Temp 56 mmHg (85-108) Arterial Blood HCO3 19 mmol/L (21-28) Arterial Blood Base Excess -6 mmol/L (-3-3) FiO2 100 Medications Active Scripts Medications Dose Route/Sig Max Daily Dose Days Date Category Keppra (Levetiracetam) 500 Mg Tablet 1 Tab PO BID 30 02/25/21 Rx Keppra (Levetiracetam) 500 Mg Tablet 1 Tab PO BID 30 12/15/20 Rx Keppra (Levetiracetam) 500 Mg Tablet 1 Tab PO BID 07/17/20 Rx Augmentin 875-125 Tablet (Amoxicillin/Potassium Clav) 1 Each Tablet 1 Tab PO BID 04/23/20 Rx Keppra (Levetiracetam) 500 Mg Tablet 1 Tab PO BID 02/25/20 Rx Impression . Patient seen in the ER, hypoxemic respiratory failure secondary to aspiration Seizure disorder Patient wishes to be discharged AGAINST MEDICAL ADVICE I went over all the possible consequences of being discharged with a low oxygen level including passing out, seizure resulting brain trauma and subsequent possible hemorrhagic stroke. Or per minute anoxic brain injury. Patient understood all of the consequences. He is awake alert, he is able to make adequate informed decisions. I literally spent 20 minutes trying to convince the patient to stay. He states that he is going to sign himself out AMA. He needs to go see his kids, kids are 6 and 4 years old. Apparently he is going through a divorce. I also informed him today we are unable to discharge him home with oxygen since 02 tanks do not go above 8 - 10 liters. RN was at the bedside throughout the 20-minute conversation. Discussed with NATHALIE Luna MD Apr 02, 2021 11:07
[2021-04-02 15:16] VITALS: BP 142/70
--- NOTE | 2021-04-02 16:00 | NUR ---
Previously, patient has maintained 90-92% sat on nonrebreather. When patient took off O2, sat to 88-90%, then with more conversation down to 79, instructed to put O2 back on, sat to low 90's immediately. Occ non-productive cough (had bloody sputum in am) Patient alert and oriented, no signs of seizure activity noted. Patient insistant that he wants to go home, at first saying that he needed to go to work tomorrow, and also then that he really wants to be able to spend some time with his children before their mother picks them up tonight, relating that he doesn't ge to see them often, that it is very difficult to get mother to let them visit, and that he was only getting to see them now because it was Father's Day yesterday. At this time Covid result pending. Informed patient that he can not drive for at least 6 months after seizures under control and released by his physician. Also instructed that he has to quarantine at least until COVID test results come back negative.
--- NOTE | 2021-04-02 17:51 | PDOC3 ---
Discharge Summary Visit Information Date of Admission: Apr 02, 2021 Date of Discharge: Apr 02, 2021 Final Diagnosis Problems Medical Problems: (1) Cough Status: Acute (2) Pneumonia Status: Acute (3) Seizure Status: Acute Brief Hospital Course Allergies Allergies Coded Allergies Type Severity Reaction Last Updated Verified No Known Drug Allergies 03/02/19 No Vital Signs Vital Signs Date Time Temp Pulse Resp B/P (MAP) Pulse Ox O2 Delivery O2 Flow Rate FiO2 04/02/21 15:16 98.8 98 20 142/70 (94) 93 Room Air 98.8 Lab Results Laboratory Tests Test 04/02/21 02:31 04/02/21 04:10 04/02/21 04:45 04/02/21 06:17 White Blood Count 13.6 x10^3/uL (4.0-11.0) Red Blood Count 5.69 x10^6/uL (4.30-5.70) Hemoglobin 16.6 g/dL (13.0-17.5) Hematocrit 50.2 % (39.0-53.0) Mean Corpuscular Volume 88 fL (79-100) Mean Corpuscular Hemoglobin 29 pg (25-35) Mean Corpuscular Hemoglobin Concent 33 g/dL (31-37) Red Cell Distribution Width 14.5 % (11.5-14.5) Platelet Count 218 x10^3/uL (140-400) Neutrophils (%) (Auto) 71 % (31-73) Lymphocytes (%) (Auto) 23 % (24-48) Monocytes (%) (Auto) 6 % (0-9) Eosinophils (%) (Auto) 0 % (0-3) Basophils (%) (Auto) 1 % (0-3) Neutrophils # (Auto) 9.7 x10^3/uL (1.8-7.7) Lymphocytes # (Auto) 3.1 x10^3/uL (1.0-4.8) Monocytes # (Auto) 0.8 x10^3/uL (0.0-1.1) Eosinophils # (Auto) 0.0 x10^3/uL (0.0-0.7) Basophils # (Auto) 0.1 x10^3/uL (0.0-0.2) Sodium Level 141 mmol/L (136-145) Potassium Level 3.7 mmol/L (3.5-5.1) Chloride Level 103 mmol/L (98-107) Carbon Dioxide Level 14 mmol/L (21-32) Anion Gap 24 (6-14) Blood Urea Nitrogen 15 mg/dL (8-26) Creatinine 1.5 mg/dL (0.7-1.3) Estimated GFR (Cockcroft-Gault) 65.2 BUN/Creatinine Ratio 10 (6-20) Glucose Level 175 mg/dL (70-99) Lactic Acid Level 11.2 mmol/L (0.4-2.0) Calcium Level 9.1 mg/dL (8.5-10.1) Total Bilirubin 0.6 mg/dL (0.2-1.0) Aspartate Amino Transf (AST/SGOT) 55 U/L (15-37) Alanine Aminotransferase (ALT/SGPT) 40 U/L (16-63) Alkaline Phosphatase 87 U/L (46-116) Ammonia 40 mcmol/L (11-34) Total Protein 7.7 g/dL (6.4-8.2) Albumin 4.0 g/dL (3.4-5.0) Albumin/Globulin Ratio 1.1 (1.0-1.7) Coronavirus (COVID-19)(PCR) Negative (NEGATIVE) Urine Opiates Screen Neg (NEG) Urine Methadone Screen Neg (NEG) Urine Barbiturates Neg (NEG) Urine Phencyclidine Screen Neg (NEG) Urine Amphetamine/Methamphetamine Neg (NEG) Urine Benzodiazepines Screen Neg (NEG) Urine Cocaine Screen Neg (NEG) Urine Cannabinoids Screen Pos (NEG) Urine Ethyl Alcohol Neg (NEG) O2 Saturation 87 % (92-99) Arterial Blood pH 7.32 (7.35-7.45) Arterial Blood pCO2 at Patient Temp 39 mmHg (35-46) Arterial Blood pO2 at Patient Temp 56 mmHg (85-108) Arterial Blood HCO3 19 mmol/L (21-28) Arterial Blood Base Excess -6 mmol/L (-3-3) FiO2 100 Test 04/02/21 08:40 Sodium Level 141 mmol/L (136-145) Potassium Level 4.6 mmol/L (3.5-5.1) Chloride Level 107 mmol/L (98-107) Carbon Dioxide Level 22 mmol/L (21-32) Anion Gap 12 (6-14) Blood Urea Nitrogen 12 mg/dL (8-26) Creatinine 1.3 mg/dL (0.7-1.3) Estimated GFR (Cockcroft-Gault) 76.9 Glucose Level 118 mg/dL (70-99) Lactic Acid Level 1.0 mmol/L (0.4-2.0) Calcium Level 8.5 mg/dL (8.5-10.1) Laboratory Tests Test 04/02/21 02:31 04/02/21 04:10 04/02/21 04:45 04/02/21 06:17 White Blood Count 13.6 x10^3/uL (4.0-11.0) Red Blood Count 5.69 x10^6/uL (4.30-5.70) Hemoglobin 16.6 g/dL (13.0-17.5) Hematocrit 50.2 % (39.0-53.0) Mean Corpuscular Volume 88 fL (79-100) Mean Corpuscular Hemoglobin 29 pg (25-35) Mean Corpuscular Hemoglobin Concent 33 g/dL (31-37) Red Cell Distribution Width 14.5 % (11.5-14.5) Platelet Count 218 x10^3/uL (140-400) Neutrophils (%) (Auto) 71 % (31-73) Lymphocytes (%) (Auto) 23 % (24-48) Monocytes (%) (Auto) 6 % (0-9) Eosinophils (%) (Auto) 0 % (0-3) Basophils (%) (Auto) 1 % (0-3) Neutrophils # (Auto) 9.7 x10^3/uL (1.8-7.7) Lymphocytes # (Auto) 3.1 x10^3/uL (1.0-4.8) Monocytes # (Auto) 0.8 x10^3/uL (0.0-1.1) Eosinophils # (Auto) 0.0 x10^3/uL (0.0-0.7) Basophils # (Auto) 0.1 x10^3/uL (0.0-0.2) Sodium Level 141 mmol/L (136-145) Potassium Level 3.7 mmol/L (3.5-5.1) Chloride Level 103 mmol/L (98-107) Carbon Dioxide Level 14 mmol/L (21-32) Anion Gap 24 (6-14) Blood Urea Nitrogen 15 mg/dL (8-26) Creatinine 1.5 mg/dL (0.7-1.3) Estimated GFR (Cockcroft-Gault) 65.2 BUN/Creatinine Ratio 10 (6-20) Glucose Level 175 mg/dL (70-99) Lactic Acid Level 11.2 mmol/L (0.4-2.0) Calcium Level 9.1 mg/dL (8.5-10.1) Total Bilirubin 0.6 mg/dL (0.2-1.0) Aspartate Amino Transf (AST/SGOT) 55 U/L (15-37) Alanine Aminotransferase (ALT/SGPT) 40 U/L (16-63) Alkaline Phosphatase 87 U/L (46-116) Ammonia 40 mcmol/L (11-34) Total Protein 7.7 g/dL (6.4-8.2) Albumin 4.0 g/dL (3.4-5.0) Albumin/Globulin Ratio 1.1 (1.0-1.7) Coronavirus (COVID-19)(PCR) Negative (NEGATIVE) Urine Opiates Screen Neg (NEG) Urine Methadone Screen Neg (NEG) Urine Barbiturates Neg (NEG) Urine Phencyclidine Screen Neg (NEG) Urine Amphetamine/Methamphetamine Neg (NEG) Urine Benzodiazepines Screen Neg (NEG) Urine Cocaine Screen Neg (NEG) Urine Cannabinoids Screen Pos (NEG) Urine Ethyl Alcohol Neg (NEG) O2 Saturation 87 % (92-99) Arterial Blood pH 7.32 (7.35-7.45) Arterial Blood pCO2 at Patient Temp 39 mmHg (35-46) Arterial Blood pO2 at Patient Temp 56 mmHg (85-108) Arterial Blood HCO3 19 mmol/L (21-28) Arterial Blood Base Excess -6 mmol/L (-3-3) FiO2 100 Test 04/02/21 08:40 Sodium Level 141 mmol/L (136-145) Potassium Level 4.6 mmol/L (3.5-5.1) Chloride Level 107 mmol/L (98-107) Carbon Dioxide Level 22 mmol/L (21-32) Anion Gap 12 (6-14) Blood Urea Nitrogen 12 mg/dL (8-26) Creatinine 1.3 mg/dL (0.7-1.3) Estimated GFR (Cockcroft-Gault) 76.9 Glucose Level 118 mg/dL (70-99) Lactic Acid Level 1.0 mmol/L (0.4-2.0) Calcium Level 8.5 mg/dL (8.5-10.1) Brief Hospital Course Mr. Ames is a 35 old male who presented with seizure, bilateral community- acquired pneumonia (possibly gram-negative or possibly gram-positive), and acute respiratory failure with hypoxia. Patient initially presented due to seizure- like activity, and admits to noncompliance with his Keppra medication. He states his last took his Keppra medication roughly 2 weeks ago. Chest pain examination was concerning for bilateral atypical pneumonia. He was treated with IV antibiotics and consultation was placed to pulmonology. In my opinion, seizure was secondary to medication noncompliance in setting of acute pulmonary infection. Later in the afternoon of admission I was called to the patient's bedside because he is requesting to leave AMA. Had lengthy discussion with jennifer rubio about the risks of leaving AGAINST MEDICAL ADVICE, including worsening hypoxia, worsening pulmonary infection, and including potentially . Patient is ANO x3, state he understands the risk factors and is still choosing to leave AGAINST MEDICAL ADVICE. Discussed with RN. Discharge Information Condition at Discharge: Stable Disposition/Orders: Other (Left AGAINST MEDICAL ADVICE) Scheduled Amoxicillin/Potassium Clav (Augmentin 875-125 Tablet) 1 Each Tablet, 1 TAB PO BID, #14 Prescribed by: LUIS MCCABE D.O. on 04/23/20 1126 Levetiracetam (Keppra) 500 Mg Tablet, 1 TAB PO BID, #30 Ref 0 Prescribed by: Tabitha Starr APRN on 02/25/20 1450 Last Action: Continued on 04/02/21 0739 by CHARLIE TOLLIVER MD Levetiracetam (Keppra) 500 Mg Tablet, 1 TAB PO BID, #90 Ref 0 Prescribed by: Tabitha Starr APRN on 07/17/20 1645 Levetiracetam (Keppra) 500 Mg Tablet, 1 TAB PO BID for 30 Days, #60 Ref 0 Prescribed by: JARED FRIEDMAN DO on 12/15/20 0415 Levetiracetam (Keppra) 500 Mg Tablet, 1 TAB PO BID for 30 Days, #60 Ref 0 Prescribed by: KAMILA RUBIO D.O. on 02/25/21 0442 Justicifation of Admission Dx: Justifications for Admission: Justification of Admission Dx: N/A CHARLIE TOLLIVER MD Apr 02, 2021 17:51
--- NOTE | 2021-04-02 18:30 | NUR ---
Patient has O2 off at this time, sat 99%. Patient related he is able to take deep breaths much easier now. Patient is leaving AMA, girlfriend is taking him home. Dr Bishop has been back to talk with him, advising him to remain in hospital, patient demeanor calm, expresses appreciation of concern for his health and safety, but insists that he is going to go home, and will come back if he needs to. Patient given prescription for Doxycycline 100mg po bid x [address] provided [address] Bishop. Copy of prescription with chart. Nurse had spoke with girlfriend per phone prior to coming up (Pt handed nurse the phone to talk to her), informing that his leaving was against medical advise. She verbalized understanding and was going to talk with him, but was unable to sway him in his decision. Patient encouraged to limit activity, stay out of the heat, get the prescription filled today and start taking tonight. Encouraged patient to take his seizure medication regularly as ordered, and not to drive. COVID test results received, and they were negative. Patient does appear to have significantly easier time with breathing at this time, sat rechecked on room air, was 99%. Patient has indicated that he would return to hospital for any worsening of condition (but he wants to see his kids first).
--- NOTE | 2021-04-03 12:00 | NUR ---
IP: Informed pt of negative COVID test. Pt verbalized understanding.
--- NOTE | 2021-04-03 21:56 | CONS ---
DATE OF CONSULTATION: 04/02/2021 ATTENDING PHYSICIAN: Dr. Bishop. REASON FOR CONSULTATION: The patient is seen in pulmonary consultation at the request of Dr. Bishop for hypoxemia, respiratory failure, abnormal chest x-ray. HISTORY OF PRESENT ILLNESS: The patient was seen in the emergency room on 04/02 approximately 4:30 p.m. He presented to the Emergency Department with seizure activity. He was noncompliant with his seizure medication. There was also evidence of emesis. He was coughing up some blood. O2 saturation initially on room air was 88%. He was evaluated, had a chest x-ray, which I personally reviewed, revealing bilateral pulmonary infiltrates compatible with possibly aspiration pneumonitis. He had a CT angiogram confirming no evidence of pulmonary embolism. There was patchy opacities bilaterally. I went to see the patient in the emergency room, he had taken off his oxygen and wanted to go home. Apparently, he was undergoing a divorce. He had not seen his kids for quite some time. As a result of father's Day, he was scheduled to see his kids. He was adamant about leaving despite the fact that he was short of breath and required oxygen. I spent approximately 20 minutes reviewing the possible complications of leaving against medical advice with low oxygen level including having a new seizure, driving and causing a motor vehicle accident. With that being said, the patient did end up leaving against medical advice. PAST MEDICAL HISTORY: Seizure. He has a history of noncompliance with his medication. PAST SURGICAL HISTORY: No surgical history. SOCIAL HISTORY: He smokes. REVIEW OF SYSTEMS: As indicated above, otherwise other systems were reviewed and negative. PHYSICAL EXAMINATION: GENERAL: The patient was in the Emergency Department, I placed oxygen back on him, his saturation solomon to 95%; when he was off of oxygen, it was below 88%. HEENT: Eyes, the sclerae were nonicteric. NECK: Jugular venous distention was not elevated. LUNGS: Scattered rhonchi. CARDIOVASCULAR: Regular rate and rhythm with S1, S2, no S3. ABDOMEN: Soft, nontender. EXTREMITIES: No clubbing, cyanosis or edema. LABORATORY DATA: White count was 13,000, hemoglobin and hematocrit were noted. Electrolytes were noted. His lactic acid level initially was elevated. Arterial blood gas pH of 7.32, PaCO2 of 39, pO2 of 56. Serology for SARS-CoV-2 was negative. Chest x-ray and CT angiogram reviewed as indicated above. ASSESSMENT: 1. Acute hypoxemic respiratory failure. 2. Acute pneumonitis secondary to aspiration pneumonia. 3. Seizure disorder, patient is noncompliant with Keppra. 4. Hypoxemia related to above. 5. Positive toxicology screen for cannabinoids. 6. Leukocytosis. PLAN: As indicated above. I strongly recommended that the patient stay and be admitted to the hospital, so we could adequately treat him. Once again, the patient declined and signed himself out against medical advice despite efforts and our input on possible complications of being discharged home and not adequately being treated. The patient was awake, alert, following commands and understood exactly what we were informing him. He did make a consent decision. I do appreciate the privilege in sharing in the patient's care. FELICIANO KEEN: Alban TID: [id number]
== END 2021-04-02 06:34 | disposition home or self-care (01) ==
LOC: ER 02:20 → UNDOADMIN 05:43 → ED HOLD 05:43 → ER 06:34 → ED HOLD 08:11
DX: J18.9 Pneumonia, unspecified organism (principal); Z20.822 Contact with and (suspected) exposure to COVID-19; R56.9 Unspecified convulsions
CPT/HCPCS: 36415; 36600; 70450; 71045; 71275; 80048; 80053; 80307; 82140; 82805; 83605; 85025; 87040; 93005; 96361; 96365; 96375; 96376; 99291; J2405; J2543; J7030; Q9967; U0003

== ENCOUNTER 2021-05-14 05:58 | Emergency (ER) | payer SELFPAY ==
[~2021-05-14] VITALS: Ht 165.1 cm; Wt 62.0 kg
[2021-05-14] MEDS ORDERED: levETIRAcetam 1,000 MG in IV DEXTROSE 5% 100ML 100 ML IV ONE (06:30)
[2021-05-14] MEDS ORDERED: ONDANSETRON PF 4 MG/2 ML VIAL. IVP ONE (07:00)
--- NOTE | 2021-05-14 08:03 | ED.ADGEN ---
Past Medical History Past Medical History: Seizure Additional Past Medical Histor: NON-COMPLIANT Past Surgical History: No Surgical History Smoking Status: Current Every Day Smoker Alcohol Use: None Drug Use: None General Adult EDM: Chief Complaint: SEIZURE HPI: HPI: Patient is a 35-year-old male with past medical history of epilepsy and noncompliance presents to the emergency room after having 90 second seizure. Upon arrival patient is postictal. He has not been taking his Keppra as prescribed. History is limited secondary to postictal state. Review of Systems: Review of Systems: Complete ROS is negative unless otherwise documented in HPI Current Medications: Current Medications Medications (Trade) Dose Ordered Sig/Zaid Start Time Stop Time Status Last Admin Dose Admin Levetiracetam 1000 mg/Dextrose 110 ml @ 440 mls/hr 1X ONCE 05/14/21 06:30 05/14/21 06:44 DC 05/14/21 06:36 440 MLS/HR Ondansetron HCl (Zofran) 4 mg 1X ONCE 05/14/21 07:00 05/14/21 07:01 DC 05/14/21 06:36 4 MG Allergies: Allergies: Allergies Coded Allergies Type Severity Reaction Last Updated Verified No Known Drug Allergies 03/02/19 No Physical Exam: PE: General: Awake, lethargic, NAD. Well Nourished, well hydrated. Cooperative HEENT: Atraumatic, EOMI, PERRL, airway patent, moist oral mucosa Neck: Supple, trachea midline Respiratory: CTA bilaterally, normal effort, no wheezing/crackles CV: RRR, no murmur, cap refill <2 GI: Soft, nondistended, nontender, no masses MSK: No obvious deformities Skin: Warm, dry, intact Neuro: A&O x3, speech NL, sensory and motor grossly intact, no focal deficits Psych: Normal affect, normal mood, not suicidal or homicidal Current Patient Data: Vital Signs: Vital Signs Date Time Temp Pulse Resp B/P (MAP) Pulse Ox O2 Delivery O2 Flow Rate FiO2 05/14/21 09:24 67 16 100/59 (73) 98 05/14/21 06:07 97.9 Room Air 97.9 EKG: EKG: [] Heart Score: C/O Chest Pain: N/A Risk Factors: Risk Factors: DM, Current or recent (<one month) smoker, HTN, HLP, family history of CAD, obesity. Risk Scores: Score 0 - 3: 2.5% MACE over next 6 weeks - Discharge Home Score 4 - 6: 20.3% MACE over next 6 weeks - Admit for Clinical Observation Score 7 - 10: 72.7% MACE over next 6 weeks - Early Invasive Strategies Radiology/Procedures: Radiology/Procedures: [] Course & Med Decision Making: Course & Med Decision Making Pertinent Labs and Imaging studies reviewed. (See chart for details) Patient presents to the ED after having a seizure at home. Patient has a h/o seizures. Patient has returned to their baseline and has a normal neurologic exam. Patient has not been compliant with their home regimen. Dose of their home medication was given here in the ED. Patient was observed in the ED and did not have any further seizure episodes. Patient is stable for discharge at this time and will follow up with neurology. Louie Disclaimer: Louie Disclaimer: This electronic medical record was generated, in whole or in part, using a voice recognition dictation system. Departure Departure Impression: Primary Impression: Seizure Additional Impression: Noncompliance Disposition: 01 HOME / SELF CARE / HOMELESS Condition: STABLE Referrals: NO PCP (PCP) Patient Instructions: Seizure, Adult Problem Qualifiers ETHAN QUIÑONES MD May 14, 2021 08:03
[2021-05-14 12:00] VITALS: BP 122/68
== END 2021-05-14 12:00 | disposition home or self-care (01) ==
LOC: ER 05:58
DX: G40.909 Epilepsy, unspecified, not intractable, without status epilepticus (principal); Z91.19 Patient's noncompliance with other medical treatment and regimen; F17.200 Nicotine dependence, unspecified, uncomplicated
CPT/HCPCS: 96365; 96375; 99284; J1953; J2405; J7060; 99285-25

== ENCOUNTER 2021-06-06 01:27 | Emergency (ER) | payer SELFPAY ==
[~2021-06-06] VITALS: Ht 165.1 cm; Wt 70.0 kg
--- NOTE | 2021-06-06 01:53 | PHYS DOC ---
Past Medical History Past Medical History: Seizure Additional Past Medical Histor: Epilepsy, NON-COMPLIANT Past Surgical History: No Surgical History Smoking Status: Current Every Day Smoker Alcohol Use: None Drug Use: None General Adult EDM: Chief Complaint: SEIZURE HPI: HPI: Patient is a 35 year old male with history of epilepsy who is noncompliant with medications who presents with seizure activity lasting 1 to 2 minutes. Was generalized. He was initially slightly confused but has slowly improved. Was brought in by EMS his vital signs were stable in transport. He states that he has a mild headache but otherwise is feeling okay. Denies any recent illnesses. No fever/chills. Has been sleeping okay. Denies any recent stressors. Uses THC, but denies any other drug use or alcohol use. He has been off of antiepileptic medications for a long time. He cannot remember the last time he saw a neurologist. He is not sure if he is interested in starting an antiepileptic or seeing a neurologist again. States that he has seizures for a 2 months approximately. He did think he bit his tongue, but did not have any urinary incontinence. Denies any ongoing pain. States that he has had an MRI of his brain in the past and has had an EEG, he thinks that they were unremarkable. Review of Systems: Review of Systems: Constitutional: Denies fever or chills. [] Eyes: Denies change in visual acuity. [] HENT: Denies nasal congestion or sore throat. [] Respiratory: Denies cough or shortness of breath. [] Cardiovascular: Denies chest pain or edema. [] GI: Denies abdominal pain, nausea, vomiting, bloody stools or diarrhea. [] : Denies dysuria. [] Musculoskeletal: Denies back pain or joint pain. [] Integument: Denies rash. [] Neurologic: + Seizure and headache. no focal weakness or sensory changes. [] Endocrine: Denies polyuria or polydipsia. [] Lymphatic: Denies swollen glands. [] Psychiatric: Denies depression or anxiety. [] Heart Score: C/O Chest Pain: No Risk Factors: Risk Factors: DM, Current or recent (<one month) smoker, HTN, HLP, family history of CAD, obesity. Risk Scores: Score 0 - 3: 2.5% MACE over next 6 weeks - Discharge Home Score 4 - 6: 20.3% MACE over next 6 weeks - Admit for Clinical Observation Score 7 - 10: 72.7% MACE over next 6 weeks - Early Invasive Strategies Allergies: Allergies: Allergies Coded Allergies Type Severity Reaction Last Updated Verified No Known Drug Allergies 03/02/19 No Physical Exam: PE: Constitutional: Well developed, well nourished, no acute distress, non-toxic appearance. [] HENT: tongue biting on the lateral tongue. Oropharynx slightly dry. [] Eyes: PERRLA, EOMI, conjunctiva normal, no discharge. [] Neck: Normal range of motion, no tenderness, supple, no stridor. [] Cardiovascular:Heart rate regular rhythm, no murmur [] Lungs & Thorax: Bilateral breath sounds clear to auscultation [] Abdomen: Bowel sounds normal, soft, no tenderness, no masses, no pulsatile masses. [] Skin: Warm, dry, no erythema, no rash. [] Back: No tenderness, no CVA tenderness. [] Extremities: No tenderness, no cyanosis, no clubbing, ROM intact, no edema. [] Neurologic: Alert, oriented to person, place, time. Face is symmetric. Speech is normal. Cranial nerves III-XII intact. 5/5 strength in bilateral upper and lower extremities in all dermatomes. No dysmetria with [id number] or [id number] testing. Gait is stable. Psychologic: Affect normal, judgement normal, mood normal. [] EKG: EKG: [] Radiology/Procedures: Radiology/Procedures: [] Course & Med Decision Making: Course & Med Decision Making Pertinent Labs and Imaging studies reviewed. (See chart for details) Patient is a 35-year-old male with history of epilepsy who is noncompliant with his medications and no longer follows with a neurologist who presents with seizure activity lasting 1 to 2 minutes. He did exhibit a postictal phase, but is slowly clearing. States that he has seizures every 1 to 2 months. He is unsure whether he would consider restarting antiepileptics or seeing a neurologist. I will provide him with the phone number for our on-call neurologist to potentially consider making appointment. He did not want to start any medication from the emergency department. He has had neuroimaging in the past, do not feel that he requires any repeat imaging today. Likewise, with a confirmed diagnosis of epilepsy I do not feel that he requires a laboratory work-up. We will observe him in the emergency department, to ensure he does not have recurrent seizure activity and that he continues to clear mentally. [id number] Louie Disclaimer: Louie Disclaimer: This electronic medical record was generated, in whole or in part, using a voice recognition dictation system. Departure Departure Impression: Primary Impression: Seizure Disposition: HOME / SELF CARE / HOMELESS Condition: STABLE Referrals: NO PCP (PCP) ALVARO BELLAMY MD Consider calling to make an appointment with our neurologist. Patient Instructions: Seizure, Adult Additional Instructions: Please consider calling the neurologist office to start treatment for your seizures again. This would likely improve the quality of your life significantly. ДМИТРИЙ CARSON MD Jun 06, 2021 01:53
[2021-06-06 04:00] VITALS: BP 120/70
== END 2021-06-06 04:20 | disposition home or self-care (01) ==
LOC: ER 01:27
DX: G40.909 Epilepsy, unspecified, not intractable, without status epilepticus (principal); F17.200 Nicotine dependence, unspecified, uncomplicated
CPT/HCPCS: 99283

== ENCOUNTER 2021-06-06 06:07 | Emergency (ER) | payer SELFPAY ==
[~2021-06-06] VITALS: Ht 172.7 cm; Wt 85.0 kg
[2021-06-06] MEDS ORDERED: ONDANSETRON ODT 4 MG TAB.RAPDIS. PO ONE (06:30)
[2021-06-06] MEDS ORDERED: levETIRAcetam 500 MG TABLET PO SCH (06:35)
--- NOTE | 2021-06-06 06:54 | ED.ADGEN ---
Past Medical History Past Medical History: Seizure Additional Past Medical Histor: Epilepsy, NON-COMPLIANT Past Surgical History: No Surgical History Smoking Status: Current Every Day Smoker Alcohol Use: None Drug Use: None General Adult EDM: Chief Complaint: SEIZURE HPI: HPI: Patient is a 35 year old coming in via EMS for seizure-like activity last 3 to 4 minutes. History provided by EMS as reported by girlfriend that he had seizure like activity was symmetric convulsions. Patient was postictal on EMS arrival. Patient was recently discharged for same presentation. Patient has long history of emergency department visits for seizures and noncompliance with Keppra. No new complaints. Patient has had some nausea and vomiting with blood due to biting the left side of his tongue. Patient has not been taking his Keppra but states he does have the medication and a prescription at home. Was given information for neurology follow-up at previous discharge a few hours ago. Review of Systems: Review of Systems: All other systems within normal limits except for as noted in the HPI Current Medications: Current Medications Medications (Trade) Dose Ordered Sig/Zaid Start Time Stop Time Status Last Admin Dose Admin Levetiracetam (Keppra) 1,500 mg BID 06/06/21 06:35 06/06/21 06:41 1,500 MG Ondansetron HCl (Zofran Odt) 4 mg 1X ONCE 06/06/21 06:30 06/06/21 06:31 DC 06/06/21 06:30 4 MG Allergies: Allergies: Allergies Coded Allergies Type Severity Reaction Last Updated Verified No Known Drug Allergies 03/02/19 No Physical Exam: PE: Constitutional: Well developed, well nourished, no acute distress, non-toxic appearance. [] HENT: Normocephalic, atraumatic, bilateral external ears normal, nose normal.. Nonbleeding bite coy to left tongue [] Eyes: PERRLA, conjunctiva normal, no discharge. [] Neck: No rigidity, supple, no stridor. [] Cardiovascular: Regular rate and rhythm, brisk cap refill [] Lungs & Thorax: Non labored symmetric respirations, no tachypnea or respiratory distress [] Abdomen: Soft, nondistended. Skin: Warm, dry, no erythema, no rash. [] Back: Unremarkable Extremities: No deformities, range of motion grossly intact, no lower extremity edema [] Neurologic: Alert and oriented X 3, no focal deficits noted. [] Psychologic: Affect normal, judgement normal, mood normal. [] Current Patient Data: Vital Signs: Vital Signs Date Time Temp Pulse Resp B/P (MAP) Pulse Ox O2 Delivery O2 Flow Rate FiO2 06/06/21 06:17 98.4 111 20 131/79 (87) 99 Room Air 98.4 EKG: EKG: [] Heart Score: C/O Chest Pain: No Risk Factors: Risk Factors: DM, Current or recent (<one month) smoker, HTN, HLP, family history of CAD, obesity. Risk Scores: Score 0 - 3: 2.5% MACE over next 6 weeks - Discharge Home Score 4 - 6: 20.3% MACE over next 6 weeks - Admit for Clinical Observation Score 7 - 10: 72.7% MACE over next 6 weeks - Early Invasive Strategies Radiology/Procedures: Radiology/Procedures: [] Course & Med Decision Making: Course & Med Decision Making No injuries or indication for repeat neuroimaging. Patient back to baseline. Discussed importance of getting his second Covid vaccine and taking his Keppra. Patient states he does not any prescription and has a prescription and means to take his Keppra at home is just noncompliant. Given loading dose of Keppra in emergency department. Louie Disclaimer: Louie Disclaimer: This electronic medical record was generated, in whole or in part, using a voice recognition dictation system. Departure Departure Impression: Primary Impression: Seizure Disposition: HOME / SELF CARE / HOMELESS Condition: STABLE Referrals: NO PCP (PCP) ALVARO BELLAMY MD Patient Instructions: Seizure, Adult NEELAM ELLIS MD Jun 06, 2021 06:54
[2021-06-06 07:10] VITALS: BP 136/76
== END 2021-06-06 07:10 | disposition home or self-care (01) ==
LOC: ER 06:07
DX: G40.909 Epilepsy, unspecified, not intractable, without status epilepticus (principal); F17.200 Nicotine dependence, unspecified, uncomplicated
CPT/HCPCS: 99283

== ENCOUNTER 2021-06-28 23:16 | Emergency (ER) | payer SELFPAY ==
[~2021-06-28] VITALS: Ht 167.6 cm; Wt 80.0 kg
[2021-06-29] MEDS ORDERED: levETIRAcetam 1,000 MG in IV DEXTROSE 5% 100ML 100 ML IV ONE
[2021-06-29 00:24] LABS: CALCIUM 9.2 mg/dL (8.5-10.1); CREATININE 1.6 mg/dL (0.7-1.3); GFR 60.5
[2021-06-29 00:30] LABS: ALBUMIN 3.8 g/dL (3.4-5.0); ALBUMIN/GLOBULIN RATIO 0.9 (1.0-1.7); TOTAL BILIRUBIN 1.7 mg/dL (0.2-1.0); TOTAL PROTEIN 7.9 g/dL (6.4-8.2)
--- NOTE | 2021-06-29 01:00 | PHYS DOC ---
Past Medical History Past Medical History: Seizure Additional Past Medical Histor: Epilepsy, NON-COMPLIANT Past Surgical History: No Surgical History Smoking Status: Current Some Day Smoker Alcohol Use: None Drug Use: None General Adult EDM: Chief Complaint: SEIZURE HPI: HPI: Patient is a 35 year old male past medical history of seizures presents for evaluation after a witnessed seizure. Patient is noncompliant with his Keppra. Witnessed seizure by family just prior to arrival. Upon EMS arrival patient was combative. On my exam patient is alert and oriented x4. Patient did have an oral wound but no active bleeding at this time. Patient did have loss of bladder. Review of Systems: Review of Systems: Review of systems: Constitutional symptoms- No fever, no chills. Eyes- No Discharge, No Visual Loss Respiratory symptoms- No shortness of breath, No wheezing, No Dyspnea on Exertion Cardiovascular Systems; No chest pain, No Palpitations, No syncope Gastrointestinal symptoms: NO abdominal pain, no nausea, no vomiting or lyly rrhea. Genitourinary symptoms: No dysuria. Musculoskeletal symptoms: No back pain No extremity pain. NEUROLOGICAL Symptoms: No headache, no generalized weakness; No focal Weakness positive seizure Skin: No rash. Heart Score: C/O Chest Pain: N/A Risk Factors: Risk Factors: DM, Current or recent (<one month) smoker, HTN, HLP, family his tory of CAD, obesity. Risk Scores: Score 0 - 3: 2.5% MACE over next 6 weeks - Discharge Home Score 4 - 6: 20.3% MACE over next 6 weeks - Admit for Clinical Observation Score 7 - 10: 72.7% MACE over next 6 weeks - Early Invasive Strategies Current Medications: Current Medications Medications (Trade) Dose Ordered Sig/[facility] Start Time Stop Time Status Last Admin Dose Admin Levetiracetam 1000 mg/Dextrose 110 ml @ 440 mls/hr 1X ONCE 06/29/21 00:00 06/29/21 00:14 DC 06/29/21 00:12 440 MLS/HR Allergies: Allergies: Allergies Coded Allergies Type Severity Reaction Last Updated Verified No Known Drug Allergies 03/02/19 No Physical Exam: PE: General: alert, no acute distress. Skin: warm, dry and intact, no erythema, no rash. HENT: bilateral external ears normal, oropharynx moist, nose normal. Head:: Normocephalic, atraumatic. Neck: Trachea midline. Eyes: EOMI, Normal conjunctiva, No drainage CARDIOVASCULAR: Regular rate and rhythm RESPIRATORY: No respiratory distress Back: Full range of motion. MUSCULOSKELETAL: Full range of motion of bilateral upper and lower extremities. GASTROINTESTINAL: Abdomen soft without rebound or guarding. NEUROLOGICAL: Alert and noted to person, place and time. No neurological deficits observed Psychiatric: Cooperative. Normal judgment Current Patient Data: Labs: Laboratory Tests Test 06/28/21 23:30 Sodium Level 137 mmol/L (136-145) Potassium Level 4.0 mmol/L (3.5-5.1) Chloride Level 101 mmol/L (98-107) Carbon Dioxide Level 15 mmol/L (21-32) L Anion Gap 21 (6-14) H Blood Urea Nitrogen 11 mg/dL (8-26) Creatinine 1.6 mg/dL (0.7-1.3) H Estimated GFR (Cockcroft-Gault) 60.5 BUN/Creatinine Ratio 7 (6-20) Glucose Level 160 mg/dL (70-99) H Calcium Level 9.2 mg/dL (8.5-10.1) Total Bilirubin 1.7 mg/dL (0.2-1.0) H Aspartate Amino Transferase (AST) 30 U/L (15-37) Alanine Aminotransferase (ALT) 25 U/L (16-63) Alkaline Phosphatase 73 U/L (46-116) Total Protein 7.9 g/dL (6.4-8.2) Albumin 3.8 g/dL (3.4-5.0) Albumin/Globulin Ratio 0.9 (1.0-1.7) L Laboratory Tests 06/28/21 23:30 Vital Signs: Vital Signs Date Time Temp Pulse Resp B/P (MAP) Pulse Ox O2 Delivery O2 Flow Rate FiO2 06/28/21 23:18 98.0 121 26 141/90 (107) 88 Room Air 98.0 EKG: EKG: [] Radiology/Procedures: Radiology/Procedures: [] Course & Med Decision Making: Course & Med Decision Making Pertinent Labs and Imaging studies reviewed. (See chart for details) [] Patient evaluated for chief complaint. CMP performed no significant abnormality. When patient arrived to was in the 80s on room air he was placed on supplemental oxygen nasal cannula with improvement of oxygen saturation Patient states he has a history of hypoxia post seizures. Previous admission hypoxia after seizure due to aspiration. Patient did not vomit during the seizure. Patient observed, he is stable he states he feels much better, he received Keppra 1 g. Donnaon Disclaimer: Louie Disclaimer: This electronic medical record was generated, in whole or in part, using a voice recognition dictation system. Departure Departure Impression: Primary Impression: Seizure Disposition: HOME / SELF CARE / HOMELESS Condition: STABLE Referrals: NO PCP (PCP) Patient Instructions: Seizure, Adult KAMILA RUBIO I DO Jun 29, 2021 01:00
[2021-06-29 03:30] VITALS: BP 110/73
== END 2021-06-29 04:21 | disposition home or self-care (01) ==
LOC: ER 23:16
DX: G40.909 Epilepsy, unspecified, not intractable, without status epilepticus (principal); F17.200 Nicotine dependence, unspecified, uncomplicated
CPT/HCPCS: 36415; 80053; 96365; 99285; J1953; J7060; 99284

== ENCOUNTER 2021-08-27 03:28 | Emergency (ER) | payer SELFPAY ==
[~2021-08-27] VITALS: Ht 167.6 cm; Wt 68.1 kg
--- NOTE | 2021-08-27 03:48 | PHYS DOC ---
Past Medical History Past Medical History: Seizure Additional Past Medical Histor: Epilepsy, NON-COMPLIANT Past Surgical History: No Surgical History Smoking Status: Current Some Day Smoker Alcohol Use: None Drug Use: None General Adult EDM: Chief Complaint: SEIZURE HPI: HPI: Patient is a 35 year old male with history of epilepsy and medication noncompliance who presents with a seizure. No significant other found him seizing in bed. He stayed in bed during seizure, they did not note any head trauma, but did notice bleeding from his nose. Lasted a few minutes, and self aborted. States that he has seizures every few months, and does not take his previously prescribed Keppra or follow with a neurologist. He has been seen in this emergency department several times in the past year for similar episodes. Denies any recent changes in sleep patterns, alcohol abuse. Does admit to frequent THC use. No other medications. No other medical history. Review of Systems: Review of Systems: Constitutional: Denies fever or chills. [] Eyes: Denies change in visual acuity. [] HENT: Denies nasal congestion or sore throat. [] Respiratory: Denies cough or shortness of breath. [] Cardiovascular: Denies chest pain or edema. [] GI: Denies abdominal pain, nausea, vomiting, bloody stools or diarrhea. [] : Denies dysuria. [] Musculoskeletal: Denies back pain or joint pain. [] Integument: Denies rash. [] Neurologic: Reports seizure denies headache, focal weakness or sensory changes. [] Endocrine: Denies polyuria or polydipsia. [] Lymphatic: Denies swollen glands. [] Psychiatric: Denies depression or anxiety. [] Heart Score: C/O Chest Pain: No Risk Factors: Risk Factors: DM, Current or recent (<one month) smoker, HTN, HLP, family history of CAD, obesity. Risk Scores: Score 0 - 3: 2.5% MACE over next 6 weeks - Discharge Home Score 4 - 6: 20.3% MACE over next 6 weeks - Admit for Clinical Observation Score 7 - 10: 72.7% MACE over next 6 weeks - Early Invasive Strategies Allergies: Allergies: Allergies Coded Allergies Type Severity Reaction Last Updated Verified No Known Drug Allergies 03/02/19 No Physical Exam: PE: Constitutional: Well-developed, well-nourished. Smells of marijuana. HENT: Bleeding from his bilateral naris. No evidence of septal hematoma. No nasal bridge tenderness to palpation or deformity. No maxillary, mandibular, or frontal tenderness or edema. Tongue biting on the lateral tongue and some bleeding on his lip. No large lip lacerations. Eyes: PERRLA, EOMI Neck: Normal range of motion, no tenderness, supple, no stridor. [] Cardiovascular:Heart rate regular rhythm, no murmur [] Lungs & Thorax: Bilateral breath sounds clear to auscultation [] Abdomen: Bowel sounds normal, soft, no tenderness, no masses, no pulsatile masses. [] Skin: Warm, dry, no erythema, no rash. [] Back: No tenderness, no CVA tenderness. [] Extremities: No tenderness, no cyanosis, no clubbing, ROM intact, no edema. [] Neurologic: Appears sleepy, but eyes are open. Answering questions appropriately. Face symmetric. No slurred speech. Alert and oriented X 3, normal motor function, normal sensory function, no focal deficits noted. [] Psychologic: Affect normal, judgement normal, mood normal. [] EKG: EKG: [] Radiology/Procedures: Radiology/Procedures: [] Course & Med Decision Making: Course & Med Decision Making Pertinent Labs and Imaging studies reviewed. (See chart for details) Patient is a 35-year-old male with history of epilepsy who is noncompliant with medications who presents after a seizure at home. On arrival he is slightly postictal, but is clearing mentally. Vital signs are reassuring. He does have bleeding from his nose, but does not have any evidence of nasal bone fracture clinically. No septal hematoma noted. Bleeding is now controlled. No evidence of other facial trauma, or serious head injury. He does have an established diagnosis of epilepsy, and has had previous neuroimaging, do not feel that it is required today. Blood glucose was normal. Do not feel that other labs would be helpful at this time. Low suspicion for sodium disturbance causing seizure. He does not have any interest in restarting antiepileptics or seeing a neurologist, so we will hold on any seizure medications in the emergency department for now. We will give him our on-call neurologist office number, should he change his mind. Will continue to monitor to ensure no repeat seizure and that he returns to neurologic baseline. 0346 Patient is requesting discharge, and while I would prefer a longer period of ob servation, I feel he has capacity to make that decision at this time. Will ensure he can ambulate and take p.o. prior to discharge. 0354 Louie Disclaimer: Louie Disclaimer: This electronic medical record was generated, in whole or in part, using a voice recognition dictation system. Departure Departure Impression: Primary Impression: Seizure Disposition: HOME / SELF CARE / HOMELESS Condition: STABLE Referrals: RAYNA ESCALERA MD (PCP) Schedule an appt JOSH CARTER MD If you wish to see a specialist for your seizure disorder again, please call the attached number and schedule an appointment. Patient Instructions: Seizure Disorder, Child, Generalized Tonic-Clonic ДМИТРИЙ CARSON MD Aug 27, 2021 03:48
[2021-08-27 04:01] VITALS: BP 127/80
[2021-08-27] MEDS ORDERED: AMOX1TAB61 PO (10:37)
[2021-08-27] MEDS ORDERED: AZIT250T PO (10:37)
== END 2021-08-27 04:13 | disposition home or self-care (01) ==
LOC: ER 03:28
DX: G93.81 Temporal sclerosis (principal); G40.909 Epilepsy, unspecified, not intractable, without status epilepticus; F17.200 Nicotine dependence, unspecified, uncomplicated
CPT/HCPCS: 99283

== ENCOUNTER 2021-08-27 07:14 | Emergency (ER) | payer SELFPAY ==
[~2021-08-27] VITALS: Ht 162.6 cm; Wt 72.7 kg
[2021-08-27] MEDS ORDERED: ONDANSETRON ODT 4 MG TAB.RAPDIS. PO ONE (07:30)
[2021-08-27] MEDS ORDERED: IV NORMAL SALINE 500ML BAG 500 ML IV ONE (08:00)
[2021-08-27 08:02] LABS: CALCIUM 8.7 mg/dL (8.5-10.1); CREATININE 1.2 mg/dL (0.7-1.3); GFR 84.4; POTASSIUM 3.7 mmol/L (3.5-5.1)
[2021-08-27 08:08] LABS: ALBUMIN 3.7 g/dL (3.4-5.0); ALBUMIN/GLOBULIN RATIO 1.1 (1.0-1.7); BASO # 0.1 x10^3/uL (0.0-0.2); BASO % 1 % (0-3); EOS % 0 % (0-3); HEMATOCRIT 48.8 % (39.0-53.0); HEMOGLOBIN 15.8 g/dL (13.0-17.5); LYMPH # 1.9 x10^3/uL (1.0-4.8); LYMPH % 12 % (24-48); MEAN CORPUSCULAR HEMOGLOBIN 28 pg (25-35); MEAN CORPUSCULAR HGB CONC 32 g/dL (31-37); MEAN CORPUSCULAR VOLUME 87 fL (79-100); MONO # 0.9 x10^3/uL (0.0-1.1); MONO % 6 % (0-9); NEUT # 12.7 x10^3/uL (1.8-7.7); NEUT % 81 % (31-73); PLATELET COUNT 204 x10^3/uL (140-400); RED BLOOD COUNT 5.64 x10^6/uL (4.30-5.70); RED CELL DISTRIBUTION WIDTH 14.8 % (11.5-14.5); TOTAL BILIRUBIN 0.7 mg/dL (0.2-1.0); WHITE BLOOD COUNT 15.6 x10^3/uL (4.0-11.0)
[2021-08-27] MEDS ORDERED: IOHEXOL 350 MG/ML 100 ML VIAL. IV ONE (08:15)
--- NOTE | 2021-08-27 08:50 | RAD ---
EXAM: Chest, single view. HISTORY: Hypoxia. COMPARISON: 04/02/2021 FINDINGS: A frontal view of the chest is obtained. There has been interval decrease in previously dem onstrated diffuse right lung infiltrate. There has been slight interval decrease in left upper lobe i nfiltrate and there is stable left lower lobe infiltrate. There is no pleural effusion or pneumothora x. The heart is normal in size. IMPRESSION: Decreased right lung and left upper lobe infiltrate and stable left lower lobe infiltrate . Electronically signed by: Debbie Meier MD (08/27/2021 8:47 AM) [id number]
[2021-08-27 10:06] VITALS: BP 154/94
--- NOTE | 2021-08-27 10:08 | RAD ---
Examination: CT angiography chest with IV contrast HISTORY: History of hypoxia COMPARISON: 04/02/2021 TECHNIQUE: Axial CT angiographic images of chest were performed with IV contrast. Coronal and sagitta l 3-D MIP reformats are performed Exposure: One or more of the following individualized dose reduction techniques were utilized for thi s examination: 1. Automated exposure control 2. Adjustment of the mA and/or kV according to patient size 3. Use of iterative reconstruction technique FINDINGS: The visualized thyroid gland grossly appears unremarkable. Central airways are patent. The caliber of the aorta grossly appears unremarkable. There is no evidence of filling defect identified in the mikal n pulmonary arterial trunk and right and left main pulmonary arteries. There are multiple patchy alve olar airspace opacities identified in the bilateral lungs likely infiltrates or multilobar pneumonia. The liver, spleen, adrenals grossly appears unremarkable. No evidence of lytic bony destructive lesi on. IMPRESSION: 1.No evidence of pulmonary embolism. 2. Multiple patchy alveolar airspace opacities identified in the bilateral lungs likely infiltrates o r multilobar pneumonia. Follow-up to resolution. Electronically signed by: Meño Cantrell MD (08/27/2021 10:05 AM) [id number]
--- NOTE | 2021-08-27 10:13 | RAD ---
EXAM: Head and cervical spine CT without contrast. HISTORY: Confusion. TECHNIQUE: Computed tomographic images of the head and cervical spine were obtained without contrast. *One or more of the following individualized dose reduction techniques were utilized for this examina tion: 1. Automated exposure control. 2. Adjustment of the mA and/or kV according to patient size. 3. Use of iterative reconstruction technique. COMPARISON: 04/02/2021. FINDINGS: Head: There is no hemorrhage. There is no mass effect or midline shift. There is no hydrocephalus. Th e christianson-white matter differentiation pattern is intact. The orbits, visualized paranasal sinuses masto id air cells are unremarkable. There is no suspicious calvarial lesion. Cervical spine: There is no listhesis. The vertebral bodies are normal in height and the disc spaces are preserved. There is no suspicious osseous lesion. There is no significant foraminal or central ca nal stenosis. There is groundglass infiltrate within the bilateral lung apices. There is no pneumotho rax. IMPRESSION: 1. No acute intracranial finding or evidence of acute cervical spine trauma. Note is made that MRI is more sensitive for acute infarction. 2. Bilateral apical pulmonary infiltrate. Please refer to the separate report for the chest CT on the same date. Electronically signed by: Debbie Meier MD (08/27/2021 10:11 AM) [id number]
[2021-08-27] MEDS ORDERED: levETIRAcetam 1,000 MG in IV DEXTROSE 5% 100ML 100 ML IV ONE (10:30)
[2021-08-27] MEDS ORDERED: VANCOMYCIN PER PHARMACY MC PRN (10:30)
[2021-08-27] MEDS ORDERED: PIPERACILLIN/TAZOBACTAM 4.5 GM in IV NORMAL SALINE 100ML 100 ML IV ONE (10:30)
[2021-08-27] MEDS ORDERED: IV NORMAL SALINE 1000ML BAG 1,000 ML IV ONE (10:30)
--- NOTE | 2021-08-27 10:31 | PHYS DOC ---
Past Medical History Past Medical History: Seizure Additional Past Medical Histor: Epilepsy, NON-COMPLIANT Past Surgical History: No Surgical History Smoking Status: Current Every Day Smoker Alcohol Use: None Drug Use: None General Adult EDM: Chief Complaint: SEIZURE HPI: HPI: 35-year-old male past medical history of epilepsy, noncompliant with medications and frequent daily marijuana use, presents the ED via EMS, as a bounce back, concern for repeat seizure with postictal state that has resolved. Pt spitting out blood stating he bit his tongue. EMR was reviewed from prior ed visit. Review of Systems: Review of Systems: Constitutional: Denies fever or chills. [] Eyes: Denies change in visual acuity. [] HENT: Denies nasal congestion or sore throat. [] Respiratory: Denies cough or shortness of breath. [] Cardiovascular: Denies chest pain or edema. [] GI: Denies abdominal pain, nausea, vomiting, bloody stools or diarrhea. [] : Denies dysuria or flank pain Musculoskeletal: Denies back pain or joint pain. [] Integument: Denies rash or diaphoresis Neurologic: Denies headache, focal weakness or sensory changes. [] Endocrine: Denies polyuria or polydipsia. [] Lymphatic: Denies swollen glands. [] Psychiatric: Denies depression or anxiety. [] Heart Score: C/O Chest Pain: No Risk Factors: Risk Factors: DM, Current or recent (<one month) smoker, HTN, HLP, family history of CAD, obesity. Risk Scores: Score 0 - 3: 2.5% MACE over next 6 weeks - Discharge Home Score 4 - 6: 20.3% MACE over next 6 weeks - Admit for Clinical Observation Score 7 - 10: 72.7% MACE over next 6 weeks - Early Invasive Strategies Current Medications: Current Medications Medications (Trade) Dose Ordered Sig/Zaid Start Time Stop Time Status Last Admin Dose Admin Iohexol (Omnipaque 350 Mg/ml) 90 ml 1X ONCE 08/27/21 08:15 08/27/21 08:16 DC 08/27/21 08:15 90 ML Ondansetron HCl (Zofran Odt) 4 mg 1X ONCE 08/27/21 07:30 08/27/21 07:31 DC 08/27/21 07:49 4 MG Sodium Chloride 500 ml @ 500 mls/hr 1X ONCE 08/27/21 08:00 08/27/21 08:59 DC 08/27/21 08:15 500 MLS/HR Allergies: Allergies: Allergies Coded Allergies Type Severity Reaction Last Updated Verified No Known Drug Allergies 08/27/21 No Physical Exam: PE: Constitutional: Well developed, well nourished, no acute distress, non-toxic appearance. HENT: Normocephalic, atraumatic, no active oral bleeding Eyes: PERRLA, EOMI, conjunctiva normal, no discharge. Neck: Normal range of motion, supple, Cardiovascular: S1/2 present, regular rhythm Lungs & Thorax: Speaking in full sentences, bilateral equal chest rise, no tachypnea or increased work of breathing Abdomen: soft, no tenderness, Skin: Warm, dry, no erythema, no rash. [] Back: No tenderness, no CVA tenderness. [] Extremities: No tenderness, no cyanosis, no lower extremity edema Neurologic: snoring respirations on arrival then spitting blood, normal motor function, normal sensory function, no focal deficits noted. [] Psychologic: Affect normal, judgement normal, mood normal. [] Current Patient Data: Labs: Laboratory Tests Test 08/27/21 07:45 White Blood Count 15.6 x10^3/uL (4.0-11.0) H Red Blood Count 5.64 x10^6/uL (4.30-5.70) Hemoglobin 15.8 g/dL (13.0-17.5) Hematocrit 48.8 % (39.0-53.0) Mean Corpuscular Volume 87 fL (79-100) Mean Corpuscular Hemoglobin 28 pg (25-35) Mean Corpuscular Hemoglobin Concent 32 g/dL (31-37) Red Cell Distribution Width 14.8 % (11.5-14.5) H Platelet Count 204 x10^3/uL (140-400) Neutrophils (%) (Auto) 81 % (31-73) H Lymphocytes (%) (Auto) 12 % (24-48) L Monocytes (%) (Auto) 6 % (0-9) Eosinophils (%) (Auto) 0 % (0-3) Basophils (%) (Auto) 1 % (0-3) Neutrophils # (Auto) 12.7 x10^3/uL (1.8-7.7) H Lymphocytes # (Auto) 1.9 x10^3/uL (1.0-4.8) Monocytes # (Auto) 0.9 x10^3/uL (0.0-1.1) Eosinophils # (Auto) 0.0 x10^3/uL (0.0-0.7) Basophils # (Auto) 0.1 x10^3/uL (0.0-0.2) Platelet Estimate Pending Sodium Level 138 mmol/L (136-145) Potassium Level 3.7 mmol/L (3.5-5.1) Chloride Level 104 mmol/L (98-107) Carbon Dioxide Level 18 mmol/L (21-32) L Anion Gap 16 (6-14) H Blood Urea Nitrogen 10 mg/dL (8-26) Creatinine 1.2 mg/dL (0.7-1.3) Estimated GFR (Cockcroft-Gault) 84.4 BUN/Creatinine Ratio 8 (6-20) Glucose Level 169 mg/dL (70-99) H Calcium Level 8.7 mg/dL (8.5-10.1) Total Bilirubin 0.7 mg/dL (0.2-1.0) Aspartate Amino Transferase (AST) 24 U/L (15-37) Alanine Aminotransferase (ALT) 26 U/L (16-63) Alkaline Phosphatase 75 U/L (46-116) Creatine Kinase 190 U/L (39-308) Total Protein 7.0 g/dL (6.4-8.2) Albumin 3.7 g/dL (3.4-5.0) Albumin/Globulin Ratio 1.1 (1.0-1.7) Laboratory Tests 08/27/21 07:45 Laboratory Tests 08/27/21 07:45 Vital Signs: Vital Signs Date Time Temp Pulse Resp B/P (MAP) Pulse Ox O2 Delivery O2 Flow Rate FiO2 08/27/21 07:34 97.5 96 20 161/87 (111) 86 Room Air 97.5 EKG: EKG: [] Radiology/Procedures: Radiology/Procedures: IMAGING REPORT Signed PATIENT: SYDNIE ARENAS ACCOUNT: [id number] : 1985 LOCATION: ER AGE: 35 SEX: M EXAM STATUS: REG ER ORD. PHYSICIAN: DARWIN FARRAR DO REASON: confusion PROCEDURE: CT HEAD AND CERVICAL SPINE WO EXAM: Head and cervical spine CT without contrast. HISTORY: Confusion. TECHNIQUE: Computed tomographic images of the head and cervical spine were obtained without contrast. *One or more of the following individualized dose reduction techniques were utilized for this examination: 1. Automated exposure control. 2. Adjustment of the mA and/or kV according to patient size. 3. Use of iterative reconstruction technique. COMPARISON: 04/02/2021. FINDINGS: Head: There is no hemorrhage. There is no mass effect or midline shift. There is no hydrocephalus. The christianson-white matter differentiation pattern is intact. The orbits, visualized paranasal sinuses mastoid air cells are unremarkable. There is no suspicious calvarial lesion. Cervical spine: There is no listhesis. The vertebral bodies are normal in height and the disc spaces are preserved. There is no suspicious osseous lesion. There is no significant foraminal or central canal stenosis. There is groundglass infiltrate within the bilateral lung apices. There is no pneumothorax. IMPRESSION: 1. No acute intracranial finding or evidence of acute cervical spine trauma. N ote is made that MRI is more sensitive for acute infarction. 2. Bilateral apical pulmonary infiltrate. Please refer to the separate report for the chest CT on the same date. Electronically signed by: Debbie Self MD (08/27/2021 10:11 AM) [id number] DICTATED and SIGNED BY: DEBBIE SLEF MD DATE: 08/27/21 [id number] 0 IMAGING REPORT Signed PATIENT: SYDNIE ARENAS ACCOUNT: [id number] : 1985 LOCATION: ER AGE: 35 SEX: M EXAM STATUS: REG ER ORD. PHYSICIAN: DARWIN FARRAR DO REASON: hypoxia, r/o pe PROCEDURE: CT ANGIOGRAPHY CHEST Examination: CT angiography chest with IV contrast HISTORY: History of hypoxia COMPARISON: 04/02/2021 TECHNIQUE: Axial CT angiographic images of chest were performed with IV contrast. Coronal and sagittal 3-D MIP reformats are performed Exposure: One or more of the following individualized dose reduction techniques were utilized for this examination: 1. Automated exposure control 2. Ad justment of the mA and/or kV according to patient size 3. Use of iterative reconstruction technique FINDINGS: The visualized thyroid gland grossly appears unremarkable. Central airways are patent. The caliber of the aorta grossly appears unremarkable. There is no evidence of filling defect identified in the main pulmonary arterial trunk and right and left main pulmonary arteries. There are multiple patchy alveolar airspace opacities identified in the bilateral lungs likely infiltrates or multi lobar pneumonia. The liver, spleen, adrenals grossly appears unremarkable. No evidence of lytic bony destructive lesion. IMPRESSION: 1.No evidence of pulmonary embolism. 2. Multiple patchy alveolar airspace opacities identified in the bilateral lungs likely infiltrates or multilobar pneumonia. Follow-up to resolution. Electronically signed by: Meño Cantrell MD (08/27/2021 10:05 AM) [id number] DICTATED and SIGNED BY: MEÑO CANTRELL MD DATE: 08/27/21 [id number] 0 IMAGING REPORT Signed PATIENT: SYDNIE ARENAS ACCOUNT: [id number] : 1985 LOCATION: ER AGE: 35 SEX: M EXAM STATUS: PRE ER ORD. PHYSICIAN: DARWIN FARRAR DO REASON: hypoxia PROCEDURE: CHEST AP ONLY EXAM: Chest, single view. HISTORY: Hypoxia. COMPARISON: 04/02/2021 FINDINGS: A frontal view of the chest is obtained. There has been interval decrease in previously demonstrated diffuse right lung infiltrate. There has been slight interval decrease in left upper lobe infiltrate and there is stable left lower lobe infiltrate. There is no pleural effusion or pneumothorax. The heart is normal in size. IMPRESSION: Decreased right lung and left upper lobe infiltrate and stable left lower lobe infiltrate. Electronically signed by: Debbie Self MD (08/27/2021 8:47 AM) [id number] DICTATED and SIGNED BY: DEBBIE SELF MD DATE: 08/27/21 [id number] 0 Course & Med Decision Making: Course & Med Decision Making Pertinent Labs and Imaging studies reviewed. (See chart for details) Pt had been admitted to Dr. Armstrong for aspiration pneumonia and uncontrolled epilepsy likely secondary to medication noncompliance and marijuana use. Pt requested leave AGAINST MEDICAL ADVICE stating he has to go take care of his daughter. The patient has decided to leave our facility against medical advice. I have assessed patient's ability to make informed decision and feel the patient has the capacity to comprehend information regarding the current medical condition and appreciates the impact of the disease or condition and the consequences of various options for treatment, including foregoing treatment. The patient possesses the ability to evaluate all treatment options, comparing the risks and benefits of each option, communicate his or her choice in a consistent manner over time, and is able to make rational choices. I explained to the patient further testing, treatment, and evaluation I would like to perform in the emergency department visit as well as any possible alternatives that can be accomplished in a timely manner. I have outlined the possible risks of foregoing any or all of these interventions and the patient understands and acknowledges that the decision to leave may result in undesirable consequences such as , permanent disability, and/or loss of current lifestyle. Even though leaving AMA is not ideal, I have instructed the patient to follow any discharge instructions given, take any medications prescribed, and resume care as soon as possible with another provider. This conversation was witnessed by another member of the emergency department staff (Mark) and we clearly communicated the patient is welcome to return anytime to continue care at our facility. Dragon Disclaimer: Dragon Disclaimer: This electronic medical record was generated, in whole or in part, using a voice recognition dictation system. Departure Departure Impression: Primary Impression: Aspiration pneumonia Additional Impressions: Epilepsy H/O medication noncompliance Left against medical advice Disposition: LEFT AGAINST MEDICAL ADVICE Admitting Physician: JOSE LUIS (Dr. Armstrong) Condition: GUARDED Referrals: NO PCP (PCP) Scripts Azithromycin (ZITHROMAX) 250 Mg Tablet 1 PKG PO UD, #6 TAB Prov: DARWIN FARRAR DO 08/27/21 Amoxicillin/Potassium Clav (AUGMENTIN 875-125 TABLET) 1 Each Tablet 1 TAB PO BID for 10 Days, #20 TAB 0 Refills Prov: DARWIN FARRAR DO 08/27/21 DARWIN FARRAR DO Aug 27, 2021 10:31
[2021-08-27] MEDS ORDERED: AZIT250T PO (10:37)
[2021-08-27] MEDS ORDERED: AMOX1TAB61 PO (10:37)
[2021-08-27] MEDS ORDERED: VANCOMYCIN 1.75 GM in IV NORMAL SALINE 500ML BAG 500 ML IV ONE (11:00)
[2021-08-27 11:07] LABS: % ATYL 3 % (0-0); % LYMPHS 7 % (24-48); % MONOS 6 % (0-10); % SEGS 84 % (35-66); PLT ESTIMATE ADEQUATE (ADEQUATE)
== END 2021-08-27 10:42 | disposition left against medical advice (07) ==
LOC: ER 07:14
DX: J69.0 Pneumonitis due to inhalation of food and vomit (principal); G40.909 Epilepsy, unspecified, not intractable, without status epilepticus; F17.200 Nicotine dependence, unspecified, uncomplicated
CPT/HCPCS: 36415; 70450; 71045; 71275; 72125; 80053; 82550; 83605; 85007; 85025; 87040; 99285; J7040; Q9967

== ENCOUNTER 2021-08-27 11:09 | Inpatient (IN) | payer SELFPAY ==
[~2021-08-27] VITALS: Ht 172.7 cm; Wt 72.7 kg
[~2021-08-27 11:09] MED LIST changes: +AZIT250T PO
[2021-08-27] MEDS ORDERED: PIPERACILLIN/TAZOBACTAM 4.5 GM in IV NORMAL SALINE 100ML 100 ML IV ONE (11:30)
[2021-08-27] MEDS ORDERED: levETIRAcetam 1,000 MG in IV DEXTROSE 5% 100ML 100 ML IV ONE (11:30)
[2021-08-27] MEDS ORDERED: VANCOMYCIN PER PHARMACY MC PRN (11:30)
[2021-08-27] MEDS ORDERED: IV NORMAL SALINE 1000ML BAG 1,000 ML IV ONE (11:30)
[2021-08-27] MEDS ORDERED: VANCOMYCIN 1.75 GM in IV NORMAL SALINE 500ML BAG 500 ML IV ONE (12:00)
--- NOTE | 2021-08-27 13:47 | PHYS DOC ---
Past Medical History Past Medical History: Seizure Additional Past Medical Histor: Epilepsy, NON-COMPLIANT Past Surgical History: No Surgical History Smoking Status: Current Every Day Smoker Alcohol Use: Occasionally Drug Use: None General Adult EDM: Chief Complaint: SEIZURE HPI: HPI: 35-year-old male past medical history of epilepsy (noncompliant with medications) and marijuana use, presents the ED brought in by EMS with concern for witnessed seizure. Patient was recently seen in the emergency department within the past 24 hours, requested to be discharged. All labs and medications were given. History and review of systems limited upon arrival-patient is postictal. Review of Systems: Review of Systems: ROS: limited 2/2 postictal state Heart Score: C/O Chest Pain: No Risk Factors: Risk Factors: DM, Current or recent (<one month) smoker, HTN, HLP, family history of CAD, obesity. Risk Scores: Score 0 - 3: 2.5% MACE over next 6 weeks - Discharge Home Score 4 - 6: 20.3% MACE over next 6 weeks - Admit for Clinical Observation Score 7 - 10: 72.7% MACE over next 6 weeks - Early Invasive Strategies Current Medications: Current Medications Medications (Trade) Dose Ordered Sig/Zaid Start Time Stop Time Status Last Admin Dose Admin Levetiracetam 1000 mg/Dextrose 110 ml @ 440 mls/hr 1X ONCE 08/27/21 11:30 08/27/21 11:44 DC 08/27/21 11:49 440 MLS/HR Piperacillin Sod/ Tazobactam Sod 4.5 gm/Sodium Chloride 100 ml @ 200 mls/hr 1X ONCE 08/27/21 11:30 08/27/21 11:59 DC 08/27/21 12:14 200 MLS/HR Sodium Chloride 1,000 ml @ 1,000 mls/hr 1X ONCE 08/27/21 11:30 08/27/21 12:29 DC 08/27/21 11:48 1,000 MLS/HR Vancomycin HCl (Vanco Per Pharmacy) 1 each PRN DAILY PRN 08/27/21 11:30 UNV Vancomycin HCl 1.75 gm/Sodium Chloride 500 ml @ 250 mls/hr 1X ONCE 08/27/21 12:00 08/27/21 13:59 08/27/21 12:50 250 MLS/HR Allergies: Allergies: Allergies Coded Allergies Type Severity Reaction Last Updated Verified No Known Drug Allergies 08/27/21 No Physical Exam: PE: Constitutional: Well developed, well nourished, no acute distress, non-toxic appearance. HENT: Scalp hematoma, tongue contusion with no active bleeding Eyes: PERRLA, EOMI, conjunctiva normal, no discharge. Neck: Normal range of motion, supple, no midline step-off Cardiovascular: S1/2 present, regular rhythm Lungs & Thorax: Hypoxia requiring supplemental oxygen, bilateral equal chest rise, no tachypnea or increased work of breathing Abdomen: soft, no tenderness, no incontinence Skin: Warm, dry, no erythema, no rash. [] Back: No midline step offs, no CVA tenderness. [] Extremities: No tenderness, no cyanosis, no lower extremity edema Neurologic: Grimaces with sternal rub, normal motor function, normal sensory function, no focal deficits noted. [] Psychologic: Normal mood, flat affect Current Patient Data: Vital Signs: Vital Signs Date Time Temp Pulse Resp B/P (MAP) Pulse Ox O2 Delivery O2 Flow Rate FiO2 08/27/21 12:51 91 20 98 08/27/21 11:26 98.4 163/95 (117) Room Air 98.4 EKG: EKG: [] Radiology/Procedures: Radiology/Procedures: IMAGING REPORT Signed PATIENT: SYDNIE ARENAS ACCOUNT: [id number] : 1985 LOCATION: ER AGE: 35 SEX: M EXAM STATUS: PRE ER ORD. PHYSICIAN: DARWIN FARRAR DO REASON: hypoxia PROCEDURE: CHEST AP ONLY EXAM: Chest, single view. HISTORY: Hypoxia. COMPARISON: 04/02/2021 FINDINGS: A frontal view of the chest is obtained. There has been interval decrease in previously demonstrated diffuse right lung infiltrate. There has been slight interval decrease in left upper lobe infiltrate and there is stable left lower lobe infiltrate. There is no pleural effusion or pneumothorax. The heart is normal in size. IMPRESSION: Decreased right lung and left upper lobe infiltrate and stable left lower lobe infiltrate. Electronically signed by: Debbie Self MD (08/27/2021 8:47 AM) [id number] DICTATED and SIGNED BY: DEBBIE SELF MD DATE: 08/27/21 [id number] 0 IMAGING REPORT Signed PATIENT: SYDNIE ARENAS ACCOUNT: [id number] : 1985 LOCATION: ER AGE: 35 SEX: M EXAM STATUS: REG ER ORD. PHYSICIAN: DARWIN FARRAR DO REASON: confusion PROCEDURE: CT HEAD AND CERVICAL SPINE WO EXAM: Head and cervical spine CT without contrast. HISTORY: Confusion. TECHNIQUE: Computed tomographic images of the head and cervical spine were obtained without contrast. *One or more of the following individualized dose reduction techniques were utilized for this examination: 1. Automated exposure control. 2. Adjustment of the mA and/or kV according to patient size. 3. Use of iterative reconstruction technique. COMPARISON: 04/02/2021. FINDINGS: Head: There is no hemorrhage. There is no mass effect or midline shift. There is no hydrocephalus. The christianson-white matter differentiation pattern is intact. The orbits, visualized paranasal sinuses mastoid air cells are unremarkable. There is no suspicious calvarial lesion. Cervical spine: There is no listhesis. The vertebral bodies are normal in height and the disc spaces are preserved. There is no suspicious osseous lesion. There is no significant foraminal or central canal stenosis. There is groundglass infiltrate within the bilateral lung apices. There is no pneumothorax. IMPRESSION: 1. No acute intracranial finding or evidence of acute cervical spine trauma. Note is made that MRI is more sensitive for acute infarction. 2. Bilateral apical pulmonary infiltrate. Please refer to the separate report for the chest CT on the same date. Electronically signed by: Debbie Self MD (08/27/2021 10:11 AM) [id number] DICTATED and SIGNED BY: DEBBIE SEFL MD DATE: 08/27/21 [id number] 0 IMAGING REPORT Signed PATIENT: SYDNIE ARENAS ACCOUNT: [id number] : 1985 LOCATION: ER AGE: 35 SEX: M EXAM STATUS: REG ER ORD. PHYSICIAN: DARWIN FARRAR DO REASON: hypoxia, r/o pe PROCEDURE: CT ANGIOGRAPHY CHEST Examination: CT angiography chest with IV contrast HISTORY: History of hypoxia COMPARISON: 04/02/2021 TECHNIQUE: Axial CT angiographic images of chest were performed with IV contrast. Coronal and sagittal 3-D MIP reformats are performed Exposure: One or more of the following individualized dose reduction techniques were utilized for this examination: 1. Automated exposure control 2. Adjustment of the mA and/or kV according to patient size 3. Use of iterative reconstruction technique FINDINGS: The visualized thyroid gland grossly appears unremarkable. Central airways are patent. The caliber of the aorta grossly appears unremarkable. There is no evidence of filling defect identified in the main pulmonary arterial trunk and right and left main pulmonary arteries. There are multiple patchy alveolar airspace opacities identified in the bilateral lungs likely infiltrates or multilobar pneumonia. The liver, spleen, adrenals grossly appears unremarkable. No evidence of lytic bony destructive lesion. IMPRESSION: 1.No evidence of pulmonary embolism. 2. Multiple patchy alveolar airspace opacities identified in the bilateral lungs likely infiltrates or multilobar pneumonia. Follow-up to resolution. Electronically signed by: Meño Cantrell MD (08/27/2021 10:05 AM) [id number] DICTATED and SIGNED BY: MEÑO CANTRELL MD DATE: 08/27/21 [id number] 0 Course & Med Decision Making: Course & Med Decision Making Pertinent Labs and Imaging studies reviewed. (See chart for details) Concern for multifocal pneumonia and hypoxia requiring nasal cannula (similar presentation 03/2021 per emr review). CT images show new evidence of trauma, no pulmonary embolus. Patient remained postictal and thus was admitted to the hospitalist for further medical management. Shortly after admission/speaking to Dr. Armstrong, patient requested to be discharged AGAINST MEDICAL ADVICE stating he needed to care for his daughter. Pt with no active complaints, steady gait. Patient moved his IV. Patient has not treated with vancomycin, Zosyn and Keppra. The patient has decided to leave our facility against medical advice. I have assessed patient's ability to make informed decision and feel the patient has the capacity to comprehend information regarding the current medical condition and appreciates the impact of the disease or condition and the consequences of various options for treatment, including foregoing treatment. The patient possesses the ability to evaluate all treatment options, comparing the risks and benefits of each option, communicate his or her choice in a consistent manner over time, and is able to make rational choices. I explained to the patient further testing, treatment, and evaluation I would like to perform in the emergency department visit as well as any possible alternatives that can be accomplished in a timely manner. I have outlined the possible risks of fo regoing any or all of these interventions and the patient understands and acknowledges that the decision to leave may result in undesirable consequences such as , permanent disability, and/or loss of current lifestyle. Even though leaving AMA is not ideal, I have instructed the patient to follow any discharge instructions given, take any medications prescribed, and resume care as soon as possible with another provider. This conversation was witnessed by another member of the emergency department staff and we clearly communicated the patient is welcome to return anytime to continue care at our facility. Dragon Disclaimer: Dragon Disclaimer: This electronic medical record was generated, in whole or in part, using a voice recognition dictation system. Departure Departure Impression: Primary Impression: Aspiration pneumonia Additional Impressions: Epilepsy H/O medication noncompliance Disposition: LEFT AGAINST MEDICAL ADVICE Admitting Physician: JOSE LUIS (Dr. Armstrong) Condition: GUARDED Referrals: NO PCP (PCP) DARWIN FARRAR DO Aug 27, 2021 13:47
[2021-08-27] MEDS ORDERED: MORPHINE SULFATE 2 MG/ML INJ. IV PRN ×2 (14:00)
[2021-08-27] MEDS ORDERED: ONDANSETRON PF 4 MG/2 ML VIAL. IVP PRN (14:00)
[2021-08-27] MEDS ORDERED: ACETAMINOPHEN 325 MG TABLET. PO PRN (14:00)
[2021-08-27] MEDS ORDERED: ZOLPIDEM 5 MG TABLET. PO PRN (14:00)
[2021-08-27] MEDS ORDERED: oxyCODONE IR 5 MG TABLET PO PRN (14:00)
[2021-08-27] MEDS ORDERED: CALCIUM CARBONATE 500 MG TAB.CHEW PO PRN (14:00)
[2021-08-27] MEDS ORDERED: ELECTROLYTE (NON-ICU) PROTOCOL. MC PRN (14:00)
--- NOTE | 2021-08-27 14:25 | PHYS DOC ---
Past Medical History Past Medical History: Seizure Additional Past Medical Histor: Epilepsy, NON-COMPLIANT Past Surgical History: No Surgical History Smoking Status: Current Every Day Smoker Alcohol Use: Occasionally Drug Use: None General Adult EDM: Chief Complaint: SEIZURE HPI: HPI: 35-year-old male past medical history of epilepsy and marijuana use, presents o the ED brought by EMS after girlfriend called 911, concern for another seizure. Pt has been seen twice in the past 24 hours for poorly controlled epilepsy. Plan was to admit for aspiration pneumonia and patient left AMA. Review of Systems: Review of Systems: Constitutional: Denies fever or chills. [] Eyes: Denies change in visual acuity. [] HENT: Denies nasal congestion or sore throat. [] Respiratory: Denies cough or shortness of breath. [] Cardiovascular: Denies chest pain or edema. [] GI: Denies nausea or vomiting : Denies incontinence or saddle anesthesia Musculoskeletal: Denies back pain or joint pain. [] Integument: Denies rash or diaphoresis Neurologic: Denies headache, neck pain, focal weakness or sensory changes. [] Endocrine: Denies polyuria or polydipsia. [] Lymphatic: Denies swollen glands. [] Psychiatric: Denies depression or anxiety. [] Heart Score: C/O Chest Pain: No Risk Factors: Risk Factors: DM, Current or recent (<one month) smoker, HTN, HLP, family history of CAD, obesity. Risk Scores: Score 0 - 3: 2.5% MACE over next 6 weeks - Discharge Home Score 4 - 6: 20.3% MACE over next 6 weeks - Admit for Clinical Observation Score 7 - 10: 72.7% MACE over next 6 weeks - Early Invasive Strategies Current Medications: Current Medications Medications (Trade) Dose Ordered Sig/Zaid Start Time Stop Time Status Last Admin Dose Admin Acetaminophen (Tylenol) 650 mg PRN Q6HRS PRN 08/27/21 14:00 Ampicillin Sodium/ Sulbactam Sodium 3 gm/Sodium Chloride 100 ml @ 200 mls/hr 1X ONCE 08/27/21 14:00 08/27/21 14:29 UNV Calcium Carbonate/ Glycine (Tums) 500 mg PRN Q3HRS PRN 08/27/21 14:00 Doxycycline Hyclate (Vibra-Tab) 100 mg BID 08/27/21 21:00 Heparin Sodium (Porcine) (Heparin Sodium) 5,000 unit Q8HRS 08/27/21 22:00 Info (Non-Icu Electrolyte Protocol) 1 ea PRN DAILY PRN 08/27/21 14:00 Levetiracetam (Keppra) 500 mg BID 08/27/21 21:00 Levetiracetam 1000 mg/Dextrose 110 ml @ 440 mls/hr 1X ONCE 08/27/21 11:30 08/27/21 11:44 DC 08/27/21 11:49 440 MLS/HR Morphine Sulfate (Morphine Sulfate) 2 mg PRN Q1HR PRN 08/27/21 14:00 Ondansetron HCl (Zofran) 4 mg PRN Q6HRS PRN 08/27/21 14:00 Oxycodone HCl (Roxicodone) 5 mg PRN Q3HRS PRN 08/27/21 14:00 Piperacillin Sod/ Tazobactam Sod 4.5 gm/Sodium Chloride 100 ml @ 200 mls/hr 1X ONCE 08/27/21 11:30 08/27/21 11:59 DC 08/27/21 12:14 200 MLS/HR Senna/Docusate Sodium (Senna Plus) 1 tab BID 08/27/21 21:00 Sodium Chloride 1,000 ml @ 1,000 mls/hr 1X ONCE 08/27/21 11:30 08/27/21 12:29 DC 08/27/21 11:48 1,000 MLS/HR Vancomycin HCl (Vanco Per Pharmacy) 1 each PRN DAILY PRN 08/27/21 11:30 UNV Vancomycin HCl 1.75 gm/Sodium Chloride 500 ml @ 250 mls/hr 1X ONCE 08/27/21 12:00 08/27/21 13:59 DC 08/27/21 12:50 250 MLS/HR Zolpidem Tartrate (Ambien) 5 mg PRN QHS PRN 08/27/21 14:00 Allergies: Allergies: Allergies Coded Allergies Type Severity Reaction Last Updated Verified No Known Drug Allergies 08/27/21 No Physical Exam: PE: Constitutional: Smells of marijuana, no acute distress, non-toxic appearance. HENT: Normocephalic, atraumatic, no no signs of head trauma Eyes: PERRLA, EOMI, conjunctiva normal, no discharge. Neck: Normal range of motion, supple, Cardiovascular: S1/2 present, regular rhythm Lungs & Thorax: Speaking in full sentences, bilateral equal chest rise, no tachypnea or increased work of breathing Abdomen: soft, no tenderness, Skin: Warm, dry, no erythema, no rash. [] Back: No Spinal step-offs or tenderness, no CVA tenderness. [] Extremities: No tenderness, no cyanosis, no lower extremity edema Neurologic: Alert and oriented X 3, normal motor function, normal sensory function, no focal deficits noted. [] Psychologic: Affect normal, judgement normal, mood normal. [] Current Patient Data: Vital Signs: Vital Signs Date Time Temp Pulse Resp B/P (MAP) Pulse Ox O2 Delivery O2 Flow Rate FiO2 08/27/21 12:51 91 20 98 08/27/21 11:26 98.4 163/95 (117) Room Air 98.4 EKG: EKG: [] Radiology/Procedures: Radiology/Procedures: [] Course & Med Decision Making: Course & Med Decision Making Pertinent Labs and Imaging studies reviewed. (See chart for details) Concern for multifocal, aspiration pneumonia and poorly controlled epilepsy due to medication noncompliance and marijuana use. Labs from earlier today. Patient agrees for admission at this time-accepted by Dr. Thomas. I have spoken with the patient and/or caregivers. I have explained the patient's condition, diagnosis and treatment plan based on the information available to me at this time. I have answered the patient's and/or caregivers questions and answered any concerns. The patient and/or caregivers have as good an understanding of the patient's diagnosis, condition and treatment plan as can be expected at this point. The patient has been stabilized within the capability of the emergency department. The patient will be transported for further care and management or will be moved to an observation or inpatient service. I have communicated with the staff or medical practitioner taking over this patient's care. Louie Disclaimer: Louie Disclaimer: This electronic medical record was generated, in whole or in part, using a voice recognition dictation system. Departure Departure Impression: Primary Impression: Aspiration pneumonia Additional Impressions: Epilepsy H/O medication noncompliance Disposition: ADMITTED INPATIENT Admitting Physician: [facility] (Dr. Thomas) Condition: GUARDED Referrals: NO PCP (PCP) VODARWIN STAPLES DO Aug 27, 2021 14:25
[2021-08-27 15:02] VITALS: BP 149/84
--- NOTE | 2021-08-27 15:56 | NUR ---
Pharmacy Vancomycin Dosing Note S:Consulted to monitor and dose vancomycin started 08/27/21. O:SYDNIE ARENAS is a 35 year old M with Pneumonia . Height: 5 feet, 8 inches Weight: 72.7 kg [place] Body Weight: 68.40 Adjusted Body Weight: 70.12 Dosing Weight: Actual Other Antibiotics: UNASYN DOXYCYCLINE LABS: Last BUN: 10 Last Creatinine: 1.2 Creatinine Clearance: 87 mL/min Last WBC: 15.6 Last Procalcitonin: Tmax (past 24 hours): 98.4 Microbiology: I/O: Drug Levels: Last level: on at Last dose given 08/27/21 at 1250 Vancomycin Dosing: Loading Dose: 1750 mg x1 Dosing Weight: Actual Target Trough: 15-20 A: Based on: Body weight and renal function P: 1. After loading dose, start Vancomycin 1250 mg IV q12h 2. Follow up Trough level on 08/29/21 at 0030 3. Pharmacy will continue to monitor, follow and adjust therapy as needed. MARCIE BENSON [facility], 08/27/21 [id number]
--- NOTE | 2021-08-27 16:14 | PDOC1 ---
History and Physical Date of Service: DOS: DATE: 08/27/21 TIME: 16:07 History of Present Illness: HPI: History obtained from discussion with the ED physician and chart 35-year-old male with past medical history of epilepsy and noncompliant with his medications marijuana use comes to the ED after having a witnessed seizure. Apparently patient was requesting to be discharged from the ED and actually left AGAINST MEDICAL ADVICE. Girlfriend brought patient back in because he was having a seizure. Aspiration pneumonia on CT of the chest. Patient will be admitted to the hospital for IV antibiotics. At the time of my interview patient was in left lateral decubitus position curled up. Not having any respiratory distress. He states that he was noncompliant with his medications and he is complaining of some pain throughout his whole body. Denies fevers, chest pain, abdominal pain or hematuria or dysuria. Past Medical/Surgical History: PMH/PSH: Past Medical History: Seizure, Epilepsy, NON-COMPLIANT Past Surgical History: No Surgical History Allergies: Allergies: Coded Allergies: No Known Drug Allergies (Unverified , 08/27/21) Family History: Family History: Reviewed with no relevant findings Social History: Social History: Smoking Status: Current Every Day Smoker Alcohol Use: Occasionally Drug Use: None Current Medications: Current Medications Current Medications Piperacillin Sod/ Tazobactam Sod 4.5 gm/Sodium Chloride 100 ml @ 200 mls/hr 1X ONCE IV Last administered on 08/27/21at 12:14; Start 08/27/21 at 11:30; Stop 08/27/21 at 11:59; Status DC Vancomycin HCl (Vanco Per Pharmacy) 1 each PRN DAILY PRN MC SEE COMMENTS Last administered on 08/27/21at 15:55; Start 08/27/21 at 11:30 Sodium Chloride 1,000 ml @ 1,000 mls/hr 1X ONCE IV Last administered on 08/27/21at 11:48; Start 08/27/21 at 11:30; Stop 08/27/21 at 12:29; Status DC Levetiracetam 1000 mg/Dextrose 110 ml @ 440 mls/hr 1X ONCE IV Last administered on 08/27/21at 11:49; Start 08/27/21 at 11:30; Stop 08/27/21 at 11:44; Status DC Vancomycin HCl 1.75 gm/Sodium Chloride 500 ml @ 250 mls/hr 1X ONCE IV Last administered on 08/27/21at 12:50; Start 08/27/21 at 12:00; Stop 08/27/21 at 13:59; Status DC Levetiracetam (Keppra) 500 mg BID PO ; Start 08/27/21 at 21:00 Ampicillin Sodium/ Sulbactam Sodium 3 gm/Sodium Chloride 100 ml @ 200 mls/hr 1X ONCE IV ; Start 08/27/21 at 18:00; Stop 08/27/21 at 18:29; Status Cancel Doxycycline Hyclate (Vibra-Tab) 100 mg BID PO ; Start 08/27/21 at 21:00 Ondansetron HCl (Zofran) 4 mg PRN Q6HRS PRN IVP NAUSEA/VOMITING; Start 08/27/21 at 14:00 Calcium Carbonate/ Glycine (Tums) 500 mg PRN Q3HRS PRN PO UPSET STOMACH; Start 08/27/21 at 14:00 Zolpidem Tartrate (Ambien) 5 mg PRN QHS PRN PO INSOMNIA, MAY REPEAT IN 1HR; Start 08/27/21 at 14:00 Info (Non-Icu Electrolyte Protocol) 1 ea PRN DAILY PRN MC SEE COMMENTS; Start 08/27/21 at 14:00 Oxycodone HCl (Roxicodone) 5 mg PRN Q3HRS PRN PO BREAKTHROUGH PAIN; Start 08/27/21 at 14:00 Morphine Sulfate (Morphine Sulfate) 1 mg PRN Q1HR PRN IV MODERATE PAIN; Start 08/27/21 at 14:00 Morphine Sulfate (Morphine Sulfate) 2 mg PRN Q1HR PRN IV SEVERE PAIN; Start 08/27/21 at 14:00 Acetaminophen (Tylenol) 650 mg PRN Q6HRS PRN PO Headaches, Temp > 101.5F; Start 08/27/21 at 14:00 Senna/Docusate Sodium (Senna Plus) 1 tab BID PO ; Start 08/27/21 at 21:00 Heparin Sodium (Porcine) (Heparin Sodium) 5,000 unit Q8HRS SQ ; Start 08/27/21 at 22:00 Ampicillin Sodium/ Sulbactam Sodium 3 gm/Sodium Chloride 100 ml @ 200 mls/hr Q6HRS IV ; Start 08/27/21 at 18:00 Vancomycin HCl 1.25 gm/Sodium Chloride 250 ml @ 167 mls/hr Q12H IV ; Start 08/28/21 at 01:00 Vancomycin HCl (Vancomycin Trough Level) 1 each 1X ONCE MC ; Start 08/29/21 at 00:30; Stop 08/29/21 at 00:31 Active Scripts Active Zithromax (Azithromycin) 250 Mg Tablet 1 Pkg PO UD Augmentin 875-125 Tablet (Amoxicillin/Potassium Clav) 1 Each Tablet 1 Tab PO BID 10 Days Keppra (Levetiracetam) 500 Mg Tablet 1 Tab PO BID 30 Days Keppra (Levetiracetam) 500 Mg Tablet 1 Tab PO BID 30 Days Keppra (Levetiracetam) 500 Mg Tablet 1 Tab PO BID Augmentin 875-125 Tablet (Amoxicillin/Potassium Clav) 1 Each Tablet 1 Tab PO BID Keppra (Levetiracetam) 500 Mg Tablet 1 Tab PO BID ROS: Review of Systems Review of System REVIEW OF SYSTEMS: GENERAL: Denies weakness SKIN: No bruising, hair changes or rashes. EYES: No blurred, double or loss of vision. NOSE AND THROAT: No history of nosebleeds, hoarseness or sore throat. HEART: No history of palpitations, chest pain or shortness of breath on exertion. LUNGS: Denies cough, hemoptysis, wheezing or shortness of breath. GASTROINTESTINAL: Denies changes in appetite, nausea, vomiting, diarrhea or constipation. GENITOURINARY: No history of frequency, urgency, hesitancy or nocturia. NEUROLOGIC: Denies history of numbness, tingling, or tremor. PSYCHIATRIC: No history of panic, anxiety or depression. ENDOCRINE: No history of heat or cold intolerance, polyuria or polydipsia. EXTREMITIES: Denies joint pain, pain on walking or stiffness. Physical Exam: Vital Signs: Vital Signs Date Time Temp Pulse Resp B/P (MAP) Pulse Ox O2 Delivery O2 Flow Rate FiO2 08/27/21 15:02 96 24 97 08/27/21 11:26 98.4 163/95 (117) Room Air 98.4 Physcial Exam: General: Well developed, well nourished, no acute distress, well appearing HEENT: Pupils equally round and reactive to light, EOMI, no discharge, normal conjunctiva Neck: Supple, no nuchal rigidity, no JVD, trachea midline, no tenderness Cardiac: RRR, no murmurs, no gallops, no rubs Chest/Lungs: CTAB, no wheeze, no rhonchi, no crackles Abdomen: soft, non-distended, no guarding, no peritoneal signs, non-tender Back: No tenderness Extremities: no edema, pulses intact, non-tender,capillary refill <3 sec bilateral upper and lower extremities, Neuro: Alert and oriented x 4, no focal deficits, normal speech Labs: Labs: Labs reviewed from prior admission within the last 24 hours Images: Images PROCEDURE: CT ANGIOGRAPHY CHEST IMPRESSION: 1.No evidence of pulmonary embolism. 2. Multiple patchy alveolar airspace opacities identified in the bilateral lungs likely infiltrates or multilobar pneumonia. Follow-up to resolution. PROCEDURE: CT HEAD AND CERVICAL SPINE WO IMPRESSION: 1. No acute intracranial finding or evidence of acute cervical spine trauma. Note is made that MRI is more sensitive for acute infarction. 2. Bilateral apical pulmonary infiltrate. Please refer to the separate report for the chest CT on the same date. Assessment/Plan Assessment/Plan Aspiration pneumonia secondary to uncontrolled seizures Epilepsy Medical noncompliance Admit to hospitalist service for further management Seizure precautions Continue empiric IV antibiotics Pending blood and sputum cultures Neurology consult Continue Keppra for seizure prophylaxis Ativan IV for uncontrolled generalized seizures Heparin for DVT prophylaxis Protonix GI prophylaxis ADA diet CODE STATUS full Discussed with RN and SW Disposition inpatient management as above DPOA: Ms. Robledo, girlfriend Smoking cessation: Total time spent was 12 minutes in face to face counseling. Patient has agreed to consider nicotine patches/gum or to start on Varnicline when discharged Justifications for Admission Other Justification NICOLE WETZEL MD Aug 27, 2021 16:14
--- NOTE | 2021-08-27 17:13 | NUR ---
Admission note..............patient arrived on unit via wheelchair at approximately 1600. RN introduced self and started admission assessment. patient asked how long he would be here. RN stated he will be here overnight to observe for seizure activity. he stated he needs to leave, he has a little girl to take care of. RN advised against leaving AMA and the risks involved. the patient still wishing to leave AMA. Doctor Thomas and nursing real estate office supervisor informed.
[2021-08-27] MEDS ORDERED: AMPICILLIN/SULBACTAM 3 GM in IV NORMAL SALINE 100ML 100 ML IV ONE (18:00)
[2021-08-27] MEDS ORDERED: AMPICILLIN/SULBACTAM 3 GM in IV NORMAL SALINE 100ML 100 ML IV SCH (18:00)
--- NOTE | 2021-08-27 18:19 | NUR ---
patient left AMA at approximately 1750, escorted out by this RN and a Mail Inserter. 20 guage IV left FA removed, tip intact.
[2021-08-27] MEDS ORDERED: SENNOSIDES/DOCUSATE 8.6/50MG TABLET. PO SCH (21:00)
[2021-08-27] MEDS ORDERED: levETIRAcetam 500 MG TABLET PO SCH (21:00)
[2021-08-27] MEDS ORDERED: DOXYCYCLINE HYCLATE 100 MG TABLET PO SCH (21:00)
[2021-08-27] MEDS ORDERED: HEPARIN for SUB-Q USE 5,000 UNIT/ML VIAL. SQ SCH (22:00)
[2021-08-28] MEDS ORDERED: VANCOMYCIN 1.25 GM in IV NORMAL SALINE 250ML 250 ML IV SCH (01:00)
== END 2021-08-27 17:50 | disposition left against medical advice (07) | DRG 100 ==
LOC: ER 11:09 → 5 SOUTH 13:45
PROVIDERS: ADMIT Student in an Organized Health Care Education/Training Program; ATTEND Student in an Organized Health Care Education/Training Program
DX: G40.909 Epilepsy, unspecified, not intractable, without status epilepticus (principal); J69.0 Pneumonitis due to inhalation of food and vomit; F17.200 Nicotine dependence, unspecified, uncomplicated; Z53.29 Procedure and treatment not carried out because of patient's decision for other reasons; Z91.14 Patient's other noncompliance with medication regimen
CPT/HCPCS: 96365; 96367; J1953; J2543; J3370; J7030; J7040; J7060; 99285-25; G0378

== ENCOUNTER 2022-01-22 05:56 | Emergency (ER) | payer SELFPAY ==
[~2022-01-22] VITALS: Ht 165.1 cm; Wt 70.9 kg
--- NOTE | 2022-01-22 06:23 | PHYS DOC ---
Past Medical History Past Medical History: Seizure Additional Past Medical Histor: Epilepsy, NON-COMPLIANT Past Surgical History: No Surgical History Smoking Status: Current Every Day Smoker Alcohol Use: Occasionally Drug Use: None General Adult EDM: Chief Complaint: SEIZURE HPI: HPI: Patient is a 36 year old male presents to the ER with a seizure. Patient states that he has 1 seizure approximately every month. Patient is noncompliant with his Keppra. States that he continues to have seizures even though he takes Keppra and so stopped. Patient does not recall the events prior to the seizure today. Does not know the length of the seizure today. Review of Systems: Review of Systems: Constitutional: Denies fever or chills. Eyes: Denies change in visual acuity. HENT: Denies nasal congestion or sore throat. [ Respiratory: Denies cough or shortness of breath. Cardiovascular: Denies chest pain or edema. GI: Denies abdominal pain, nausea, vomiting, bloody stools or diarrhea. : Denies dysuria. Musculoskeletal: Denies back pain or joint pain. Integument: Denies rash. Neurologic: Seizure denies headache, focal weakness or sensory changes. Endocrine: Denies polyuria or polydipsia. Lymphatic: Denies swollen glands. Psychiatric: Denies depression or anxiety. Heart Score: C/O Chest Pain: No Risk Factors: Risk Factors: DM, Current or recent (<one month) smoker, HTN, HLP, family history of CAD, obesity. Risk Scores: Score 0 - 3: 2.5% MACE over next 6 weeks - Discharge Home Score 4 - 6: 20.3% MACE over next 6 weeks - Admit for Clinical Observation Score 7 - 10: 72.7% MACE over next 6 weeks - Early Invasive Strategies Allergies: Allergies: Allergies Coded Allergies Type Severity Reaction Last Updated Verified No Known Drug Allergies 08/27/21 No Physical Exam: PE: Constitutional: Lethargic well developed, well nourished, no acute distress, non-toxic appearance. [] HENT: Normocephalic, atraumatic, bilateral external ears normal, oropharynx moist, no oral exudates, nose normal. [] Eyes: PERRLA, EOMI, conjunctiva normal, no discharge. [] Neck: Normal range of motion, no tenderness, supple, no stridor. [] Cardiovascular:Heart rate regular rhythm, no murmur [] Lungs & Thorax: Bilateral breath sounds clear to auscultation [] Abdomen: Bowel sounds normal, soft, no tenderness, no masses, no pulsatile masses. [] Skin: Warm, dry, no erythema, no rash. [] Back: No tenderness, no CVA tenderness. [] Extremities: No tenderness, no cyanosis, no clubbing, ROM intact, no edema. [] Neurologic: Alert and oriented X 3, normal motor function, normal sensory function, no focal deficits noted. [] Psychologic: Affect normal, judgement normal, mood normal. [] Current Patient Data: Vital Signs: Vital Signs Date Time Temp Pulse Resp B/P (MAP) Pulse Ox O2 Delivery O2 Flow Rate FiO2 01/22/22 06:00 97.2 114 17 125/84 (98) 100 Room Air 97.2 EKG: EKG: [] Normal sinus rhythm heart rate of 83. Early repole no evidence of ischemic changes Radiology/Procedures: Radiology/Procedures: [] Course & Med Decision Making: Course & Med Decision Making Pertinent Labs and Imaging studies reviewed. (See chart for details) [] Patient back to his baseline. Return precautions were discussed patient u nderstands that he needs to continue taking his medications and follow-up with his neurologist. Patient has verbalizes understanding repeated instructions back to me. Louie Disclaimer: Louie Disclaimer: This electronic medical record was generated, in whole or in part, using a voice recognition dictation system. Departure Departure Referrals: NO PCP (PCP) MARCEL GOULD DO Jan 22, 2022 06:23
[2022-01-22 06:43] LABS: CALCIUM 9.1 mg/dL (8.5-10.1); CREATININE 1.3 mg/dL (0.7-1.3); GFR 76.5; POTASSIUM 3.5 mmol/L (3.5-5.1)
[2022-01-22 06:44] LABS: BASO % 1 % (0-3); EOS # 0.1 x10^3/uL (0.0-0.7); EOS % 1 % (0-3); HEMOGLOBIN 14.2 g/dL (13.0-17.5); LYMPH # 2.9 x10^3/uL (1.0-4.8); LYMPH % 37 % (24-48); MEAN CORPUSCULAR HEMOGLOBIN 28 pg (25-35); MEAN CORPUSCULAR HGB CONC 34 g/dL (31-37); MEAN CORPUSCULAR VOLUME 83 fL (79-100); MONO # 0.9 x10^3/uL (0.0-1.1); MONO % 11 % (0-9); NEUT # 3.9 x10^3/uL (1.8-7.7); NEUT % 50 % (31-73); PLATELET COUNT 217 x10^3/uL (140-400); RED BLOOD COUNT 5.03 x10^6/uL (4.30-5.70); RED CELL DISTRIBUTION WIDTH 14.8 % (11.5-14.5); WHITE BLOOD COUNT 7.8 x10^3/uL (4.0-11.0)
[2022-01-22 06:49] LABS: ALBUMIN 4.1 g/dL (3.4-5.0); MAGNESIUM 1.9 mg/dL (1.8-2.4); PHOSPHORUS 2.2 mg/dL (2.6-4.7); TOTAL BILIRUBIN 0.8 mg/dL (0.2-1.0); TOTAL PROTEIN 8.1 g/dL (6.4-8.2)
[2022-01-22] MEDS ORDERED: IV NORMAL SALINE 1000ML BAG 1,000 ML IV ONE (07:00)
[2022-01-22] MEDS ORDERED: levETIRAcetam 1,000mg PREMIX 100 ML IV ONE (08:30)
[2022-01-22] MEDS ORDERED: SODIUM PHOSPHATE 20 MMOL in IV NORMAL SALINE 250ML 250 ML IV ONE (08:30)
--- NOTE | 2022-01-22 09:29 | EKG ---
[facility] [address] [place] [address] Test Date: 2022-01-22 Test Time: 07:04:11 Pat Name: SYDNIE ARENAS Department: Room: Gender: M [employer]: : 1985 Requested By: MARCEL GOULD Order Number: [id number] Reading MD: Dalton Mosley Measurements Intervals [place] Rate: 83 P: MN: QRS: 74 QRSD: 82 T: 62 QT: 356 QTc: 419 Interpretive Statements SINUS RHYTHM Electronically Signed On 01-25-2022 13:43:58 CDT by Dalton Mosley
[2022-01-22 10:23] VITALS: BP 121/71
== END 2022-01-22 10:37 | disposition home or self-care (01) ==
LOC: ER 05:56
DX: G40.909 Epilepsy, unspecified, not intractable, without status epilepticus (principal); F17.200 Nicotine dependence, unspecified, uncomplicated
CPT/HCPCS: 80053; 80177; 83735; 84100; 85025; 93005; 96361; 96365; 96368; 99285; J7030; J7050; 36415

== ENCOUNTER 2022-02-06 06:35 | Emergency (ER) | payer SELFPAY ==
[~2022-02-06] VITALS: Ht 167.6 cm; Wt 70.0 kg
--- NOTE | 2022-02-06 06:43 | PHYS DOC ---
Past Medical History Past Medical History: Seizure Additional Past Medical Histor: Epilepsy, NON-COMPLIANT Past Surgical History: No Surgical History Smoking Status: Current Every Day Smoker Alcohol Use: Occasionally Drug Use: None Adult General Chief Complaint Chief Complaint: SEIZURE HPI HPI Patient is a 36 year old male who presents with seizure. Patient was witnessed by family member to have seizure earlier this morning. EMS was called. On arrival, EMS reports he was postictal. Patient states he does have seizures frequently and he is not compliant with medications Review of Systems Review of Systems Constitutional: Denies fever or chills Eyes: Denies change in visual acuity HENT: Denies nasal congestion or sore throat Respiratory: Denies cough or shortness of breath Cardiovascular: No additional information not addressed in HPI GI: Denies abdominal pain, nausea, vomiting, bloody stools or diarrhea : Denies dysuria or hematuria Musculoskeletal: Denies back pain or joint pain Integument: Denies rash or skin lesions Neurologic: hx of seizure d/o Endocrine: Denies polyuria or polydipsia All other systems were reviewed and found to be within normal limits, except as documented in this note. Current Medications Current Medications Current Medications Medications (Trade) Dose Ordered Sig/Zaid Start Time Stop Time Status Last Admin Dose Admin Aspirin (Aspirin Chewable) 324 mg 1X ONCE 02/06/22 08:45 02/06/22 08:56 DC 02/06/22 08:51 324 MG Levetiracetam 100 ml @ 400 mls/hr 1X ONCE 02/06/22 07:00 02/06/22 07:14 DC 02/06/22 07:06 400 MLS/HR Lorazepam (Ativan Inj) 0.25 mg 1X ONCE 02/06/22 07:00 02/06/22 07:01 DC 02/06/22 07:23 0.25 MG Allergies Allergies Allergies Coded Allergies Type Severity Reaction Last Updated Verified No Known Drug Allergies 08/27/21 No Physical Exam Physical Exam Constitutional: Well developed, well nourished, no acute distress, non-toxic appearance. HENT: Normocephalic, atraumatic, bilateral external ears normal, oropharynx moist, no oral exudates, nose normal. Eyes: PERRLA, EOMI, conjunctiva normal, no discharge. Neck: Normal range of motion, no tenderness, supple, no stridor. Cardiovascular:Heart rate regular rhythm, no murmur Lungs & Thorax: Bilateral breath sounds clear to auscultation Skin: Warm, dry, no erythema, no rash. Back: No tenderness, no CVA tenderness. Extremities: No tenderness, no cyanosis, no clubbing, ROM intact, no edema. Neurologic: Alert and oriented X 3, normal motor function, normal sensory function Psychologic: Affect normal Current Patient Data Vital Signs Vital Signs Date Time Temp Pulse Resp B/P (MAP) Pulse Ox O2 Delivery O2 Flow Rate FiO2 02/06/22 08:52 80 16 92 02/06/22 06:35 98.6 219/91 (133) 98.6 Lab Values Laboratory Tests Test 02/06/22 07:14 D-Dimer (Pat) 3.28 ug/mlFEU (0.00-0.50) H EKG EKG [] Radiology/Procedures Radiology/Procedures [] Course & Med Decision Making Course & Med Decision Making Pertinent Labs and Imaging studies reviewed. (See chart for details) Seen and examined on arrival to his room. No acute distress. Did not remember having a seizure. Remembers waking up in the ambulance. States he is noncompliant with seizure medications because he does not like to take it. No recent illness. No acute complaints at this time. Did not sustain any trauma secondary to seizure that he had earlier today. IV is ordered and will give Keppra load and small dose of Ativan and observe. 08:45: Reevaluated. Resting comfortably and arouses easily. Normal vital signs. No additional seizure activity. Keppra load is now complete. 09:30: Continues to be in very good condition. No additional seizure activity. Observed in the emergency department for 3 hours. Stable for discharge home. Given prescription for Keppra 500 mg twice daily and I recommended strongly that he began to take the medication. Patient states he did not have a financial barrier to affording the medication. He was offered Dilantin daily dialysis if Keppra would be too expensive but he declined that. Louie Disclaimer Louie Disclaimer This electronic medical record was generated, in whole or in part, using a voice recognition dictation system. Departure Departure Impression: Primary Impression: Seizure Disposition: 01 HOME / SELF CARE / HOMELESS Condition: IMPROVED Referrals: NO PCP (PCP) Patient Instructions: Seizure Disorder, Child, Generalized Tonic-Clonic Scripts Levetiracetam (KEPPRA) 500 Mg Tablet 1 TAB PO BID for 30 Days, #60 TAB 1 Refill Prov: JULISSA GOFF DO 02/06/22 JULISSA GOFF DO Feb 06, 2022 06:43
[2022-02-06] MEDS ORDERED: levETIRAcetam 1,000mg PREMIX 100 ML IV ONE (07:00)
[2022-02-06] MEDS ORDERED: ASPIRIN CHEWABLE 81 MG TABLET. PO ONE (08:45)
[2022-02-06] MEDS ORDERED: LEVE500T56 PO (09:29)
[2022-02-06 09:53] VITALS: BP 132/75
== END 2022-02-06 10:29 | disposition home or self-care (01) ==
LOC: ER 06:35
DX: G40.909 Epilepsy, unspecified, not intractable, without status epilepticus (principal); F17.200 Nicotine dependence, unspecified, uncomplicated
CPT/HCPCS: 36415; 85379; 96365; 96366; 96375; 99285; J2060

== ENCOUNTER 2022-03-09 09:25 | Emergency (ER) | payer SELFPAY ==
[~2022-03-09] VITALS: Ht 172.7 cm; Wt 84.0 kg
[2022-03-09] MEDS ORDERED: levETIRAcetam 1,000mg PREMIX 100 ML IV ONE (09:30)
--- NOTE | 2022-03-09 09:34 | PHYS DOC ---
Past Medical History Past Medical History: Seizure Additional Past Medical Histor: Epilepsy, NON-COMPLIANT Past Surgical History: No Surgical History Smoking Status: Current Every Day Smoker Alcohol Use: None Drug Use: None Adult General Chief Complaint Chief Complaint: SEIZURE HPI HPI Patient is a 36 year old male presenting to the emergency department for evaluation of a seizure that occurred earlier this morning. Reportedly was tonic-clonic generalized. Patient has a history of seizures and is reportedly supposed to take Keppra but is noncompliant. EMS reports and prior notes report that patient has a seizure once every month [facility]. Patient says that he is not having any pain and he feels well overall. I asked why he is not taking his medications and he said he did not know he was supposed to be on medications for seizures. It appears the patient was supposed to be admitted in August of last year for a seizure and was also seen January 22 and for seizures and was given prescriptions for Keppra. Patient is in no acute distress with tachycardia noted but otherwise normal vital signs. Review of Systems Review of Systems Constitutional: Denies fever or chills [] Eyes: Denies change in visual acuity, redness, or eye pain [] HENT: Denies nasal congestion or sore throat [] Respiratory: Denies cough or shortness of breath [] Cardiovascular: No additional information not addressed in HPI [] GI: Denies abdominal pain, nausea, vomiting, bloody stools or diarrhea [] : Denies dysuria or hematuria [] Musculoskeletal: Denies back pain or joint pain [] Integument: Denies rash or skin lesions [] Neurologic: Denies headache, focal weakness or sensory changes [] All other systems were reviewed and found to be within normal limits, except as documented in this note. Current Medications Current Medications Current Medications Medications (Trade) Dose Ordered Sig/Zaid Start Time Stop Time Status Last Admin Dose Admin Levetiracetam 100 ml @ 400 mls/hr 1X ONCE 03/09/22 09:30 03/09/22 09:44 DC 03/09/22 09:55 400 MLS/HR Lorazepam (Ativan Inj) 1 mg 1X ONCE 03/09/22 09:30 03/09/22 09:32 DC 03/09/22 09:55 1 MG Allergies Allergies Allergies Coded Allergies Type Severity Reaction Last Updated Verified No Known Drug Allergies 08/27/21 No Physical Exam Physical Exam Constitutional: Well developed, well nourished, no acute distress, non-toxic appearance. [] HENT: Normocephalic, atraumatic, bilateral external ears normal, oropharynx moist, no oral exudates, nose normal. [] Eyes: PERRLA, EOMI, conjunctiva normal, no discharge. [] Neck: Normal range of motion, no tenderness, supple, no stridor. [] Cardiovascular:Heart rate tachycardic with regular rhythm, no murmur [] Lungs & Thorax: Bilateral breath sounds clear to auscultation [] Abdomen: Bowel sounds normal, soft, no tenderness, no masses, no pulsatile masses. [] Skin: Warm, dry, no erythema, no rash. [] Back: No tenderness, no CVA tenderness. [] Extremities: No tenderness, no cyanosis, no clubbing, ROM intact, no edema. [] Neurologic: Alert and oriented X 3, normal motor function, normal sensory function, no focal deficits noted. [] Current Patient Data Vital Signs Vital Signs Date Time Temp Pulse Resp B/P (MAP) Pulse Ox O2 Delivery O2 Flow Rate FiO2 03/09/22 13:01 88 20 136/77 (96) 98 Room Air 03/09/22 09:28 97.6 97.6 Lab Values Laboratory Tests Test 03/09/22 09:30 White Blood Count 6.3 x10^3/uL (4.0-11.0) Red Blood Count 5.37 x10^6/uL (4.30-5.70) Hemoglobin 15.1 g/dL (13.0-17.5) Hematocrit 45.1 % (39.0-53.0) Mean Corpuscular Volume 84 fL (79-100) Mean Corpuscular Hemoglobin 28 pg (25-35) Mean Corpuscular Hemoglobin Concent 33 g/dL (31-37) Red Cell Distribution Width 14.5 % (11.5-14.5) Platelet Count 216 x10^3/uL (140-400) Neutrophils (%) (Auto) 33 % (31-73) Lymphocytes (%) (Auto) 53 % (24-48) H Monocytes (%) (Auto) 12 % (0-9) H Eosinophils (%) (Auto) 1 % (0-3) Basophils (%) (Auto) 1 % (0-3) Neutrophils # (Auto) 2.1 x10^3/uL (1.8-7.7) Lymphocytes # (Auto) 3.3 x10^3/uL (1.0-4.8) Monocytes # (Auto) 0.7 x10^3/uL (0.0-1.1) Eosinophils # (Auto) 0.1 x10^3/uL (0.0-0.7) Basophils # (Auto) 0.1 x10^3/uL (0.0-0.2) Sodium Level 140 mmol/L (136-145) Potassium Level 4.2 mmol/L (3.5-5.1) Chloride Level 104 mmol/L (98-107) Carbon Dioxide Level 18 mmol/L (21-32) L Anion Gap 18 (6-14) H Blood Urea Nitrogen 11 mg/dL (8-26) Creatinine 1.3 mg/dL (0.7-1.3) Estimated GFR (Cockcroft-Gault) 76.5 BUN/Creatinine Ratio 8 (6-20) Glucose Level 95 mg/dL (70-99) Calcium Level 9.2 mg/dL (8.5-10.1) Total Bilirubin 0.4 mg/dL (0.2-1.0) Aspartate Amino Transferase (AST) 15 U/L (15-37) Alanine Aminotransferase (ALT) 17 U/L (16-63) Alkaline Phosphatase 74 U/L (46-116) Total Protein 7.7 g/dL (6.4-8.2) Albumin 3.7 g/dL (3.4-5.0) Albumin/Globulin Ratio 0.9 (1.0-1.7) L Laboratory Tests 03/09/22 09:30 Laboratory Tests 03/09/22 09:30 EKG EKG Sinus tachycardia at 106 bpm with normal axis no deviation no ST elevation or depression and normal T waves. Radiology/Procedures Radiology/Procedures [] Course & Med Decision Making Course & Med Decision Making Patient has a benign initial neurologic exam except he is slightly tired. Patient will get basic seizure work-up and be given Ativan and Keppra and I will reassess. Patient's work-up is negative for acute process but I discussed all incidental findings and the need for follow-up. Patient was observed for 4 hours in the emergency department and his significant other agrees that he is now at his baseline and is comfortable taking him home. He has repeat normal neurologic exam and is requesting a prescription for Keppra however the significant other expressed skepticism that the patient will actually take his prescribed medications. Given patient appears well with normal vital signs benign physical exam work-up and is asking to go home I will discharge him in stable condition. His repeat heart rate is 74. I answered all questions to patient and significant other prior to discharge. Dragon Disclaimer Dragon Disclaimer This electronic medical record was generated, in whole or in part, using a voice recognition dictation system. Departure Departure Impression: Primary Impression: H/O medication noncompliance Additional Impression: Seizure Disposition: 01 HOME / SELF CARE / HOMELESS Condition: STABLE Referrals: NO PCP (PCP) Patient Instructions: Seizure, Adult Scripts Levetiracetam (KEPPRA) 500 Mg Tablet 1 TAB PO BID for 30 Days, #60 TAB 0 Refills Prov: RAYNA WINTER DO 03/09/22 Problem Qualifiers RAYNA WINTER DO March 09, 2022 09:34
[2022-03-09 09:44] LABS: BASO # 0.1 x10^3/uL (0.0-0.2); BASO % 1 % (0-3); EOS # 0.1 x10^3/uL (0.0-0.7); EOS % 1 % (0-3); HEMATOCRIT 45.1 % (39.0-53.0); HEMOGLOBIN 15.1 g/dL (13.0-17.5); LYMPH # 3.3 x10^3/uL (1.0-4.8); LYMPH % 53 % (24-48); MEAN CORPUSCULAR HEMOGLOBIN 28 pg (25-35); MEAN CORPUSCULAR HGB CONC 33 g/dL (31-37); MEAN CORPUSCULAR VOLUME 84 fL (79-100); MONO # 0.7 x10^3/uL (0.0-1.1); MONO % 12 % (0-9); NEUT # 2.1 x10^3/uL (1.8-7.7); NEUT % 33 % (31-73); PLATELET COUNT 216 x10^3/uL (140-400); RED BLOOD COUNT 5.37 x10^6/uL (4.30-5.70); RED CELL DISTRIBUTION WIDTH 14.5 % (11.5-14.5); WHITE BLOOD COUNT 6.3 x10^3/uL (4.0-11.0)
[2022-03-09 09:55] LABS: CALCIUM 9.2 mg/dL (8.5-10.1); CREATININE 1.3 mg/dL (0.7-1.3); GFR 76.5; POTASSIUM 4.2 mmol/L (3.5-5.1)
[2022-03-09 10:02] LABS: ALBUMIN 3.7 g/dL (3.4-5.0); ALBUMIN/GLOBULIN RATIO 0.9 (1.0-1.7); TOTAL BILIRUBIN 0.4 mg/dL (0.2-1.0); TOTAL PROTEIN 7.7 g/dL (6.4-8.2)
--- NOTE | 2022-03-09 10:16 | RAD ---
PQRS Compliance Statement: One or more of the following individualized dose reduction techniques were utilized for this examinat ion: 1. Automated exposure control 2. Adjustment of the mA and/or kV according to patient size 3. Use of iterative reconstruction technique CT head without contrast 03/09/2022 9:48 AM INDICATION: Altered mental status COMPARISON: CT head 08/27/2021 TECHNIQUE: Multiple axial CT images of the head were obtained from skull base through the vertex with out intravenous contrast. FINDINGS: Head: Ventricles, sulci and basal cisterns are within normal limits. There is no hydrocephalus. Belle-white matter differentiation is normal. There is no acute intracranial hemorrhage. There is no mass, mass e ffect or midline shift. Posterior fossa is normal in appearance. Visualized portions of the orbits are normal. Paranasal sinuses are well aerated. Mastoid air cells a re well aerated. Scalp and calvaria are normal. IMPRESSION: No acute intracranial hemorrhage. Electronically signed by: Kadie Wynne MD (03/09/2022 10:14 AM) [id number]
[2022-03-09 13:01] VITALS: BP 136/77
[2022-03-09] MEDS ORDERED: LEVE500T56 PO (13:45)
--- NOTE | 2022-03-12 10:33 | EKG ---
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
== END 2022-03-09 13:54 | disposition home or self-care (01) ==
LOC: ER 09:25
DX: G40.909 Epilepsy, unspecified, not intractable, without status epilepticus (principal); F17.200 Nicotine dependence, unspecified, uncomplicated; R51.9 Headache, unspecified
CPT/HCPCS: 36415; 70450; 80053; 85025; 93005; 96365; 96375; 99285; J2060; 99284-25